=== PATIENT | female | born 1965 | race Caucasian/White ===

== ENCOUNTER → 2022-08-16 | Outpatient (CLI) | payer OTHER, SELFPAY ==
[2022-08-16 12:45] LABS: Absolute Lymphocyte Count 1.35 X10^3/uL (0.83-4.51); Absolute Neutrophil Count 2.8 X10^3/uL (2.0-7.7); Basophil# 0.03 X10^3/uL; Basophil% 0.6 % (0-1); Eosinophil# 0.19 X10^3/uL; Eosinophils% 3.9 % (0-5); Hematocrit 45.2 % (37-47); Hemoglobin 14.8 g/dL (12.0-15.0); Lymphocyte # 1.35 X10^3/ul (0.83-4.51); Lymphocyte % 27.8 % (19-41); Mean Corp Hgb Conc 32.7 g/dL (32-36); Mean Corpuscular Hgb 31.8 pg (27.0-32.0); Monocyte# 0.48 X10^3/uL; Monocyte% 9.9 % (0-10); NRBC Flagged by Analyzer 0 % (0-5); Neutrophil % 57.6 % (47-70); Platelet Count 283 K/mm3 (150-450); RBC Distribution Width CV 13.2 % (11.6-14.6); RBC Distribution Width SD 47.4 fl (35.1-43.9); Red Blood Count 4.66 M/mm3 (4.2-5.4); White Blood Count 4.9 K/mm3 (4.4-11.0)
[2022-08-16 13:08] LABS: Hemoglobin A1c 4.9 % (3.8-5.6)
[2022-08-16 13:17] LABS: ALB/GLOB Ratio 1.1 RATIO (0.9-2.4); AST(SGOT) 21 U/L (15-37); Alanine Aminotransfer ALT/SGPT 30 U/L (13-56); Albumin, Serum 3.9 g/dL (3.2-5.0); Alkaline Phosphatase 108 U/L (45-117); Anion Gap 3 (5-15); BUN 15 mg/dL (7-18); BUN/Creat Ratio 18.1 RATIO (10-20); Calcium,Total 9.4 mg/dL (8.5-10.1); Chloride 107 mmol/L (98-107); Cholesterol 251 mg/dL (200); Creatinine, Serum 0.83 mg/dL (0.55-1.02); EST Glomerular Filtration Rate 75 mL/min (>60); Est Glom Filt Rate - Afr Amer 91 mL/min (>60); Globulin 3.4 g/dL (2.2-4.2); Glucose 95 mg/dL (74-106); High Density Lipoprotein 94 mg/dL; Potassium 4.5 mmol/L (3.5-5.1); Protein, Total 7.3 g/dL (6.4-8.2); Sodium Level 138 mmol/L (136-145); Thyroid Stim Hormone (TSH) 1.49 uIU/mL (0.358-3.74); Triglycerides 82 mg/dL; Very Low Density Lipoprotein 16 mg/dL (5-40)
== END | disposition home or self-care (01) ==
PROVIDERS: PCP Family Medicine; Visit Provider Family Medicine
DX: Z13.0 Encounter for screening for diseases of the blood and blood-forming organs and certain disorders involving the immune mechanism (principal); Z13.228 Encounter for screening for other metabolic disorders; Z13.220 Encounter for screening for lipoid disorders; Z13.1 Encounter for screening for diabetes mellitus
CPT/HCPCS: 36415; 80053; 80061; 83036; 84443; 85025

== ENCOUNTER → 2022-10-26 | Outpatient (CLI) | payer OTHER, SELFPAY ==
--- NOTE | 2022-10-26 13:07 | BI_ITS ---
MAMMOGRAPHY - BILATERAL SCREENING REASON FOR EXAM: Female, 57 years old. Routine annual screening examination. PERTINENT HISTORY: Non-contributory. TECHNIQUE: Digital bilateral breast darius (3D mammographic acquisition) in the CC and MLO projections. 2-D mediolateral oblique (MLO) and craniocaudad (CC) views of both breasts were obtained. CAD: Full Field Digital Mammography with Computer Added Detection was performed. COMPARISON: Comparison is made with prior abdomen examination February 22, 2021. FINDINGS: Breast Composition: The breasts are heterogeneously dense, which may obscure small masses. There are no dominant masses or suspicious calcifications. Stable asymmetry of breast tissue with more breast tissue seen in the upper lateral aspect of the right breast. No other significant abnormalities are identified. There has been no significant change since the prior study. BI/SCRN MAMM (CAD)W/DARIUS BILAT IMPRESSION: Stable bilateral screening mammogram. Yearly follow-up mammogram recommended. (A) ASSESSMENT CATEGORY: BIRADS Category 2: Benign. A letter regarding these results will be sent to the patient by the facility within 30 days. Approximately 10% of breast cancers are not detected by mammography. A normal mammogram should not delay biopsy of a clinically suspicious abnormality. [id number] Electronically Signed: Adi Johns MD at 14:16 EDT ,
== END | disposition home or self-care (01) ==
LOC: OPBI 13:07
PROVIDERS: PCP Family Medicine; Visit Provider Family Medicine
DX: Z12.31 Encounter for screening mammogram for malignant neoplasm of breast (principal)
CPT/HCPCS: 77063; 77067

== ENCOUNTER 2022-12-29 08:48 | Day surgery (SDC) | payer OTHER, SELFPAY ==
[2022-12-29] VITALS (7 sets, daily range): BP systolic 85–124; BP diastolic 40–89; PULSE 52–64; RESP 16; TEMP 36.2–36.3; O2SAT 100; BMI 29.9
[2022-12-29] MEDS: Lactated Ringers 1,000 ML 15 ML IV (09:36)
--- NOTE | 2022-12-29 10:00 | COLBX_PTH ---
PATIENT: CATALINA CHAN LOC: EN U#:[id number] AGE/SX: 57/F ROOM: RE12/29/[address]: Dr. Cheko Kirby DO : 1965 BED: DIS: 12/29/2022 SPEC #: [id number] RECD: 12/29/22 11:47 STATUS: ASH RESpring #: [id number] KWAKU: 12/29/22 10:[address]: Cheko Kirby DEPT: SURGICAL PATHOLOGY RECD BY: Neelima Perry ENTERED: 12/29/22 13:14 SP TYPE: COLON BX OTHR DR: Adri Ambrocio DO Tissues: COLON BIOPSY Procedures: Surgery Specimen Level IV HEADER OPERATION: Colonoscopy - open access (MAC) PRE-OP DIAGNOSIS: Screening TISSUE SUBMITTED: Splenic flexure polyp MICROSCOPIC DIAGNOSIS Colonic polyp at hepatic flexure, biopsy: Tubular adenoma. AM:fabiola 12/30/2022 MICROSCOPIC DESCRIPTION Slides are reviewed. GROSS DESCRIPTION Received in fixative is one container labeled with the patient's name and designated splenic flexure polyp. The specimen consists of two irregular fragments of light tomlin soft tissue that in aggregate measure 0.6 x 0.3 x 0.1 cm. The specimen is totally submitted in one cassette. / SJ:rg 12/29/2022 TC:5 CPT: 00731
--- NOTE | 2022-12-29 10:13 | PCM.HP.STD ---
[facility] - General General Date of Admission: 12/29/22 Date of Service: 12/29/22 Chief Complaint: Screening colonoscopy HPI Narrative CATALINA CHAN, is a 57 F who presents today for a screening colonoscopy. She had a colonoscopy approximately 5 years ago. It was uneventful. She had some small adenomatous polyps that were removed during that colonoscopy. She does not have any problems with bleeding. She has no chest pain or short of breath. She has no nausea, vomiting or diarrhea. Overall she is in fairly good health. She does not take any medicines on a daily basis. [facility] Medical History (Updated 12/27/22 @ 09:33 by Lore Roca) Achilles tendinitis Alcohol use Arthritis Hx of colonic polyp Hx of vaginal after Non-smoker Post-menopausal Wears glasses Home Medications multivitamin 1 tab PO DAILY 11/03/22 [History Last Taken 12/26/22] cholecalciferol (vitamin D3) 25 mcg (1,000 unit) capsule (Vitamin D3) 25 mcg PO DAILY 12/27/22 [History Last Taken Unknown] Allergy/AdvReac Type Severity Reaction Status Date / Time No Known Allergies Allergy Verified 12/27/22 09:27 Surgical History (Updated 12/27/22 @ 09:33 by Lore Roca) Hx of section Hx of colonoscopy Social History (Updated 11/03/22 @ 11:25 by Angie Olvera) Smoking Status: Never smoker ROS Review of Systems ROS Unobtainable: other Constitutional Constitutional: Denies fatigue, fever(s), poor appetite, weight gain or weight loss ENT HEENT: Denies mouth lesions Cardiovascular Cardiovascular: Denies abdominal bloating, abdominal edema or abdominal pain Respiratory/Chest Respiratory/Chest: Denies change in mental status, change in phlegm color, chest congestion or chest tightness Gastrointestinal Gastrointestinal: Denies belching, bloating, change in bowel habits, change in stool character, chewing difficulty, coffee ground emesis, constipation, cramping, diarrhea, dyspepsia, dysphagia, early satiety, excessive flatus, fecal incontinence, heartburn, hematemesis, hematochezia, hemorrhoids, loose stools, melena, nausea, odynophagia, rectal bleeding, tenesmus, vomiting or weight changes Genitourinary Genitourinary: Denies abdominal discomfort, burning urination or itching Musculoskeletal Musculoskeletal: Reports as per HPI; Denies muscle weakness or myalgias Integumentary Integumentary: Denies jaundice Neurologic Neurologic: Denies lack of coordination or weakness Psychiatric Psychiatric: Denies confusion, depression, memory loss, mood swings, paranoia or suicidal ideation Endocrine Endocrinology: Denies systems reviewed and no addt'l complaints, except as documented Hematologic/Lymphatic Hematologic/Lymphatic: Denies anemia, easy bleeding, easy bruising or lymphadenopathy Allergic/Immunologic Allergic/Immunologic: Denies systems reviewed and no addt'l complaints, except as documented Vital Signs Vital Signs Vital Signs: 12/29/22 09:32 12/29/22 09:32 Temperature 97.4 F L Temperature Source Temporal Pulse Rate 59 L Respiratory Rate 16 Respiratory Pattern Normal Blood Pressure 124/89 H Blood Pressure Mean 100 Blood Pressure Position Sitting Blood Pressure Location Right Arm Pulse Ox 100 Oxygen Delivery Method Room Air Weight Weight: 196 lb 13.965 oz Body Mass Index (BMI) 29.9 Physical Exam Const alert, oriented x3, no apparent distress, healthy appearing and well nourished General Appearance: cooperative, comfortable, well kempt and well developed Orientation / Consciousness: awake and oriented to person HEENT Head and Scalp: normocephalic and atraumatic Face and Sinus: normal facial exam Mouth: oral and palatal mucosa normal Eyes General Eye: normal appearance of both eyes Neck full ROM Lymph Lymphatic: no lymphadenopathy noted Chest inspection of chest normal Resp normal respiratory effort and no use of accessory muscles Cardio regular rate and regular rhythm GI normal to inspection, nondistended, normoactive bowel sounds, soft to palpation, non-tender, non-distended and no masses Auscultation: normoactive bowel sounds Palpation: soft Percussion: normal to percussion Rectal Exam: visual inspection normal and normal sphincter tone no CVA tenderness Back/Spine no CVA tenderness and normal ROM Extremity normal to inspection Peripheral Pulses: Yes pulses 2+ throughout Skin no rashes or lesions noted General Skin Exam: no breakdown, elasticity normal and turgor normal Neuro oriented x3 Motor Exam: strength 5/5 throughout Psych mental status grossly normal Appearance: grossly normal Attitude: calm Activity / Motor Behavior: appropriate eye contact Speech: normal speech Thought Process: normal thought process Thought Content: normal thought content Attention / Concentration: attention grossly intact Memory / Cognition: memory grossly intact Insight: insight good Judgement: judgement good Assessment & Plan Assessment/Plan (1) Encounter for screening for malignant neoplasm of colon: PLAN: She was explained alternatives, risk, the including not withstanding bleeding, infection, sepsis, perforation, need for emergent surgery and . She will have an ASA of 2.
--- NOTE | 2022-12-29 10:56 | OP.COLON_ITS ---
Patient Name: Gerri Georges Procedure Date: 12/29/2022 10:17 AM Date of : 1965 Age: 57 Procedure: Colonoscopy Indications: Screening for colorectal malignant neoplasm Providers: Cheko Kirby DO Referring MD: Adri Ambrocio Do Medicines: Monitored Anesthesia Care Patient Profile: This is a 57 year old female. Refer to note in patient chart for documentation of history and physical. Last Colonoscopy: 5 years ago. Complications: No immediate complications. Procedure: Pre-Anesthesia Assessment: - Prior to the procedure, a History and Physical was performed, and patient medications and allergies were reviewed. The risks and benefits of the procedure and the sedation options and risks were discussed with the patient. All questions were answered and informed consent was obtained. Patient identification and proposed procedure were verified by the physician in the pre-procedure area. Mental Status Examination: alert and oriented. Airway Examination: normal oropharyngeal airway and neck mobility. Prophylactic Antibiotics: The patient does not require prophylactic antibiotics. Prior Anticoagulants: The patient has taken no anticoagulant or antiplatelet agents. ASA Grade Assessment: II - A patient with mild systemic disease. After reviewing the risks and benefits, the patient was deemed in satisfactory condition to undergo the procedure. The anesthesia plan was to use monitored anesthesia care (MAC). Immediately prior to administration of medications, the patient was re-assessed for adequacy to receive sedatives. The heart rate, respiratory rate, oxygen saturations, blood pressure, adequacy of pulmonary ventilation, and response to care were monitored throughout the procedure. The physical status of the patient was re-assessed after the procedure. After I obtained informed consent, the scope was passed under direct vision. Throughout the procedure, the patient's blood pressure, pulse, and oxygen saturations were monitored continuously. The Colonoscope was introduced through the anus and advanced to the cecum, identified by appendiceal orifice and ileocecal valve. The colonoscopy was performed without difficulty. The patient tolerated the procedure well. The quality of the bowel preparation was adequate. The ileocecal valve, appendiceal orifice, and rectum were photographed. Scope In: 10:30:02 AM Scope Withdrawal Time 0 hours 9 minutes 36 seconds Scope Out: 10:43:58 AM Total Procedure Duration Time 0 hours 13 minutes 56 seconds Findings: The perianal and digital rectal examinations were normal. A few small-mouthed diverticula were found in the recto-sigmoid colon and sigmoid colon. A 10 mm polyp was found in the splenic flexure. The polyp was sessile. The polyp was removed with a cold snare. Resection and retrieval were complete. Verification of patient identification for the specimen was done. Estimated blood loss was minimal. The exam was otherwise without abnormality on direct and retroflexion views. Impression: - Diverticulosis in the recto-sigmoid colon and in the sigmoid colon. - One 10 mm polyp at the splenic flexure, removed with a cold snare. Resected and retrieved. - The examination was otherwise normal on direct and retroflexion views. Recommendation: - Discharge patient to home. - Resume previous diet. - Continue present medications. - Await pathology results. - Repeat colonoscopy in 5 years for surveillance. Procedure Code(s): --- Professional --- 18592, Colonoscopy, flexible; with removal of tumor(s), polyp(s), or other lesion(s) by snare technique CPT copyright 2021 [employer]. All rights reserved. The codes documented in this report are preliminary and upon jack tamp operator review may be revised to meet current compliance requirements. Cheko Kirby DO 12/29/2022 10:56:12 AM This report has been signed electronically. Number of Addenda: 0 Note Initiated On: 12/29/2022 10:17 AM
--- NOTE | 2022-12-29 10:56 | OP.CCLET_ITS ---
12/29/2022 Adri Ambrocio Do Re : Colonoscopy procedure for Gerri Georges Dear Lolly This procedure was performed on November. My impressions and recommendations are as follows: Impressions : - Diverticulosis in the recto-sigmoid colon and in the sigmoid colon. - One 10 mm polyp at the splenic flexure, removed with a cold snare. Resected and retrieved. - The examination was otherwise normal on direct and retroflexion views. Recommendations : - Discharge patient to home. - Resume previous diet. - Continue present medications. - Await pathology results. - Repeat colonoscopy in 5 years for surveillance. My findings are described in the full procedure note, which is enclosed. If I can be of further assistance, please feel free to contact me at . Sincerely, Cheko Kirby, 12/29/2022 10:56:12 AM This report has been signed electronically.
== END 2022-12-29 11:31 | disposition home or self-care (01) ==
LOC: EN 08:49 → AC 08:50
PROVIDERS: PCP Family Medicine; Referring Provider Family Medicine; Visit Provider Internal Medicine Gastroenterology
PROC: 0DJD8ZZ Inspection of Lower Intestinal Tract, Via Natural or Artificial Opening Endoscopic (ICD-10-PCS; CPT 45378; principal; 2022-12-29 09:55)
DX: Z12.11 Encounter for screening for malignant neoplasm of colon (principal); D12.3 Benign neoplasm of transverse colon; K57.30 Diverticulosis of large intestine without perforation or abscess without bleeding; Z86.010 Personal history of colon polyps
CPT/HCPCS: 45385; 88305; J7120; J2405

== ENCOUNTER → 2024-03-19 | Outpatient (CLI) | payer OTHER, SELFPAY ==
[2024-03-19 18:07] LABS: ALB/GLOB Ratio 1.1 RATIO (0.9-2.4); AST(SGOT) 20 U/L (15-37); Alanine Aminotransfer ALT/SGPT 25 U/L (13-56); Albumin, Serum 4.1 g/dL (3.2-5.0); Alkaline Phosphatase 120 U/L (45-117); Anion Gap 6 (5-15); BUN 17 mg/dL (7-18); Calcium,Total 10.1 mg/dL (8.5-10.1); Chloride 105 mmol/L (98-107); Cholesterol 249 mg/dL (200); EST Glomerular Filtration Rate 68 mL/min (>60); Est Glom Filt Rate - Afr Amer 83 mL/min (>60); Globulin 3.6 g/dL (2.2-4.2); Glucose 96 mg/dL (74-106); High Density Lipoprotein 107 mg/dL; Potassium 4.2 mmol/L (3.5-5.1); Protein, Total 7.7 g/dL (6.4-8.2); Sodium Level 136 mmol/L (136-145); Triglycerides 81 mg/dL; Very Low Density Lipoprotein 16 mg/dL (5-40)
== END | disposition home or self-care (01) ==
PROVIDERS: PCP Family Medicine; Visit Provider Family Medicine
DX: E78.2 Mixed hyperlipidemia (principal); E55.9 Vitamin D deficiency, unspecified
CPT/HCPCS: 36415; 80053; 80061; 82306

== ENCOUNTER 2025-01-09 16:17 | Emergency (ER) | payer OTHER, SELFPAY ==
[2025-01-09 16:19] VITALS: BP 141/75; PULSE 68; RESP 16; TEMP 36.6; O2SAT 100; BMI 31.1
--- NOTE | 2025-01-09 16:37 | EX.ED.GENINJ ---
HPI History of Present Illness Chief Complaint: Bite Detail of Chief Complaint: Bite volar surface right arm, awoke with bat in bedroom Informant: patient Onset/Context/Timing Onset: Weeks (01/01/2025) Mechanism/Context: Puncture Wound (2 puncture wounds mid right forearm volar surface) Location of pain/injuries: Right forearm Location: Forearm both looser Current Severity: Evidence of bite rizwana with no obvious cellulitis or abscess Maximum Severity: Not applicable Worsened by: Nothing Relieved by: Nothing Associated Symptoms Associated Symptoms: Negative for Parasthesias, Weakness, Loss of function, Inability to ambulate, Loss of consciousness or Amnesia Narrative Narrative: Patient is a healthy 59-year-old vitamins who presents because she has a bite to the volar surface of her right forearm. This occurred a week ago. She awoke that morning with a bat in her room. Daughter who is a bat in is concerned this represents a bat bite. Regardless she needs to be vaccinated since she awoke with a bat in her bedroom. She has no fever, chills night sweats. She denies paresthesia, anesthesia or motor weakness. She has no symptoms. Prior similar symptoms: No Recent Illness/Hospitalization: No PFSH PFS Medical History Wears glasses Post-menopausal Alcohol use Arthritis Non-smoker Achilles tendinitis Hx of vaginal after Hx of colonic polyp Home Medications ?Medication ?Instructions ?Recorded ?Last Taken ?Type multivitamin 1 tab PO DAILY 11/03/22 12/26/22 History cholecalciferol (vitamin D3) 25 25 mcg PO DAILY 12/27/22 Unknown History mcg (1,000 unit) capsule (Vitamin D3) Allergy/AdvReac Type Severity Reaction Status Date / Time No Known Allergies Allergy Verified 01/09/25 16:19 Surgical History Hx of section Hx of colonoscopy Social History Smoking Status: Never smoker ROS ROS ED Constitutional Constitutional ED: Denies chills, fever(s), subjective or sweats Eyes Eyes: Denies change in vision Gastrointestinal Gastrointestinal: Denies nausea or vomiting Neurologic Neurologic: Denies paresthesias or weakness EXAM Physical Exam Const Vital Signs: 01/09/25 16:19 Temperature 97.8 F Temperature Source Temporal Pulse Rate 68 Respiratory Rate 16 Blood Pressure 141/75 H Blood Pressure Mean 97 Pulse Ox 100 Oxygen Delivery Method Room Air Positive well nourished and well developed General Appearance ED: well developed and NAD HEENT atraumatic Eyes PERRL Cardio regular rhythm and S1 normal heart sound Extremity full ROM; Negative for normal to inspection Extremity Narrative: Axillary, median, radial and ulnar function intact. Sensation is normal. Patient has 2 puncture wounds volar surface of right forearm. Concerned this may represent a bat bite. Will order rabies immunoglobulin and vaccine. Also will send patient home with order for outpatient vaccination complete series. Neuro oriented x3 and CN's II-XII intact bilaterally Sensorium / Orientation: alert Psych mental status grossly normal and thought process normal Skin No no wounds MDM MDM MDM Narrative Medical decision making narrative: Since patient has puncture wound daughter who is a inspector and mender is concerned this puncture was consistent with bat bite and the fact that she awoke with a bat in her bedroom will vaccinate for rabies. No testing is indicated. Discharge Plan Triage Chief Complaint: Bite ED Provider: Toribio Huntley Dx/Rx/DC Orders Clinical Impression: Bat bite wound, Elevated blood-pressure reading without diagnosis of hypertension Instructions: ED Animal Bite (General), ED Hypertension, To Be Confirmed Prescriptions: No Action multivitamin Tablet 1 tab PO DAILY cholecalciferol (vitamin D3) [Vitamin D3] 25 mcg (1,000 unit) capsule 25 mcg PO DAILY Primary Care Provider: Isaac Pgua Referrals: Isaac Puga MD [Primary Care Provider] - 1-2 Weeks Print Language: Mosotho Disposition Disposition: Home, Self Care
[2025-01-09] MEDS: Rabies Immune Globulin/PF 300 UNIT/ML, 1 ML VIAL 360 UNIT IM (17:20)
[2025-01-09] MEDS: Rabies Immune Globulin/PF 300 UNIT/ML, 5 ML VIAL 1500 UNIT IM (17:20)
[2025-01-09 17:47] VITALS: BP 145/72; PULSE 54; RESP 18; TEMP 36.8; O2SAT 100
== END 2025-01-09 17:48 | disposition home or self-care (01) ==
LOC: ED 16:51
PROVIDERS: Emergency Provider Emergency Medicine; PCP Family Medicine; Visit Provider Emergency Medicine
DX: S50.871A Other superficial bite of right forearm, initial encounter (principal); W55.81XA Bitten by other mammals, initial encounter; R03.0 Elevated blood-pressure reading, without diagnosis of hypertension; Z20.3 Contact with and (suspected) exposure to rabies
CPT/HCPCS: 90675; 96372; 99282; 90375

== ENCOUNTER 2025-01-12 17:19 | Outpatient (CLI) | payer OTHER, SELFPAY ==
[2025-01-12 17:20] VITALS: BP 127/77; PULSE 69; RESP 18; TEMP 36.7; O2SAT 99; BMI 31.6
--- OUTSIDE RECORDS SUMMARY | 2025-01-12 17:37 | XMS RPT_ITS | CCD ---
Author Organization [facility] Care Team Providers Care Director Surface Transportation Name Role Phone MABLEANJELICA SUGAR SOLEDAD Referring Unavailable Janneth Dale MD Primary Care Provider [phone] DO Adri Ambrocio Primary Care Provider [phone] Angie Olvera Attending Provider Unavailable DO Adri Ambrocio Referring Provider Friend, Dr. Still Attending Provider Friend, Dr. Still Other Provider [phone] Janneth Dale MD Primary Care Provider Dr. Soledad Nuñez MD Primary Care Provider Dr. Toribio Huntley MD Emergency Provider [phone] SOLEDAD NUÑEZ Referring Unavailable SOLEDAD NUÑEZ Consulting Unavailable DESTINY PORTER DO Attending Unavailable DESTINY PORTER DO Primary Care Unavailable DESTINY PORTER DO Admitting Unavailable PROVIDER, UNKNOWN Consulting Unavailable Soledad Nuñez Attending Unavailable Soledad Nuñez Primary Care Unavailable Toribio Huntley Attending Unavailable Soledad Nuñez Primary Care Unavailable Medications Current Medications Medication Drug Class(es) Dates Sig (Normalized) Sig (Original) cholecalciferol 0.025 mg oral capsule (5 sources) Vitamin D Start: 12-27-2022 take 1 capsule by mouth once daily Cholecalciferol (Vitamin D3) (Vitamin D3) 25 mcg (1,000 unit) capsule Active 25 ug PO DAILY December 27, 2022 12:00am Start: 05-07-2020 take 1 capsule by [facility] every week cholecalciferol, Vitamin D3, (VITAMIN D3) 1,250 mcg (50,000 unit) cap capsule Indications: Vitamin D deficiency Take 1 capsule by mouth one time a week. 12 capsule 05/07/2020 Active Comment on above: Take 1 capsule by mo uth one time a week. Multivitamin preparation (1 source) Start: 3 take 1 tablet by mouth once daily Multivitamin Active 1 TABLET PO DAILY November 03, 2022 12:00am MULTIVITAMIN TAB (3 sources) Start: 8 MULTIVITAMIN TAB Take one(1) tablet daily. 0 08/03/2007 Active Comment on above: Take one(1) tablet d aily. Multivitamin tablet (1 source) Start: 3 Multivitamin tablet Active 1 {tbl} PO DAILY November 03, 2022 12:00am [place]-3 Fatty Acids-Vitamin E (FISH OIL) 1,000 mg ORAL Cap (3 sources) Start: 1 take 1 capsule by mouth twice daily [place]-3 Fatty Acids-Vitamin E (FISH OIL) 1,000 mg ORAL Cap Take 1 capsule by mouth twice daily. 10/20/2010 Active Start: 10-20-2010 take 1 capsule by mo uth twice daily [place]-3 Fatty Acids-Vitamin E (FISH OIL) 1,000 mg ORAL Cap Take 1 capsule by mouth twice daily. 0 10/20/2010 Active Comment on above: Take 1 capsule by mo uth twice daily. Problems Active Problems Problem Classification Problem Date Documented Date Episodic/Chronic Disorders of lipid metabolism (4 sources) Mixed hyperlipidemia; Translations: [Mixed hyperlipidemia] Onset: 01-25-2019 01-25-2019 Chronic E Codes: Natural/environment (1 source) Mammal bite wound; Translations: [Bitten by other mammals, initial encounter] 01-09-2025 Episodic Joint disorders and dislocations; trauma-related (3 sources) Patellofemoral stress syndrome; Translations: [Patellofemoral disorders, unspecified knee] Onset: 01-11-2012 01-25-2019 Chronic Other circulatory disease (1 source) Elevated blood-pressure reading without diagnosis of hypertension; Translations: [Elevated blood-pressure reading, without diagnosis of hypertension] 01-09-2025 Episodic Other screening for suspected conditions (not mental disorders or infectious disease) (7 sources) Encounter for other screening for malignant neoplasm of breast; Translations: [Patient encounter status] Onset: 06-29-2018 Episodic Other upper respiratory disease (3 sources) Allergic rhinitis due to pollen; Translations: [Allergic rhinitis due to pollen] 03-01-2021 Chronic Varicose veins of lower extremity (3 sources) Venous varices; Translations: [Varicose veins of other sites] 01-25-2019 Episodic Past or Other Problems Problem Classification Problem Date Documented Date Episodic/Chronic Blindness and vision defects (12 sources) Myopia; Translations: [Myopia, unspecified eye] Onset: 08-13-2014 08-13-2014 Episodic Menstrual disorders (1 source) Intermenstrual bleeding - irregular; Translations: [Excessive and frequent menstruation with irregular cycle] Resolved: 01-25-2019 01-25-2019 Chronic Results Test Name Value Interpretation Reference Range Facility ED MED ADMINISTRATION DETAIL on 01-09-2025 ED MED ADMINISTRATION DETAIL [facility] - GERRI GEORGES : 1965, , Medication Administration Record [address] [address] [id number] 01/09/2025 Patient: GERRI GEORGES Sex: Female : 1965 Age: 59y MEASUREMENTS: Wt: 83.9 kg, Ht/Gerber: 68.0 in, BMI: 28.13 ALLERGIES: No known drug allergies Medication Ordered Medication Administration Date/Time Amoxicillin-Clav 15:38 01/09 Amoxicillin-Clav (Augmentin) PO 875 mg-125 mg Tab Given (Augmentin) PO 875 1 tab given. Allergies verified and confirmed 5 rights. Information 15:38 01/09/2025 mg-125 mg Tab 1 reviewed with patient including reason for taking this medication, Tamai Benítez R.N. tab (NOW x1) signs of allergic reaction and precautions. Verbalizes Scanned understanding. - 15:38 Tamia Benítez R.N. Tdap IM 15:35 01/09 Tdap IM DIPTH/TETANUS/PERT > 7yr and older Refused DIPTH/TETANUS/P refused. Refused by patient because of Patient is up-to-date - 15:35 01/09/2025 ERT > 7yr and older 15:46 Ishmael Curry R.N. 0.5 mL (NOW x1) Tdap IM 15:49 01/09 Tdap IM DIPTH/TETANUS/PERT > 7yr and older Refused DIPTH/TETANUS/P refused. Refused by patient because of up to date on tetnus, 15:49 01/09/2025 ERT > 7yr and older recieved one year ago - 15:49 David Lopez D.O. David Lopez D.O. 0.5 mL (NOW x1) 1 of 1 Normal [facility] ED NURSES CLINICAL NOTEon ED NURSES CLINICAL NOTE Nurse Narrative - GERRI GEORGES, : 1965, , Nurse Clinical Narrative [address] [address] [id number] 01/09/2025 14:31:00 Patient: GERRI GEORGES Sex: Female : 1965 Age: 59y Disposition: Discharge to [facility]/Invalid Disposition Decision Time: 15:26 01/09/2025 Departure Time: 15:41 01/09/2025 TRIAGE Arrived by private vehicle. Historian: (patient). Accompanied by family. Patient has a primary care physician. Primary physician (tor). Triage time: 14:34 01/09/2025. Acuity: LEVEL 4. Chief Complaint: BAT BITE. Location of injuries: right forearm. ( pt was in bed about a week ago and had a bat in her bedroom. pt noticed an odd bite rizwana on her right forearm soon after that. pt is concerned from rabies). SEPSIS SCREEN: NEGATIVE. SIRS criteria negative. No possible sources of infection. -- 14:39 01/09/25 EDT Bj Medina R.N. 14:37 01/09/25. BP: 151/71 MAP: 98. HR: 66. RR: 18. O2 saturation: 99% Temperature: 97.9 F. Pain level now 0/10. -- 14:39 01/09/25 EDT Bj Medina R.N. Measurements: 14:39 01/09/25 Wt: 83.9 kg, Ht/Gerber: 68.0 in, BMI: 28.13 -- 14:39 01/09/25 EDT Bj Medina R.N. Medications: Vitamin D3 Complete 18 mg iron-800 mcg-150 mg tablet -- 14:37 01/09/25 EDT Bj Medina R.N. 1 of 3 Nurse Jesus - GERRI GEORGES, : 1965, , Allergies: no known drug allergies -- 14:37 01/09/25 EDT Bj Medina R.N. Problems: no known problem -- 14:37 01/09/25 EDT Bj Medina R.N. Surgeries: -- 14:37 01/09/25 EDT Bj Medina R.N. Lasik -- 14:37 01/09/25 EDT Bj Medina R.N. History 14:34 01/09/25. SOCIAL HX: Never smoker. Occasional alcohol use. No drug use. The patient has not traveled outside the [place] Infectious disease exposure: No infectious disease exposure. ABUSE ASSESSMENT: Abuse denied. SELF HARM ASSESSMENT: Self harm assessment was performed. The patient answered no to the question(s) Do you have thoughts of harming or killing yourself? and Do you have a plan for harming or killing yourself?. FALL RISK ASSESSMENT: Fall risk assessment completed. No risk factors identified. -- 14:39 01/09/25 EDT Bj Medina R.N. Interventions 14:01/09/25. Advanced care plan discussed with patient. Patient does not have advanced directive. -- 14:39 01/09/25 EDT Bj Medina R.N. PHYSICAL ASSESSMENT 15:00 01/09/25. GENERAL / NEURO / PSYCH: Alert. Oriented X 4. Appears in no acute distress. RESPIRATORY: Respirations not labored. Breath sounds within normal limits. 2 of 3 Nurse Narrative - GERRI GEORGES, : 1965, , CVS: Normal heart rate and rhythm. EXTREMITIES: Right forearm: single puncture wound. -- 15:44 01/09/25 EDT Tamia Benítez R.N. NURSING PROGRESS NOTES 15:11 01/09/25. ED physician at the patient's bedside. -- 15:11 01/09/25 EDT Tamia Benítez R.N. 15:35 01/09/25. Tdap IM DIPTH/TETANUS/PERT > 7yr and older: Medication Refused. Refused by patient because of Patient is up-to-date -- 15:46 01/09/25 EDT Tamia Benítez R.N. 15:38 01/09/25. Amoxicillin-Clav (Augmentin) PO 875 mg-125 mg Tab 1 tab given. Allergies verified and confirmed 5 rights. Information reviewed with patient including reason for taking this medication, signs of allergic reaction and precautions. Verbalizes understanding. -- 15:38 01/09/25 EDT Tamia Benítez R.N. 15:49 01/09/25. Tdap IM DIPTH/TETANUS/PERT > 7yr and older: Medication Refused. Refused by patient because of up to date on tetnus, recieved one year ago -- 15:49 01/09/25 EDT David Lopez D.O. DISPOSITION / DISCHARGE 15:33 01/09/25. BP: 141/74 MAP: 96. HR: 66. Regular and normal rate. RR: 15. O2 saturation: 96% on room air. Temperature: Deferred . Pain level now 0/10. -- 15:49 01/09/25 EDT Tamia Benítez R.N. Departure time: 15:41 01/09/2025. Condition at departure: stable. No learning barriers present. Discharge instructions provided and reviewed with the patient. Reviewed medication(s) side effects, precautions, dosing and course information. Prescription(s) sent electronically to pharmacy. Reviewed referrals (Patient is to go to [place] [facility] for rabies vaccination). Patient verbalized understanding. Written instructions provided in Maori. The patient was discharged home and accompanied by spouse. The patient left ambulatory and via private vehicle. Spouse driving. -- 15:50 01/09/25 EDT Tamia Benítez R.N. (Electronically signed by Tamia Benítez R.N. 01/09/25 15:53:05 EDT) Generated by [facility] 3 of 3 [facility] ED ORDER SHEET (CPOE ONLY)on 01-09-2025 ED ORDER SHEET (CPOE ONLY) Order Sheet - GERRI GEORGES, : 1965, , Order Sheet [address] [address] [id number] 01/09/2025 Patient: GERRI GEORGES Sex: Female : 1965 Age: 59y MEASUREMENTS: Wt: 83.9 kg, Ht/Gerber: 68.0 in, BMI: 28.13 ALLERGIES: No known drug allergies MEDICATION/IV/DRIP/F LUID ORDERS Order Description Priority Entered Acknowledged Completed Amoxicillin-Clav (Augmentin) 15:22 01/09/2025 15:34 15:38 PO 875 mg-125 mg Tab1 tab David Lopez D.O. 01/09/2025 01/09/2025 (NOW x1) Tamia Curry, R.N. R.N. Tdap IM DIPTH/TETANUS/PERT 15:22 01/09/2025 15:34 15:46 > 7yr and older0.5 mL (NOW x1) David Lopez D.O. 01/09/2025 01/09/2025 Tamia Curry, R.N. R.N. LAB ORDERS Order Description Priority Entered Acknowledged Collected Completed DIAGNOSTIC STUDY ORDERS Order Description Priority Entered Acknowledged Completed STAFF ORDERS Order Description Priority Entered Acknowledged Collected Completed 1 of 2 Order Sheet - GERRI GEORGES, : 1965, , [Electronically signed by David Lopez D.O. (01/09/2025 19:33 EDT)] 2 of 2 Normal [facility] ED PHYSICIAN CLINICAL REPORT on 01-09-2025 ED PHYSICIAN CLINICAL REPORT Narrative - GERRI GEORGES, : 1965, , Physician Clinical Narrative [address] [address] [id number] 01/09/2025 14:31:00 Patient: GERRI GEORGES Sex: Female : 1965 Age: 59y Disposition: Discharge to Duplicate/Invalid Disposition Decision Time: 15:26 01/09/2025 Departure Time: 15:41 01/09/2025 Measurements Wt: 83.9 kg, Ht/Gerber: 68.0 in, BMI: 28.13 Initial Vital Sign Measured Time BP MAP HR RR O2Sat ETCO2 Temp Pain GCS RTS 14:37 01/09/2025 151/71 98 66 18 99% 97.9 F 0 Time Seen: 14:56 01/09/2025. Arrived- By private vehicle. Historian- patient. Independent historian- family. HISTORY OF PRESENT ILLNESS Chief Complaint: BAT BITE. Location of injuries- right forearm. The animal was not captured. The patient has had itching. REVIEW OF SYSTEMS CONSTITUTIONAL: No fever. GI: No nausea, abdominal pain or vomiting. CVS: No chest pain. RESPIRATORY: No difficulty breathing. NEUROLOGICAL: No numbness, headache or weakness. MUSCULOSKELETAL: The patient has had swelling. PAST HISTORY 1 of 4 Narrative - GERRI GEORGES, : 1965, , See nurses notes. no known problem Surgeries: Lasik Medications: Vitamin D3 Complete 18 mg iron-800 mcg-150 mg tablet Allergies: no known drug allergies SOCIAL HISTORY Never smoker. No alcohol use or drug use. ADDITIONAL NOTES The nursing notes have been reviewed. PHYSICAL EXAM Appearance: Alert. Oriented X3. No acute distress. Head: Head normal on inspection. Eyes: Eyes normal inspection. ENT: Nose normal on inspection. Mouth normal on inspection. Neck: Normal inspection. Neck non-tender. Painless ROM. CVS: Heart sounds normal. Pulses normal. Respiratory: Chest normal on inspection. Breath sounds normal. Chest nontender. Abdomen: Normal inspection. Soft and nontender. Bowel sounds normal. Back: ROM normal. Skin: (small bite wound noted to volar aspect right forearm. Looks like 2 puncture wounds side by side. Mildly red. No lymphangitic streaking.). Extremities: Right forearm: mild erythema and swelling and multiple puncture wounds with controlled bleeding located in the mid volar aspect of forearm. No tenderness, laceration, abrasion, ecchymosis or foreign body. No deformity. No avulsion. Neuro: Oriented X 3. No motor deficit. No sensory deficit. 2 of 4 Narrative - GERRI GEORGES, : 1965, , PROGRESS AND PROCEDURES MEDICAL DECISION MAKING: Antibiotics were given. (Tdap 0.5 cc IM). (59 year old white female states that she noted a bat flying around in her bedroom last week on monday eveing / Monday am. About the same time noted a bite wound to volar aspect right forearm but doesn't know if the bat bit her. Sister is a vetrinarian and was concerned about rabies and told patient to come to ER for rabies vaccination. On exam I do note two small puncture wounds side by side to volar mid forearm with a small amount of surrounding redness. Not warm or tender to touch. No lymphangitic streaking. We do not carry the rabies vaccine here. [place] [facility] does carry it and so does the [facility] department. But not the [facility] department. I advised patient to go to [place] ER. But they can try following with the health deparment in [place] today if they wish but I told her we need to get the vaccine series started TODAY. So wherever place can get things going today. I told her I felt the ER in [place] is a better choice because they are open 21/11. Patient up to date on her tetnus. Got one one year ago, so I canceled my tetnus shot order.). Disposition: Condition: good. Disposition Decision Time: 15:26 01/09/2025. Patient discharged to Duplicate/Invalid. Discharged in good condition. Discharge decision based on the following: patient's condition is stable; patient is ambulatory; patient's pain is controlled; patient's exam is stable; stable condition on multiple repeat evaluations; social support is adequate; transportation is available; follow-up is available; clinical impression is consistent with outpatient treatment. Go directly to [facility] ER now to get the rabies vaccine. CLINICAL IMPRESSION Multiple superficial bat bites to the right forearm. DISCHARGE INSTRUCTIONS (Go directly to [facility] for the rabies series of shots now. We don't have the rabies vaccine here. [facility] in [place], [place] also has the rabies vaccine and they are open till 4:30 pm but the ER in [place] might be more reliable palce to go. Take medication as prescribed.). Warnings: GENERAL WARNINGS: Return or contact your physician immediately if your condition worsens or changes unexpectedly, if not improvin (more content not included)... Normal [facility] ED [facility] 1965, , [id number] [place] [address] [id number] 01/09/2025 Patient: GERRI GEORGES Sex: Female : 1965 Age: 59y Item Professional Category Description Facility Code Code Quantity Fee Total Nurse/E/M EMERGENCY 086279 1 $0.00 $0.00 DEPARTMENT VISIT MODERATE SEVERITY (54185) Grand Total $0.00 Providers David Lopez D.O. Chief Complaint BAT BITE. Principal Diagnosis Multiple superficial bat bites to the right forearm. ICD-10 Codes 1 of 2 GERRI Lu, : 1965, , S50.871A: Other superficial bite of right forearm, initial encounter 2 of 2 Normal [facility] ED VISIT SUMMARYon ED VISIT SUMMARY Visit Overview - GERRI GEORGES, : 1965, , Visit [id number] [place] [address] [id number] 01/09/2025 Patient: GERRI GEORGES Sex: Female : 1965 Age: 59y 01/09/2025 07:33 PM EDT ED Arrival:14:31 01/09/2025 EDT Status: Recent Travel:no Language:eng Adv Directive:No Isolation Status: Ethnicity:N Fall Risk:no risk Infectious Disease Exposure:no Measurements:5'8 / 172.7 Self-Harm Status:no risk Sepsis Screen:negative cm 185.0 lb / 83.9 kg Chief Complaint:BAT, (pt was in bed about a week ago and had a bat in her bedroom. pt noticed an odd bite rizwana on her right forearm soon after that. pt is concerned from rabies), and (schinner) ALLERGIES No Known Drug Allergies HOME MEDICATIONS Vitamin D3 Complete 18 mg iron-800 mcg-150 mg tablet 1 of 3 Visit David - GERRI GEORGES, : 1965, , PAST MEDICAL HISTORY / PROBLEMS None See nurses notes PAST SURGICAL HISTORY Lasik SOCIAL HISTORY Smoking status: No Alcohol use: Yes Drug use: No ED COURSE MEDICATIONS GIVEN IN EMERGENCY DEPARTMENT 15:38 01/09/25 Amoxicillin-Clav (Augmentin) PO 875 mg-125 mg Tab 1 tab IV SITE INFORMATION INTAKE OUTPUT REASSESMENT (most recent) 15:00 01/09/25. GENERAL / NEURO / PSYCH: Alert. Oriented X 4. Appears in no acute distress. RESPIRATORY: Respirations not labored. Breath sounds within normal limits. CVS: Normal heart rate and rhythm. EXTREMITIES: Right forearm: single puncture wound. VITAL SIGNS First Vitals Last Vitals Temp 14:37 01/09/25 97.9 F Temp 15:33 01/09/25 BP 14:37 01/09/25 151/71 BP 15:33 01/09/25 141/74 HR 14:37 01/09/25 66 HR 15:33 01/09/25 66 RR 14:37 01/09/25 18 RR 15:33 01/09/25 15 O2 Sat 14:37 01/09/25 99% O2 Sat 15:33 01/09/25 96% RA 2 of 3 Visit GERRI Perez, : 1965, , First Vitals Last Vitals Pain 14:37 01/09/25 0 Pain 15:33 01/09/25 0 ETCO2 14:37 01/09/25 ETCO2 15:33 01/09/25 GCS 14:37 01/09/25 GCS 15:33 01/09/25 RTS 14:37 01/09/25 RTS 15:33 01/09/25 PROCEDURES NURSING INTERVENTIONS LABS / STUDIES CLINICAL IMPRESSION MULTIPLE SUPERFICIAL BAT BITES TO THE RIGHT FOREARM 3 of 3 Normal [facility] ED VITALS FLOW SHEETon 01-09 ED VITALS FLOW SHEET Vitals - GERRI GEORGES, : 1965, , Vital Sign Flow Sheet [address] [address] [id number] 01/09/2025 Patient: GERRI GEORGES Sex: Female : 1965 Age: 59y Measurements Wt: 83.9 kg, Ht/Gerber: 68.0 in, BMI: 28.13 Measured Time BP MAP HR RR O2Sat ETCO2 Temp Pain GCS RTS 15:33 01/09/2025 141/74 96 66 15 96% RA 0 14:37 01/09/2025 151/71 98 66 18 99% 97.9 F 0 1 of 1 Normal [facility] Emergency Department Summary on 01-09-2025 Emergency Department Summary [facility] Medical Records Department [address] [place] [address] Emergency Department Summary 01/09/25 MR#: [id number] Acct: [id number] Name: GERRI GEORGES Rep #: [id number] : 1965 59 From: Toribio Huntley MD PCP: Dr. Soledad Nuñez MD Status:PRE ER Location: ED HPI History of Present Illness Chief Complaint: Bite Detail of Chief Complaint: Bite volar surface right arm, awoke with bat in bedroom Informant: patient Onset/Context/Timing Onset: Weeks (01/01/2025) Mechanism/Context: Puncture Wound (2 puncture wounds mid right forearm volar surface) Location of pain/injuries: Right forearm Location: Forearm both looser Current Severity: Evidence of bite rizwana with no obvious cellulitis or abscess Maximum Severity: Not applicable Worsened by: Nothing Relieved by: Nothing Associated Symptoms Associated Symptoms: Negative for Parasthesias, Weakness, Loss of function, Inability to ambulate, Loss of consciousness or Amnesia Narrative Narrative: Patient is a healthy 59-year-old vitamins who presents because she has a bite to the volar surface of her right forearm. This occurred a week ago. She awoke that morning with a bat in her room. Daughter who is a bat in is concerned this represents a bat bite. Regardless she needs to be vaccinated since she awoke with a bat in her bedroom. She has no fever, chills night sweats. She denies paresthesia, anesthesia or motor weakness. She has no symptoms. Prior similar symptoms: No Recent Illness/Hospitalizat ion: No PFSH PFSH Medical History Wears glasses Post-menopausal Alcohol use Arthritis Non-smoker Achilles tendinitis Hx of vaginal after Hx of colonic polyp Home Medications ???Medication ???Instructions ???Recorded ???Last Taken ???Type multivitamin 1 tab PO DAILY 11/03/22 12/26/22 H istory cholecalciferol (vitamin D3) 25 25 mcg PO DAILY 12/27/22 Unknown H istory mcg (1,000 unit) capsule (Vitamin D3) Allergy/AdvReac Type Severity Reaction Status Date / Time No Known Allergies Allergy Verified 01/09/25 16:19 Surgical History Hx of section Hx of colonoscopy Social History Smoking Status: Never smoker ROS ROS ED Constitutional Constitutional ED: Denies chills, fever(s), subjective or sweats Eyes Eyes: Denies change in vision Gastrointestinal Gastrointestinal: Denies nausea or vomiting Neurologic Neurologic: Denies paresthesias or weakness EXAM Physical Exam Const Vital Signs: 01/09/25 16:19 Temperature 97.8 F Temperature Source Temporal Pulse Rate 68 Respiratory Rate 16 Blood Pressure 141/75 H Blood Pressure Mean 97 Pulse Ox 100 Oxygen Delivery Method Room Air Positive well nourished and well developed General Appearance ED: well developed and NAD HEENT atraumatic Eyes PERRL Cardio regular rhythm and S1 normal heart sound Extremity full ROM; Negative for normal to inspection Extremity Narrative: Axillary, median, radial and ulnar function intact. Sensation is normal. Patient has 2 puncture wounds volar surface of right forearm. Concerned this may represent a bat bite. Will order rabies immunoglobulin and vaccine. Also will send patient home with order for outpatient vaccination complete series. Neuro oriented x3 and CN's II-XII intact bilaterally Sensorium / Orientation: alert Psych mental status grossly normal and thought process normal Skin No no wounds MDM MDM MDM Narrative Medical decision making narrative: Since patient has puncture wound daughter who is a right of way maintenance supervisor is concerned this puncture was consistent with bat bite and the fact that she awoke with a bat in her bedroom will vaccinate for rabies. No testing is indicated. Discharge Plan Triage Chief Complaint: Bite ED Provider: Toribio Huntley Dx/Rx/DC Orders Clinical Impression: Bat bite wound, Elevated blood-pressure reading without diagnosis of hypertension Instructions: ED Animal Bite (General), ED Hypertension, To Be Confirmed Prescriptions: No Action multivitamin Tablet 1 tab PO DAILY cholecalciferol (vitamin D3) [Vitamin D3] 25 mcg (1,000 unit) capsule 25 mcg PO DAILY Primary Care Provider: Soledad Nuñez Referrals: Soledad Nuñez MD [Primary Care Provider] - 1-2 Weeks Print Language: Maori Disposition Disposition: Home, Self Care What to do if you have Problems For any increased pain, shortness of breath, bleeding, nausea or vomiting, chest pain, or any unexpected problems, contact your Primary Care Provider. Call [facility] ([phone]) or report to the closest Emergency Room. Ca (more content not included)... Normal [facility] Comprehensive Metabolic Prof alvaro 03-19-2024 Albumin [Mass/Vol] 4.1 g/dL Normal 3.2-5.0 [facility] Comment on above: Order Comment: Order Date: 03/19/24 Order Info: [id number] - CMP Order Info: [id number] - LIPID Performed By: #### L 506.1000, L500.4100, L500.4050 #### [facility] [address] Kit [place], [address] Albumin/Globulin [Mass ratio] 1.1 {ratio} Normal 0.9-2.4 [facility] Comment on above: Order Comment: Order Date: 03/19/24 Order Info: [id number] - CMP Order Info: [id number] - LIPID Performed By: #### L 506.1000, L500.4100, L500.4050 #### [facility] [address] [place], [address] ALK P 120 U/L High 45-117 [facility] Comment on above: Order Comment: Order Date: 03/19/24 Order Info: [id number]- - CMP Order Info: [id number] - LIPID Performed By: #### L 506.1000, L500.4100, L500.4050 #### [facility] [address] [place], [address] ALT [Catalytic activity/Vol] 25 U/L Normal 13-56 [facility] Comment on above: Order Comment: Order Date: 03/19/24 Order Info: [id number]- - CMP Order Info: [id number] - LIPID Performed By: #### L 506.1000, L500.4100, L500.4050 #### [facility] [address] [place], [address] AST [Catalytic activity/Vol] 20 U/L Normal 15-37 [facility] Comment on above: Order Comment: Order Date: 03/19/24 Order Info: [id number]- - CMP Order Info: [id number] - LIPID Performed By: #### L 506.1000, L500.4100, L500.4050 #### [facility] [address] [place], [address] Bilirubin [Mass/Vol] 0.60 mg/dL Normal 0.20-1.00 [facility] Comment on above: Order Comment: Order Date: 03/19/24 Order Info: [id number] - CMP Order Info: [id number] - LIPID Result Comment: For patients on eltrombopag therapy, use of [employer] TBIL is not recommended. Performed By: #### L 506.1000, L500.4100, L500.4050 #### [facility] [address] [place], [address] BUN/CRE 19.0 RATIO Normal 10-20 [facility] Comment on above: Order Comment: Order Date: 03/19/24 Order Info: 07-1 - CMP Order Info: [id number] - LIPID Performed By: #### L 506.1000, L500.4100, L500.4050 #### [facility] [address] [place], [address] CA,Total 10.1 mg/dL Normal 8.5-10.1 [facility] Comment on above: Order Comment: Order Date: 03/19/24 Order Info: [id number]- - CMP Order Info: [id number] - LIPID Performed By: #### L 506.1000, L500.4100, L500.4050 #### [facility] [address] [place], [address] Chloride [Moles/Vol] 105 mmol/L Normal 98-107 [facility] Comment on above: Order Comment: Order Date: 03/19/24 Order Info: [id number] - CMP Order Info: [id number] - LIPID Performed By: #### L 506.1000, L500.4100, L500.4050 #### [facility] [address] [place], [address] CO2 [Moles/Vol] 26.0 mmol/L Normal 21.0-32.0 [facility] Comment on above: Order Comment: Order Date: 03/19/24 Order Info: [id number] - CMP Order Info: [id number] - LIPID Performed By: #### L 506.1000, L500.4100, L500.4050 #### [facility] [address] [place], [address] Creatinine [Mass/Vol] 0.90 mg/dL Normal 0.55-1.02 [facility] Comment on above: Order Comment: Order Date: 03/19/24 Order Info: [id number] - CMP Order Info: [id number] - LIPID Result Comment: The validity of the calculated GFR GFRAA in patients over 70 years has not been determined. Clinical correlation is essential. Performed By: #### L 506.1000, L500.4100, L500.4050 #### [facility] [address] [place], [address] EST GFR - AA 83 mL/min Normal >60 [facility] Comment on above: Order Comment: Order Date: 03/19/24 Order Info: [id number] - CMP Order Info: [id number] - LIPID Result Comment: Afri can [place] GFR Calc Performed By: #### L 506.1000, L500.4100, L500.4050 #### [facility] [address] [place], [address] GAP 6 Normal 5-15 [facility] Comment on above: Order Comment: Order Date: 03/19/24 Order Info: [id number] - CMP Order Info: [id number] - LIPID Performed By: #### L 506.1000, L500.4100, L500.4050 #### [facility] [address] [place], [address] GFR/1.73 sq M.predicted among non-blacks MDRD (S/P/Bld) [Vol rate/Area] 68 mL/min/{1.73_m2} Normal >60 [facility] Comment on above: Order Comment: Order Date: 03/19/24 Order Info: [id number] - CMP Order Info: [id number] - LIPID Result Comment: Non- GFR Calc Performed By: #### L 506.1000, L500.4100, L500.4050 #### [facility] [address] [place], [address] Globulin (S) [Mass/Vol] 3.6 g/dL Normal 2.2-4.2 [facility] Comment on above: Order Comment: Order Date: 03/19/24 Order Info: [id number] - CMP Order Info: [id number] - LIPID Performed By: #### L 506.1000, L500.4100, L500.4050 #### [facility] [address] [place], [address] Glucose [Mass/Vol] 96 mg/dL Normal 74-106 [facility] Comment on above: Order Comment: Order Date: 03/19/24 Order Info: [id number] - CMP Order Info: [id number] - LIPID Performed By: #### L 506.1000, L500.4100, L500.4050 #### [facility] [address] [place], [address] Potassium [Moles/Vol] 4.2 mmol/L Normal 3.5-5.1 [facility] Comment on above: Order Comment: Order Date: 03/19/24 Order Info: 07- - CMP Order Info: [id number] - LIPID Performed By: #### L 506.1000, L500.4100, L500.4050 #### [facility] [address] [place], [address] Sodium [Moles/Vol] 136 mmol/L Normal 136-145 [facility] Comment on above: Order Comment: Order Date: 03/19/24 Order Info: [id number]- - CMP Order Info: [id number] - LIPID Performed By: #### L 506.1000, L500.4100, L500.4050 #### [facility] [address] [place], [address] T PROT 7.7 g/dL Normal 6.4-8.2 [facility] Comment on above: Order Comment: Order Date: 03/19/24 Order Info: [id number] - CMP Order Info: [id number] - LIPID Performed By: #### L 506.1000, L500.4100, L500.4050 #### [facility] [address] [place], [address] Urea nitrogen [Mass/Vol] 17 mg/dL Normal 7-18 [facility] Comment on above: Order Comment: Order Date: 03/19/24 Order Info: [id number] - CMP Order Info: [id number] - LIPID Performed By: #### L 506.1000, L500.4100, L500.4050 #### [facility] [address] [place], [address] Lipid Profileon 03-19-2024 Cholesterol [Mass/Vol] 249 mg/dL High [address] [facility] Comment on above: Order Comment: Order Date: 03/19/24 Order Info: [id number] - CMP Order Info: [id number] - LIPID Result Comment: <200 mg/dL Desirable 200-240 mg/dL Borderline >240 mg/dL High Risk Performed By: #### L 506.1000, L500.4100, L500.4050 #### [facility] [address] [place], [address] Cholesterol in HDL [Mass/Vol] 107 mg/dL Normal [facility] Comment on above: Order Comment: Order Date: 03/19/24 Order Info: [id number] - CMP Order Info: [id number] - LIPID Result Comment: The drugs N-Acetylcysteine and Metamizole may falsely depress this assay. Reference Range HDL <40 mg/dL Low HDL Cholesterol HDL >or= 60 mg/dL High HDL Cholesterol Performed By: #### L 506.1000, L500.4100, L500.4050 #### [facility] [address] [place], [address] Cholesterol in LDL [Mass/Vol] 126 mg/dL Normal 0-130 [facility] Comment on above: Order Comment: Order Date: 03/19/24 Order Info: [id number] - CMP Order Info: [id number] - LIPID Performed By: #### L 506.1000, L500.4100, L500.4050 #### [facility] [address] [place], [place], [address] Cholesterol in VLDL [Mass/Vol] 16 mg/dL Normal 5-40 [facility] Comment on above: Order Comment: Order Date: 03/19/24 Order Info: [id number] - CMP Order Info: [id number] - LIPID Performed By: #### L 506.1000, L500.4100, L500.4050 #### [facility] [address] [place], [address] Triglyceride [Mass/Vol] 81 mg/dL Normal [facility] Comment on above: Order Comment: Order Date: 03/19/24 Order Info: [id number] - CMP Order Info: [id number] - LIPID Result Comment: The drugs N-Acetylcysteine and Metamizole may falsely depress this assay. Serum Triglycerides Reference Interval Normal <150 mg/dL Borderline high 150 - 199 mg/dL High 200 - 499 mg/dL Very High > or = 500 mg/dL Performed By: #### L 506.1000, L500.4100, L500.4050 #### [facility] [address] [place], [place], [address] Vitamin D,25 Hydroxyon 03-19 Vitamin D 25-OH 34.0 ng/mL Normal [facility] Comment on above: Order Comment: Order Date: 03/19/24 Order Info: [id number] - [id number] Result Comment: Mary min D 25(OH) Status Range Deficiency <20 ng/mL (50nmol/L) Insufficiency 20 - 30 ng/mL (50 - 75 nmol/L) Sufficiency 30 - 100 ng/mL (75 - 250 nmol/L) Toxicity >100 ng/mL (>250 nmol/L) Performed By: #### L 506.1000, L500.4100, L500.4050 #### [facility] [address] [place], [place], [address] Absolute lymphocyte countOrd ered By: Adri Ambrocio on 08-16-2022 Lymphocytes Auto (Unsp spec) [#/Vol] 1.35 10*3/uL 0.83-4.51 [facility] Basophil percentageOrdered B y: Adri Ambrocio on 08-16-2022 Basophils/100 WBC (Bld) 0.6 % 0-1 [facility] Bilirubin [Mass/Vol] 0.50 mg/dL 0.20-1.00 [facility] Comment on above: For patients on eltr ombopag therapy, use of [employer] TBIL is not recommended. Chloride [Moles/Vol] 107 mmol/L 98-107 [facility] Cholesterol [Mass/Vol] 251 mg/dL <[address] [facility] Comment on above: <200 mg/dL Desirable 200-240 mg/dL Borderline >240 mg/dL High Risk Eosinophils/100 WBC (Bld) 3.9 % 0-5 [facility] Glucose [Mass/Vol] 95 mg/dL 74-106 [facility] Neutrophils (Bld) [#/Vol] 2.8 10*3/uL 2.0-7.7 [facility] Neutrophils/100 WBC (Bld) 57.6 % 47-70 [facility] Potassium [Moles/Vol] 4.5 mmol/L 3.5-5.1 [facility] Protein [Mass/Vol] 7.3 g/dL 6.4-8.2 [facility] Sodium [Moles/Vol] 138 mmol/L 136-145 [facility] Triglyceride [Mass/Vol] 82 mg/dL <199 [facility] Comment on above: The drugs N-Acetylcy steine and Metamizole may falsely depress this assay.Serum Triglycerides Reference Interval Normal <150 mg/dL Borderline high 150 - 199 mg/dL High 200 - 499 mg/dL Very High > or = 500 mg/dL WBC (Bld) [#/Vol] 4.9 10*3/uL 4.4-11.0 [facility] Blood erythrocytes count (nu mber/volume)Ordered By: Adri Ambrocio on 08-16-2022 RBC (Bld) [#/Vol] 4.66 10*6/uL 4.2-5.4 [facility] Blood hemoglobin measurement (mass/volume)Ordered By: Adri Ambrocio on 08-16-2022 Hemoglobin (Bld) [Mass/Vol] 14.8 g/dL 12.0-15.0 [facility] Blood lymphocytes/100 leukoc ytesOrdered By: Adri Ambrocio on 08-16-2022 Lymphocytes/100 WBC (Bld) 27.8 % 19-41 [facility] Blood monocytes/100 leukocyt esOrdered By: Adri Ambrocio on 08-16-2022 Monocytes/100 WBC (Bld) 9.9 % 0-10 [facility] Blood platelet mean volumeOr dered By: Adri Ambrocio on 08-16-2022 Platelet mean volume (Bld) [Entitic vol] 10.0 fL 6.2-12.0 [facility] Determination of erythrocyte mean corpuscular volume (MCV)Ordered By: Adri Ambrocio on 08-16-2022 MCV (RBC) [Entitic vol] 97.0 fL 81-99 [facility] Hematocrit Auto (Bld) [Volum e fraction]Ordered By: Adri Ambrocio on 08-16-2022 Hematocrit (Bld) [Volume fraction] 45.2 % 37-47 [facility] - Chemistry and C hemistry - challengeOrdered By: Adri Ambrocio on 08-16-2022 ALP [Catalytic activity/Vol] 108 U/L 45-117 [facility] ALT [Catalytic activity/Vol] 30 U/L 13-56 [facility] CO2 [Moles/Vol] 28.0 mmol/L 21.0-32.0 [facility] Globulin (S) [Mass/Vol] 3.4 g/dL 2.2-4.2 [facility] Urea nitrogen/Creatinine [Mass ratio] 18.1 mg/mg 10-20 [facility] - Hematology and Cell countsOrdered By: Adri Ambrocio on 08-16-2022 Erythrocyte distribution width (RBC) [Entitic vol] 47.4 fL 35.1-43.9 [facility] Erythrocyte distribution width (RBC) [Ratio] 13.2 % 11.6-14.6 [facility] Immature granulocytes/100 WBC (Bld) 0.200 % 0.0-0.9 [facility] Comment on above: IG% - Immature Granu locytes (promyelocytes, myelocytes and metamyelocytes) > 1% indicates that a LEFT SHIFT is Present. MCH (RBC) [Entitic mass] 31.8 pg 27.0-32.0 [facility] Nucleated RBC/100 WBC (Bld) [Ratio] 0 % 0-5 [facility] MCHC Auto (RBC) [Mass/Vol]Or dered By: Adri Ambrocio on 08-16-2022 MCHC (RBC) [Mass/Vol] 32.7 g/dL 32-36 [facility] No Panel InformationOrdered By: Adri Ambrocio on 08-16-2022 Estimated GFR (MDRD) Amer 91 mL/min >60 [facility] Comment on above: GFR Calc Estimated GFR (MDRD) Non-Af Amer 75 mL/min >60 [facility] Comment on above: Non- GFR Calc Thyroid Stimulating Hormone (TSH) 1.49 uIU/mL 0.358-3.74 [facility] Platelets bldOrdered By: Christian Ambrocio on 08-16-2022 Platelets (Bld) [#/Vol] 283 10*3/uL 150-450 [facility] Serum or plasma albumin maria antonia urement (mass/volume)Ordered By: Adri Ambrocio on 08-16-2022 Albumin [Mass/Vol] 3.9 g/dL 3.2-5.0 [facility] Serum or plasma albumin/glob ulin mass ratioOrdered By: Adri Ambrocio on 08-16-2022 Albumin/Globulin [Mass ratio] 1.1 {ratio} 0.9-2.4 [facility] Serum or plasma calcium maria antonia urement (mass/volume)Ordered By: Adri Ambrocio on 08-16-2022 Calcium [Mass/Vol] 9.4 mg/dL 8.5-10.1 [facility] Serum or plasma cholesterol in HDL measurement (mass/volume)Ordered By: Adri Ambrocio on 08-16-2022 Cholesterol in HDL [Mass/Vol] 94 mg/dL >40 [facility] Comment on above: The drugs N-Acetylcy steine and Metamizole may falsely depress this assay. Reference Range HDL <40 mg/dL Low HDL Cholesterol HDL >or= 60 mg/dL High HDL Cholesterol Serum or plasma cholesterol in VLDL measurement (mass/volume)Ordered By: Adri Ambrocio on 08-16-2022 Cholesterol in VLDL [Mass/Vol] 16 mg/dL 5-40 [facility] Serum or plasma creatinine m easurement (mass/volume)Ordered By: Adri Ambrocio on 08-16-2022 Creatinine [Mass/Vol] 0.83 mg/dL 0.55-1.02 [facility] Comment on above: The validity of the calculated GFR & GFRAA in patients over 70 years has not been determined. Clinical correlation is essential. Serum or plasma low density lipoprotein (LDL) cholesterol measurement (mass/volume)Ordered By: Adri Ambrocio on 08-16-2022 Cholesterol in LDL [Mass/Vol] 141 mg/dL 0-130 [facility] Serum or plasma urea nitroge n measurement (mass/volume)Ordered By: Adri Ambrocio on 08-16-2022 Urea nitrogen [Mass/Vol] 15 mg/dL 7-18 [facility] Thin prep Papanicolaou smear with manual screeningOrdered By: Adri Ambrocio on 08-16-2022 Thin prep Papanicolaou smear with manual screening 21 U/L 15-37 [facility] Thin prep Papanicolaou smear with manual screening 3 5-15 [facility] Whole blood hemoglobin A1c/t otal hemoglobin ratio (mass fraction)Ordered By: Adri Ambrocio on 08-16-2022 HbA1c (Bld) [Mass fraction] 4.9 % 3.8-5.6 [facility] Comment on above: Normal < 5.7 % Predi abetic 5.7 - 6.4 % Diabetic >or= 6.5 % Please note range changes. Vikram 06-29-2018 [facility] HNO ID: [id number] Author: Mammography Coordinator Service: ? Author Type: Physician Type: Letter Filed: 07/02/2018 11:32 PM Note Text: [facility] [address] [id number] June 29, 2018 PID: [id number] Gerri Georges [address] [place] [address] Dear Ms. Georges, We are pleased to inform you that the results of your recent breast imaging exam on 06/29/2018 are normal. Your mammogram demonstrates that you have dense breast tissue, which could hide abnormalities. Dense breast tissue, in and of itself, is a relatively common condition. Therefore, this information is not provided to cause undue concern; rather, it is to raise your awareness and promote discussion with your health care provider regarding the presence of dense breast tissue in addition to other risk factors. Early detection of cancer is very important. We also understand recommendations regarding breast cancer screening are controversial. Please discuss with your primary care provider which strategy is best for you and whether a mammogram is right for you. Your imaging studies and report will be kept on file at [facility] as part of your permanent medical record and are available for your continuing care. Thank you for allowing us to help in meeting your health care needs. Sincerely, Dr. Moran Interpreting Radiologist [facility] (Normal over 40) Normal [facility] SCREENINGon 06-29-2018 [facility] SCREENING * * *Final Report* * * DATE OF EXAM: Jun 29 2018 1:04PM [id number] - [facility] SCREENING / PROCEDURE REASON: multiple diagnoses * * * * Physician Interpretation * * * * RESULT: #[id number] - [facility] SCREENING BILATERAL DIGITAL SCREENING MAMMOGRAM WITH CAD: 06/29/2018 HISTORY: Multiple Diagnoses /Screening Mammogram - patient reports no symptoms. RESULT: TECHNIQUE: The study was acquired using full field digital technology and interpreted from soft copy. Current study was also evaluated with a Computer Aided Detection (CAD). Comparison is made to exam dated: 05/16/2017 mammogram - [facility]. The tissue of both breasts is heterogeneously dense. This may lower the sensitivity of mammography. No significant masses, calcifications, or other findings are seen in either breast. There has been no significant interval change. IMPRESSION: NEGATIVE There is no mammographic evidence of malignancy. A 1 year screening mammogram is recommended. Sachi Moran M.D., mc/karyn:06/29/2018 13:20:05 Spooler Operator(s): RT Maddy(Robert)(M), [facility] letter sent: Normal over 40 Mammogram BI-RADS: 1 Negative Multiple national specialty organizations have released breast cancer screening guidelines for women at average risk for developing breast cancer - guidelines that are based on both evidence and opinion, yet differ on when to start and how often to screen for breast cancer. With representation from Breast Imaging, Internal Medicine, Women's Health, Family Medicine, and Medical/Surgical Oncology, the [facility] has carefully reviewed the data and reached the following consensus: 1) All women should engage in shared decision-making with their providers to decide when to start and how often to screen; 2) All women should have the opportunity to start screening mammography at age 40; 3) For women ages 45-55, we recommend annual screening mammograms; 4) For women ages 55 and over, we support both the transition from an annual to a biennial interval if this aligns more with patient's values and preferences, or continuation with annual screening; 5) All women should discuss with their providers when to stop screening mammograms. Secondary School Teacher: Karyn Transcribe Date/Time: Jun 29 2018 1:04P Dictated by: SACHI HART MD This examination was interpreted and the report reviewed and electronically signed by: SACHI AHRT MD on Jun 29 2018 1:20PM EST [id number] CN Normal [facility] Vital Signs Date Time Vital Sign Value Performing Clinician Faci lity 01-09-2025 17:47-0400 Body temperature 98.2 [degF] Dr. Soledad Nuñez MD Work Phone: [facility] 01-09-2025 17:47-0400 Diastolic blood pressure 72 mm[Hg] Dr. Soledad Nuñez MD Work Phone: [facility] 01-09-2025 17:47-0400 Heart rate 54 /min Dr. Soledad Nuñez MD Work Phone: [facility] 01-09-2025 17:47-0400 Respiratory rate 18 /min Dr. Soledad Nuñez MD Work Phone: [facility] 01-09-2025 17:47-0400 SaO2% (BldA) [Mass fraction] 100 % Dr. Soledad Nuñez MD Work Phone: [facility] 01-09-2025 17:47-0400 Systolic blood pressure 145 mm[Hg] Dr. Soledad Nuñez MD Work Phone: [facility] 01-09-2025 16:19-0400 Body height 172.[address] Soledad Nuñez MD Work Phone: [facility] 01-09-2025 16:19-0400 Body mass index (BMI) [Ratio] 31.1 kg/m2 Dr. Soledad Nuñez MD Work Phone: [facility] 01-09-2025 16:19-0400 Body weight 93.[address] Soledad Nuñez MD Work Phone: [facility] 12-29-2022 11:02-0400 Body temperature 97.1 [degF] DO Adri Lolly Work Phone: [facility] 12-29-2022 11:02-0400 Diastolic blood pressure 68 mm[Hg] DO Adri Lolly Work Phone: [facility] 12-29-2022 11:02-0400 Heart rate 52 /min DO Adri Lolly Work Phone: [facility] 12-29-2022 11:02-0400 Respiratory rate 16 /min DO Adri Lolly Work Phone: [facility] 12-29-2022 11:02-0400 SaO2% (BldA) [Mass fraction] 100 % DO Adri Lolly Work Phone: [facility] 12-29-2022 11:02-0400 Systolic blood pressure 115 mm[Hg] DO Adri Lolly Work Phone: [facility] 12-29-2022 09:32-0400 Body height 172.72 cm DO Adri Lolly Work Phone: [facility] 12-29-2022 09:32-0400 Body mass index (BMI) [Ratio] 29.9 kg/m2 DO Adri Lolly Work Phone: [facility] 12-29-2022 09:32-0400 Body weight 89.3 kg DO Adri Lolly Work Phone: [facility] 11-03-2022 11:29-0400 Body mass index (BMI) [Ratio] 28.1 kg/m2 DO Adri Vaughner Work Phone: [facility] 11-03-2022 11:29-0400 Body weight 83.91 kg DO Adri Almeidanger Work Phone: [facility] Encounters Encounter Date Encounter Type Care Provider Facility Start: 01-09-2025 End: 01-09-2025 Emergency department patient visit Dr. Soledad Nuñez MD Work Phone: -Emergency Department Work Phone: Start: 01-09-2025 End: 01-09-2025 Emergency department patient visit SOLEDAD NUÑEZ [facility] Start: 03-19-2024 End: 03-19-2024 ambulatory Soledad Nuñez Facility:[facility] Start: 02-28-2024 End: 03-04-2024 ambulatory Janneth Dale MD Work Phone: [facility] Start: 03-22-2023 ambulatory Janneth Mann Work Phone: Internal Medicine Main [place] Start: 12-29-2022 Non-patient / Non-visit DO Gurwinderdallas harshad Ambrocio Work Phone: [facility] Start: 12-29-2022 End: 12-29-2022 Admission to same day surgery center DO Adriok Almeidanger Work Phone: [facility] Work Phone: Start: 12-29-2022 End: 12-29-2022 ambulatory DO Adri Azael Lolly Work Phone: [facility] Work Phone: Start: 11-03-2022 Non-patient / Non-visit DO Gurwinderdallas harshad Vaughner Work Phone: [facility] Work Phone: Start: 10-26-2022 End: 06-28-2023 ambulatory [facility] Work Phone: Start: 10-26-2022 End: 10-26-2022 Patient encounter procedure [facility] Work Phone: Start: 08-16-2022 End: 08-16-2022 ambulatory [facility] Work Phone: Start: 08-16-2022 End: 08-16-2022 Patient encounter procedure [facility] Start: 04-07-2022 ambulatory Janneth Mann Work Phone: Internal Medicine Main [place] Start: 06-29-2018 Encounter for genera l adult medical examination without abnormal findings [employer] Start: 06-29-2018 End: 06-29-2018 Patient encounter procedure [facility] Procedures Date Procedure Procedure Detail Performing Clinician Start: 12-29-2022 Colonoscopy DO Adri Ambrocio Work Phone: Start: 10-26-2022 Screening mammography Start: 03-09-2021 Lipid 1996 panel - S donald or Plasma Janneth Dale MD Work Phone: Start: 02-22-2021 Mammography Janneth kaur MD Work Phone: Start: 01-29-2019 History of laser ass isted in situ keratomileusis Hx of LASIK Janneth Dale MD Work Phone: Start: 07-04-2017 Colonoscopy Janneth kaur MD Work Phone: Plan of Treatment Date Care Activity Detail Author Start: 12-20-[address] [facility] Start: 03-09-2026 Lipid 1996 panel - S donald or Plasma Lipid Screening [facility] Start: 03-09-2026 Lipid panel Lipid Screening [facility] Start: 03-09-2026 [address] S[address]EN LIPID SCREEN [facility] Start: 04-30-2025 HPV TESTING HPV TESTING [facility] Start: 04-30-2025 PAP TESTING PAP TESTING [facility] Start: 04-30-2025 Screening for malign ant neoplasm of cervix Cervical Cancer Screening [facility] Start: 01-09-2025 [facility] Start: 03-09-2024 DIABETES SCREEN DIABETES SCREEN [facility] Start: 03-09-2024 Diabetes Screening Diabetes Screenin g [facility] Start: 12-31-2023 Covid-19 Vaccine ( season) Covid-19 Vaccine () [facility] Start: 12-31-2023 Influenza vaccination Influenza Vacc ine (#1) [facility] Start: 12-30-2022 Covid-19 Vaccine () Covid-19 Vaccine () [facility] Start: 12-30-2022 Influenza vaccination Influenza Vacc ine (#1) [facility] Start: 12-29-2022 [place] [facility] Start: 07-04-[address] [facility] Start: 07-04-2022 COLORECTAL CANCER SCREENING COLORECTAL CANCER SCREENING [facility] Start: 07-04-2022 Screening for malign ant neoplasm of colon [facility] Start: 05-01-2022 Depression Assessment Depression Ass essment [facility] Start: 02-22-[address] [facility] Start: 02-22-2022 Screening for malign ant neoplasm of breast Mammogram Screening [facility] Start: 12-30-2021 Influenza vaccination INFLUENZA (#1) [facility] Start: 05-04-2021 COVID-19 VACCINE (4 - Booster for Pfizer series) COVID-19 VACCINE (4 - Booster for Pfizer series) [facility] Start: 05-01-2021 DEPRESSION ASSESSMENT DEPRESSION ASS ESSMENT [facility] Start: 2009 COLOGUARD (FIT-DNA) COLOGUARD (FIT-D NA) [facility] Start: [address] COLONOGRAPHY [facility] Start: 2009 FECAL OCCULT BLOOD FECAL OCCULT BLOO D [facility] Start: 2009 Screening for malign ant neoplasm of colon [facility] Start: 2009 SIGMOIDOSCOPY SIGMOIDOSCOPY [facility] Start: 1982 Anxiety Screening Anxiety Screening [facility] Start: 1982 Depression Screening Depression Scre ening [facility] Start: 1964 HEPATITIS B (1 of 3 - 3-dose series) HEPATITIS B (1 of 3 - 3-dose series) [facility] Start: 1965 Hepatitis B Vaccine (1 of 3 - 3-dose series) Hepatitis B Vaccine (1 of 3 - 3-dose series) [facility] Colonoscopy [facility] End: 03-29-2025 DBT Breast - bilateral screening DORIAN SCREENING W DARIUS Radiology Routine Encounter for screening mammogram for breast cancer 1 Occurrences starting 02/28/2024 until 03/29/2025 [facility] Work Phone: Comment on above: 1 Occurrences starti ng 02/28/2024 until 03/29/2025 End: 05-07-2023 DORIAN SCREENING W DARIUS DORIAN SCREENING W DARIUS Radiology Routine Encounter for screening mammogram for breast cancer 1 Occurrences starting 04/07/2022 until 05/07/2023 [facility] Work Phone: Comment on above: 1 Occurrences starti ng 04/07/2022 until 05/07/2023 End: 04-20-2024 DORIAN SCREENING W DARIUS DORIAN SCREENING W DARIUS Radiology Routine Encounter for screening mammogram for breast cancer 1 Occurrences starting 03/22/2023 until 04/20/2024 [facility] Work Phone: Comment on above: 1 Occurrences starti ng 03/22/2023 until 04/20/2024 Patient Education ED Animal Bite (General) ED Hypertension, To Be Confirmed [facility] Work Phone: Patient referral [facility] Work Phone: Immunizations Immunization Date Immunization Notes Care Provider [facility] 01-09-[address] Lizette Nuñez MD Work Phone: [facility] 01-09-2025 rabies vaccine, for intramuscular injection Dr. Soledad Nuñez MD Work Phone: [facility] 02-12-2022 influenza virus vacc ine, unspecified formulation Janneth Dale MD Work Phone: [facility] 03-01-2021 influenza, injectabl e, quadrivalent, contains preservative Janneth Dale MD Work Phone: [facility] 06-23-2020 zoster vaccine recombinant Janneth Dale MD Work Phone: [facility] Work Phone: 04-06-2020 zoster vaccine recombinant Janneth Dale MD Work Phone: [facility] Work Phone: 12-20-2016 tetanus toxoid, redu joycelyn diphtheria toxoid, and acellular pertussis vaccine, adsorbed Janneth Dale MD Work Phone: [facility] 05-21-2012 influenza virus vacc ine, unspecified formulation Janneth Dale MD Work Phone: [facility] Payers Date Payer Category Payer Unknown [id number] 2024 Self-pay 2024 Unknown [id number] 2014 Unknown [id number] 1964 Unknown [id number] Unknown [id number] Unknown [id number] Social History Date Type Detail Facility Start: 02-11-2013 End: 01-09-2025 Tobacco smoking status MOIS Never smoked tobacco [facility] Start: 02-11-2013 Tobacco use and exposure Smokeless tobacco non-user [facility] Start: 03-09-2021 Alcohol intake Current drinker of alcohol (finding) [facility] Start: 04-04-2020 End: 03-09-[address] [facility] Start: 02-24-2020 History SDOH Alcohol Frequency 4 [facility] Start: 02-24-2020 End: 02-22-2021 History SDOH Alcohol Std Drinks 1 [facility] Start: 02-24-2020 End: 02-22-2021 History SDOH Social Connections Get Together 2 [facility] Start: 02-24-2020 History SDOH Social Connections Living 3 [facility] Start: 02-24-2020 History SDOH Financial 5 [facility] Start: 02-24-[address] [facility] Start: 1965 Sex Assigned At Not on file [facility] Start: 1965 Sex Assigned At Female [facility] Start: 12-27-2022 Tobacco smoking status NHIS Unknown if ever smoked [facility] Start: 02-24-2020 End: 04-04-2020 Social connection and isolation panel [facility] Do you belong to any clubs or organizations such as roman catholic groups, unions, fraternal or athletic groups, or school groups? No [facility] Are you now , , , , never or living with a partner? [facility] How often to you hav e a drink containing alcohol? 2-[address] [facility] How many standard dr inks containing alcohol do you have on a typical day? [address] [facility] How often do you hav e 6 or more drinks on 1 occasion? Never [facility] How hard is it for y ou to pay for the very basics like food, housing, medical care, and heating Not hard at all [facility] Do you feel stress - tense, restless, nervous, or anxious, or unable to sleep at night because your mind is troubled all the time - these days [OSQ] To some extent [facility] (I/We) worried christine er (my/our) food would run out before (I/we) got money to buy more. Never true [facility] Start: 02-24-2020 Gender identity Identifies as female gender (finding) [facility] Start: 02-24-2020 Sexual orientation Heterosexual (finding) [facility] Goals Date Patient Goal Desired Activity /State Mental Status Date Assessment Result Facility 12-29-2022 Cognitive function Level Of Cons ciousness Follows Commands;Drowsy [facility] Work Phone: 12-29-2022 Cognitive function Voice/Name [facility] Work Phone: Clinical Notes 01-25-2019 to 01-09-2025 Note Date & Type Note Facility 01-09-2025 Discharge summary [facility] 01-09-2025 Discharge summary Note Date/Time January 09, 2025 4:42pm [facility] Medical Records Department [address] [place] [address] Emergency Department Summary 01/09/25 MR#: [id number] Acct: [id number] Name: GERRI GEORGES Rep #:[id number] : 1965 59 From: Toribio Huntley MD PCP: Dr. Soledad Nuñez MD Status:GA E ER Location: ED HPI History of Present Illness Chief Complaint: Bite Detail of Chief Complaint: Bite volar surface right arm, awoke with bat in bedroom Informant: patient Onset/Context/Timing Onset: Weeks (01/01/2025) Mechanism/Context: Puncture Wound (2 puncture wounds mid right forearm volar surface) Location of pain/injuries: Right forearm Location: Forearm both looser Current Severity: Evidence of bite rizwana with no obvious cellulitis or abscess Maximum Severity: Not applicable Worsened by: Nothing Relieved by: Nothing Associated Symptoms Associated Symptoms: Negative for Parasthesias, Weakness, Loss of function, Inability to ambulate, Loss of consciousness or Amnesia Narrative Narrative: Patient is a healthy 59-year-old vitamins who presents because she has a bite tothe volar surface of her right forearm. This occurred a week ago. She awoke that morning with a bat in her room. Daughter who is a bat in is concerned thisrepresents a bat bite. Regardless she needs to be vaccinated since she awoke with a bat in her bedroom. She has no fever, chills night sweats. She denies paresthesia, anesthesia or motor weakness. She has no symptoms. Prior similar symptoms: No Recent Illness/Hospitalization: No PFSH PFSH Medical History Wears glasses Post-menopausal Alcohol use Arthritis Non-smoker Achilles tendinitis Hx of vaginal after Hx of colonic polyp Home Medications ?Medication ?Instructions ?Recorded ?Last Taken ?Type multivitamin 1 tab PO DAILY 11/03/2211/30 History cholecalciferol (vitamin D3) 25 25 mcg PO DAILY Unknown History mcg (1,000 unit) capsule (Vitamin D3) Allergy/AdvReac Type Severity Reaction Status Date / Time No Known Allergies Allergy Verified 01/09/25 16:19 Surgical History Hx of section Hx of colonoscopy Social History Smoking Status: Never smoker ROS ROS ED Constitutional Constitutional ED: Denies chills, fever(s), subjective or sweats Eyes Eyes: Denies change in vision Gastrointestinal Gastrointestinal: Denies nausea or vomiting Neurologic Neurologic: Denies paresthesias or weakness EXAM Physical Exam Const Vital Signs: 01/09/25 16:19 Temperature 97.8 F Temperature Source Temporal Pulse Rate 68 Respiratory Rate 16 Blood Pressure 141/75 H Blood Pressure Mean 97 Pulse Ox 100 Oxygen Delivery Method Room Air Positive well nourished and well developed General Appearance ED: well developed and NAD HEENT atraumatic Eyes PERRL Cardio regular rhythm and S1 normal heart sound Extremity full ROM; Negative for normal to inspection Extremity Narrative: Axillary, median, radial and ulnar function intact. Sensation is normal. Patient has 2 puncture wounds volar surface of right forearm. Concerned this may represent a bat bite. Will order rabies immunoglobulin and vaccine. Also will send patient home with order for outpatient vaccination complete series. Neuro oriented x3 and CN's II-XII intact bilaterally Sensorium / Orientation: alert Psych mental status grossly normal and thought process normal Skin No no wounds MDM MDM MDM Narrative Medical decision making narrative: Since patient has puncture wound daughter who is a right of way maintenance supervisor is concerned this puncture was consistent with bat bite and the fact that she awoke with a bat in her bedroom will vaccinate for rabies. No testing is indicated. Discharge Plan Triage Chief Complaint: Bite ED Provider: Toribio Huntley Dx/Rx/DC Orders Clinical Impression: Bat bite wound, Elevated blood-pressure reading without diagnosis of hypertension Instructions: ED Animal Bite (General), ED Hypertension, To Be Confirmed Prescriptions: No Action multivitamin Tablet 1 tab PO DAILY cholecalciferol (vitamin D3) [Vitamin D3] 25 mcg (1,000 unit) capsule 25 mcg PO DAILY Primary Care Provider: Soledad Nuñez Referrals: Soledad Nuñez MD [Primary Care Provider] - 1-2 Weeks Print Language: Maori Disposition Disposition: Home, Self Care What to do if you have Problems For any increased pain, shortness of breath, bleeding, nausea or vomiting, chestpain, or any unexpected problems, contact your Primary Care Provider. Call [facility] ([phone]) or report to the closest Emergency Room. Call 911 if necessary. 01/09/25 1642 <Electronically signed by Toribio Huntley MD> Cosigner Signature (if applicable): CC: Dr. Soledad Nuñez MD ~ Signed [facility] Work Phone: [phone]) 802-296310-30-2024 NotePatient Outreach (INTMMN) GERRI GEORGES ([id number]) 1965 F Date Time Provider Department 02/28/24 JANNETH DALE INTTAMIKAN During your visit today, we recorded the following information about you: Allergies As of Date: 02/28/2024 (No Known Allergies) Date Reviewed: 03/09/2021 Reviewed by: Marisela Hernandez OD - Fully Assessed Visit Diagnosis:Encounter for screening mammogram for breast cancer [Z12.31] Order(s):DORIAN LEAVITT W DARIUS [[id number]] Order #: [id number] FUTURE Prescriptions as of 03/04/2024 - cholecalciferol, Vitamin D3, (VITAMIN D3) 1,250 mcg (50,000 unit) cap capsule Take 1 capsule by mouth one time a week. - [place]-3 Fatty Acids-Vitamin E (FISH OIL) 1,000 mg ORAL Cap Take 1 capsule by mouth twice daily. - MULTIVITAMIN TAB Take one(1) tablet daily. 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] 01/29/2019 Hx of LASIK [Z98.890] 01/29/2019 Encounter Status:Closed by RUTH VARNERUSER on 03/04/24[facility] 03-22-2023 NotePatient Outreach (INTMMN) GERRI GEORGES ([id number]) 1965 F Date Time Provider Department 03/22/23 JANNETH DALE During your visit today, we recorded the following information about you: Allergies As of Date: 03/22/2023 (No Known Allergies) Date Reviewed: 03/09/2021 Reviewed by: Marisela Hernandez OD - Fully Assessed Visit Diagnosis:Encounter for screening mammogram for breast cancer [Z12.31] Order(s):DORIAN SCREENING W DARIUS [[id number]] Order #: [id number] FUTURE Prescriptions as of 03/27/2023 - cholecalciferol, Vitamin D3, (VITAMIN D3) 1,250 mcg (50,000 unit) cap capsule Take 1 capsule by mouth one time a week. - [place]-3 Fatty Acids-Vitamin E (FISH OIL) 1,000 mg ORAL Cap Take 1 capsule by mouth twice daily. - MULTIVITAMIN TAB Take one(1) tablet daily. 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 History of Past illness Narrative* Problem Noted Date Diagnosed Date Resolved Date Metrorrhagia 01/25/2019 documented as of this encounter (statuses as of 03/27/2023) [facility] Diagnosis Encounter for screening mammogram for breast cancer [facility] assessment information [facility] Work Phone: Evaluation note* Diagnosis Onset Date Resolution Status Encounter for screening for malignant neoplasm of colo n acute [facility] Work Phone: evaluation note* Diagnosis Encounter for screening mammogram for breast cancer [facility] Author Cheko Friend [facility] December 29, 2022 10:15am Note Date/Time December 29, 2022 10 :15am [facility] Medical Records Department [address] [place] [id number] History & Physical Exam 12/29/22 1013 MR#: [id number] Acct: [id number] Name: GERRI GEORGES Rep #:[id number] : 1965 57 From: Cheko Kirby DO PCP: Adri Ambrocio DO Status:REG S DC Location: [place] [id number] HPI - General General Date of Admission: 12/29/22 Date of Service: 12/29/22 Chief Complaint: Screening colonoscopy HPI Narrative GERRI GEORGES, is a 57 F who presents today for a screening colonoscopy. She had a colonoscopy approximately 5 years ago. It was uneventful. She had some small adenomatous polyps that were removed during that colonoscopy. She does not have any problems with bleeding. She has no chest pain or short of breath. She has no nausea, vomiting or diarrhea. Overall she is in fairly good health. She does not take any medicines on a daily basis. [facility] Medical History (Updated 12/27/22 @ 09:33 by Lore Roca) Achilles tendinitis Alcohol use Arthritis Hx of colonic polyp Hx of vaginal after Non-smoker Post-menopausal Wears glasses Home Medications multivitamin 1 tab PO DAILY 11/03/22 [History Last Taken 12/26/22] cholecalciferol (vitamin D3) 25 mcg (1,000 unit) capsule (Vitamin D3) 25 mcg PO DAILY 12/27/22 [History Last Taken Unknown] Allergy/AdvReac Type Severity Reaction Status Date / Time No Known Allergies Allergy Verified 12/27/22 09:27 Surgical History (Updated 12/27/22 @ 09:33 by Lore Roca) Hx of section Hx of colonoscopy Social History (Updated 11/03/22 @ 11:25 by Angie Olvera) Smoking Status: Never smoker ROS Review of Systems ROS Unobtainable: other Constitutional Constitutional: Denies fatigue, fever(s), poor appetite, weight gain or weight loss ENT HEENT: Denies mouth lesions Cardiovascular Cardiovascular: Denies abdominal bloating, abdominal edema or abdominal pain Respiratory/Chest Respiratory/Chest: Denies change in mental status, change in phlegm color, chestcongestion or chest tightness Gastrointestinal Gastrointestinal: Denies belching, bloating, change in bowel habits, change in stool character, chewing difficulty, coffee ground emesis, constipation, cramping, diarrhea, dyspepsia, dysphagia, early satiety, excessive flatus, fecalincontinence, heartburn, hematemesis, hematochezia, hemorrhoids, loose stools, melena, nausea, odynophagia, rectal bleeding, tenesmus, vomiting or weight changes Genitourinary Genitourinary: Denies abdominal discomfort, burning urination or itching Musculoskeletal Musculoskeletal: Reports as per HPI; Denies muscle weakness or myalgias Integumentary Integumentary: Denies jaundice Neurologic Neurologic: Denies lack of coordination or weakness Psychiatric Psychiatric: Denies confusion, depression, memory loss, mood swings, paranoia orsuicidal ideation Endocrine Endocrinology: Denies systems reviewed and no addt'l complaints, except as documented Hematologic/Lymphatic Hematologic/Lymphatic: Denies anemia, easy bleeding, easy bruising or lymphadenopathy Allergic/Immunologic Allergic/Immunologic: Denies systems reviewed and no addt'l complaints, except as documented Vital Signs Vital Signs Vital Signs: 12/29/22 09:32 12/29/22 09:32 Temperature 97.4 F L Temperature Source Temporal Pulse Rate 59 L Respiratory Rate 16 Respiratory Pattern Normal Blood Pressure 124/89 H Blood Pressure Mean 100 Blood Pressure Position Sitting Blood Pressure Location Right Arm Pulse Ox 100 Oxygen Delivery Method Room Air Weight Weight: 196 lb 13.965 oz Body Mass Index (BMI) 29.9 Physical Exam Const alert, oriented x3, no apparent distress, healthy appearing and well nourished General Appearance: cooperative, comfortable, well kempt and well developed Orientation / Consciousness: awake and oriented to person HEENT Head and Scalp: normocephalic and atraumatic Face and Sinus: normal facial exam Mouth: oral and palatal mucosa normal Eyes General Eye: normal appearance of both eyes Neck full ROM Lymph Lymphatic: no lymphadenopathy noted Chest inspection of chest normal Resp normal respiratory effort and no use of accessory muscles Cardio regular rate and regular rhythm GI normal to inspection, nondistended, normoactive bowel sounds, soft to palpation,non-tender, non-distended and no masses Auscultation: normoactive bowel sounds Palpation: soft Percussion: normal to percussion Rectal Exam: visual inspection normal and normal sphincter tone no CVA tenderness Back/Spine no CVA tenderness and normal ROM Extremity normal to inspection Peripheral Pulses: Yes pulses 2+ throughout Skin no rashes or lesions noted General Skin Exam: no breakdown, elasticity normal and turgor normal Neuro oriented x3 Motor Exam: strength 5/5 throughout Psych mental status grossly normal Appearance: grossly normal Attitude: calm Activity / Motor Behavior: appropriate eye contact Speech: normal speech Thought Process: normal thought process Thought Content: normal thought content Attention / Concentration: attention grossly intact Memory / Cognition: memory grossly intact Insight: insight good Judgement: judgement good Assessment & Plan Assessment/Plan (1) Encounter for screening for malignant neoplasm of colon: PLAN: She was explained alternatives, risk, the including not withstanding bleeding, infection, sepsis, perforation, need for emergent surgery and . She will have an ASA of 2. 12/29/22 1015 <Electronically signed by Cheko Kirby DO> Cosigner Signature (if applicable): CC: Adri Ambrocio DO; Cheko Kirby DO~ Signed [facility] Work Phone: Reason for referral (narrative)* Diagnostic Procedure Only (Routine) - Pending Review Specialty Diagnoses / Procedures Referred By Kayce lara Referred To Contact [facility] Diagnoses Encounter for screening mammogram for breast cancer Procedures DORIAN SCREENING W DARIUS SCREENING DIGITAL BREAST TOMOSYNTHESIS BI SCREENING MAMMOGRAPHY BI 2-VIEW BREAST INC Janneth Flores MD [address] [place] [address] [facility] [address] [place] [address] Referral ID Status Reason Start Date Expiration Date Visits Requested Visits Authorized [id number] Pending Review Auto-Generat ed Referral 04/07/2022 05/07/2023 1 1 [facility] for referral (narrative)* Diagnostic Procedure Only (Routine) - Pending Review Specialty Diagnoses / Procedures Referred By Kayce lara Referred To Contact [facility] Diagnoses Encounter for screening mammogram for breast cancer Procedures DORIAN SCREENING W DARIUS SCREENING DIGITAL BREAST TOMOSYNTHESIS BI SCREENING MAMMOGRAPHY BI 2-VIEW BREAST INC Janneth Flores MD [address] [place] [address] [facility] [address] [place] [address] Referral ID Status Reason Start Date Expiration Date Visits Requested Visits Authorized [id number] Pending Review Auto-Generat ed Referral 3 04/20/2024 1 1 [facility] for referral (narrative)* Diagnostic Procedure Only (Routine) - New Request Specialty Diagnoses / Procedures Referred By Kayce lara Referred To Contact [facility] Diagnoses Encounter for screening mammogram for breast cancer Procedures DORIAN SCREENING W DARIUS SCREENING DIGITAL BREAST TOMOSYNTHESIS BI SCREENING MAMMOGRAPHY BI 2-VIEW BREAST INC Janneth Flores MD [address] [place] [address] [facility] [address] [place] [address] Referral ID Status Reason Start Date Expiration Date Visits Requested Visits Authorized [id number] New Request Auto-Generat ed Referral 4 03/29/2025 1 1 [facility] for referral (narrative)No reason for referral information availableWCincinnati [facility] Work Phone: Summary Purpose Family History No Family History Records FoundNo Family History Records FoundNo Family History Records FoundNo Family History Records Found Advance Directives No Advanced Directives Records Found Advance Directive Response Recorded Date/ Time Living Will No December 27 3 9:33am Power of Form Tamper No December 27 023 9:33am Advance Directive Response Recorded Date/ Time Do you have a Healthcare Power of Form Tamper? Yes January 09, 2025 4:30pm Chief Complaint and Reason for Visit Chief Complaint SCREENING Chief Complaint SCREENING Amb Documentation Reason for Visit Encounter for screen ing for malignant neoplasm of colon Chief Complaint Admit Date BITE January 09, 2025 4:17pm Additional Source Comments INFORMATION SOURCE (unrecogn ized section and content) DATE CREATED AUTHOR 07/04/2018 [facility] DATE CREATED AUTHOR AUTHOR'S ORGANIZ ATION 03/04/2024 [facility] DATE CREATED AUTHOR AUTHOR'S ORGANIZ ATION 01/12/2025 [facility] DATE CREATED AUTHOR AUTHOR'S ORGANIZ ATION 01/12/2025 [facility] Source Comments (unrecognize d section and content) In the event this informatio n is protected by the Federal Confidentiality of Alcohol and Drug Abuse Patient Records regulations: The Federal rules restrict any use of the information to criminally investigate or prosecute any alcohol or drug abuse patient.[facility] the event this information is protected by the Federal Confidentiality of Alcohol and Drug Abuse Patient Records regulations: The Federal rules restrict any use of the information to criminally investigate or prosecute any alcohol or drug abuse patient.[facility] Hospital[facility] the event this information is protected by the Federal Confidentiality of Alcohol and Drug Abuse Patient Records regulations: The Federal rules restrict any use of the information to criminally investigate or prosecute any alcohol or drug abuse patient.[facility] Care Teams (unrecognized sec tion and content) Team Status: Active Member Role Status Dates Adri Ambrocio , DO Primary Care Provider Active Team Status: Active Member Role Status Dates Ardi Ambrocio , DO Primary Care Provider Active [facility] Attending Provider Active Team Status: Active Member Role Status Dates Adri Ambrocio , DO Primary Care Provider, Referring Provider Active Dr. Cheko Kirby , DO Attending Provider, Other Prov ider Active Team Status: Inactive Member Role Status Dates Adri Ambrocio , DO Primary Care Provider, Attending Provider Active Team Status: Inactive Member Role Status Dates Adri Ambrocio , DO Primary Care Provider, Referring Provider Active Dr. Cheko Kirby , DO Attending Provider Active Director [employer] Relationship Specialty Start Date End Date Janneth Dale MD [address] [place] [address] PCP - General Internal Medicine 02/25/20 Director [employer] Relationship Specialty Start Date End Date Janneth Dale MD [address] [place] [address] PCP - General Internal Medicine 02/25/20 Team Status: Active Member Role/Relationship Status Dates Dr. Soledad Nuñez MD Primary Care Provider Active Team Status: Inactive Member Role/Relationship Status Dates Dr. Soledad Nuñez MD Primary Care Provider Active Start: January 09, 2025 End: January 09, 2025 Dr. Toribio Huntley MD Emergency Provider Active Sta rt: January 09, 2025 End: January 09, 2025 Goals (unrecognized section and content) Goals may be documented in a n alternate sectionGoals may be documented in an alternate sectionGoals may be documented in an alternate section FOR RECORDS PERTAINING TO PATIENTS WHO ARE OR HAVE BEEN ENROLLED IN A CHEMICAL DEPENDENCY/SUBSTANCEABUSE PROGRAM, SOME INFORMATION MAY BE OMITTED. This clinical summary was aggregated from multiple sources. Caution should be exercised in using it in the provision of clinical care. This summary normalizes information from multiple sources, and as a consequence, information in this document may materially change the coding, format and clinical context of patient data. In addition, data may be omitted in some cases. CLINICAL DECISIONS SHOULD BE BASED ON THE PRIMARY CLINICAL RECORDS. [employer] provides no warranty or guarantee of the accuracy or completeness of information in this document.
--- OUTSIDE RECORDS SUMMARY | 2025-01-12 18:38 | XMS RPT_ITS | CCD ---
Author Organization [facility] Care Team Providers Care Associate Director Finance Name Role Phone MABLEANJELICA SUGAR SOLEDAD Referring Unavailable Janneth Dale MD Primary Care Provider [phone] DO Adri Ambrocio Primary Care Provider [phone] Angie Olvera Attending Provider Unavailable DO Adri Ambrocio Referring Provider Friend, Dr. Still Attending Provider Friend, Dr. Still Other Provider [phone] Janneth Dale MD Primary Care Provider Dr. Soledad Nuñez MD Primary Care Provider Dr. Toribio Huntley MD Emergency Provider SOLEDAD NUÑEZ Referring Unavailable SOLEDAD NUÑEZ Consulting Unavailable DESTINY PORTER DO Attending Unavailable DESTINY PORTER DO Primary Care Unavailable DESTINY PORTER DO Admitting Unavailable PROVIDER, UNKNOWN Consulting Unavailable Soledad Nuñez Attending Unavailable Soledad Nuñez Primary Care Unavailable Toribio Huntley Attending Unavailable Soledad Nuñez Primary Care Unavailable Medications Current Medications Medication Drug Class(es) Dates Sig (Normalized) Sig (Original) cholecalciferol 0.025 mg oral capsule (6 sources) Vitamin D Start: 12-27-2022 take 1 capsule by mouth once daily Cholecalciferol (Vitamin D3) (Vitamin D3) 25 mcg (1,000 unit) capsule Active 25 ug PO DAILY December 27, 2022 12:00am Start: 05-07-2020 take 1 capsule by [facility] every week cholecalciferol, Vitamin D3, [...] Take one(1) tablet d aily. Multivitamin tablet (2 sources) Start: 3 Multivitamin tablet Active 1 {tbl} PO DAILY November 03, 2022 12:00am Revelo-3 Fatty Acids-Vitamin E (FISH OIL) 1,000 mg ORAL Cap (3 sources) Start: 1 take 1 capsule by mouth twice daily Revelo-3 Fatty Acids-Vitamin E (FISH OIL) 1,000 mg ORAL Cap Take 1 capsule by mouth twice daily. 10/20/2010 Active Start: 10-20-2010 take 1 capsule by mo uth twice daily Revelo-3 Fatty Acids-Vitamin E (FISH OIL) 1,000 mg ORAL Cap Take 1 capsule by mouth twice daily. 0 10/20/2010 Active Comment on above: Take 1 capsule by mo uth twice daily. Problems Active Problems Problem Classification Problem Date Documented Date Episodic/Chronic Disorders of lipid metabolism (4 sources) Mixed hyperlipidemia; Translations: [Mixed hyperlipidemia] Onset: 01-25-2019 01-25-2019 Chronic E Codes: Natural/environment (2 sources) Mammal bite wound; Translations: [Bitten by other mammals, initial encounter] 01-09-2025 Episodic Joint disorders and dislocations; trauma-related (3 sources) Patellofemoral stress syndrome; Translations: [Patellofemoral disorders, unspecified knee] Onset: 01-11-2012 01-25-2019 Chronic Other circulatory disease (2 sources) Elevated blood-pressure reading without diagnosis of hypertension; Translations: [Elevated blood-pressure reading, without diagnosis of hypertension] 01-09-2025 Episodic Other screening for suspected conditions (not mental disorders or infectious disease) (8 sources) Encounter for other screening for malignant [...] DETAIL on 01-09-2025 ED MED ADMINISTRATION DETAIL Pre Sales Architect - GERRI GEORGES : 1965, , Medication Administration Record [address] [address] [id number] 01/09/2025 Patient: GERRI GEORGES Sex: Female : [...] patient including reason for taking this medication, Tamia Benítez R.N. tab (NOW x1) signs of [...] mL (NOW x1) 1 of 1 Normal [facility] ED NURSES CLINICAL NOTEon ED NURSES CLINICAL NOTE Nurse Narrative - GERRI GEORGES, : 1965, , Nurse Clinical Narrative [address] [address] [id number] 01/09/2025 14:31:00 Patient: GERRI GEORGES Sex: Female : 1965 Age: 59y Disposition: Discharge to [facility]/Invalid Disposition Decision Time: 15:26 01/09/2025 Departure Time: [...] Reviewed referrals (Patient is to go to [place] ED for rabies vaccination). Patient verbalized understanding. Written instructions provided in Sao Tomean. The patient was discharged home and accompanied by spouse. The patient left ambulatory and via private vehicle. Spouse driving. -- 15:50 01/09/25 EDT Tamia Benítez R.N. (Electronically signed by Tamia Benítez R.N. 01/09/25 15:53:05 EDT) Generated by [facility] 3 of 3 [facility] ED ORDER SHEET (CPOE ONLY)on 01-09-2025 ED ORDER SHEET (CPOE ONLY) Order Sheet - GERRI GEORGES, : 1965, , Order Sheet [address] [address] [id number] 01/09/2025 Patient: GERRI GEORGES Sex: Female : [...] (01/09/2025 19:33 EDT)] 2 of 2 Normal [facility] ED PHYSICIAN CLINICAL REPORT on 01-09-2025 ED PHYSICIAN CLINICAL REPORT Narrative - GERRI GEORGES, : 1965, , Physician Clinical Narrative [address] [address] [id number] 01/09/2025 14:31:00 Patient: GERRI GEORGES Sex: Female [...] do not carry the rabies vaccine here. [place] [facility] does carry it and so does the [facility] department. But not the [facility] department. I advised patient to go to [place] [facility]. But they can try following with the health deparment in [place] today if they wish but I told her we need to get the vaccine series started TODAY. So wherever place can get things going today. I told her I felt the ER in [place] is a better choice because they are [...] consistent with outpatient treatment. Go directly to [facility] ER now to get the rabies vaccine. CLINICAL IMPRESSION Multiple superficial bat bites to the right forearm. DISCHARGE INSTRUCTIONS (Go directly to [facility] for the rabies series of shots now. We don't have the rabies vaccine here. [facility] in [place], [place] also has the rabies vaccine and they are open till 4:30 pm but the ER in [place] might be more reliable palce to go. Take medication as prescribed.). Warnings: GENERAL WARNINGS: Return or contact your physician immediately if your condition worsens or changes unexpectedly, if not improvin (more content not included)... Normal [facility] ED [facility] 1965, , [address] [place] [address] [id number] 01/09/2025 Patient: GERRI GEORGES Sex: Female : 1965 Age: 59y Item Professional Category Description Facility Code Code Quantity Fee Total Nurse/E/M EMERGENCY 112262 1 $0.00 $0.00 DEPARTMENT VISIT MODERATE SEVERITY (81304) Grand Total $0.00 Providers David Lopez D.O. Chief Complaint BAT BITE. Principal Diagnosis Multiple superficial bat bites to the right forearm. ICD-10 Codes 1 of 2 GERRI Lu, : 1965, , S50.871A: Other superficial bite of right forearm, initial encounter 2 of 2 Normal [facility] ED VISIT SUMMARYon ED VISIT SUMMARY Visit Overview - GERRI GEORGES, : 1965, , Visit [address] [place] [address] [id number] 01/09/2025 Patient: GERRI GEORGES Sex: Female : [...] tablet 1 of 3 Visit David - GRERI GEORGES, : 1965, , PAST MEDICAL HISTORY [...] THE RIGHT FOREARM 3 of 3 Normal [facility] ED VITALS FLOW SHEETon 01-09 ED VITALS FLOW SHEET Vitals - GERRI GEORGES, : 1965, , Vital Sign Flow Sheet [address] [address] [id number] 01/09/2025 Patient: GERRI GEORGES Sex: Female : 1965 Age: 59y Measurements Wt: 83.9 kg, Ht/Gerber: 68.0 in, BMI: 28.13 Measured Time BP MAP HR RR O2Sat ETCO2 Temp Pain GCS RTS 15:33 01/09/2025 141/74 96 66 15 96% RA 0 14:37 01/09/2025 151/71 98 66 18 99% 97.9 F 0 1 of 1 Normal [facility] Emergency Department Summary on 01-09-2025 Emergency Department Summary [facility] Medical Records Department [address] [place] [address] Emergency Department Summary 01/09/25 MR#: [id number] Acct: [id number] Name: GERRI GEORGES Rep #: [id number] : 1965 59 From: Toribio Huntley MD [...] has puncture wound daughter who is a cinema or theatre manager is concerned this puncture was consistent with [...] Care Provider] - 1-2 Weeks Print Language: S[place] T[place]an Disposition Disposition: Home, Self Care What to do if you have Problems For any increased pain, shortness of breath, bleeding, nausea or vomiting, chest pain, or any unexpected problems, contact your Primary Care Provider. Call [facility] ([phone]) or report to the closest Emergency Room. Ca (more content not included)... Normal [facility] Comprehensive Metabolic Prof alvaro 03-19-2024 Albumin [Mass/Vol] 4.1 g/dL Normal 3.2-5.0 [facility] Comment on above: Order Comment: Order Date: 03/19/24 Order Info: [id number] - CMP Order Info: [id number] - LIPID Performed By: #### L 506.1000, L500.4100, L500.4050 #### [facility] [address] [place], [address] Albumin/Globulin [Mass ratio] 1.1 {ratio} Normal 0.9-2.4 [facility] Comment on above: Order Comment: Order Date: 03/19/24 Order Info: 0786- - CMP Order Info: [id number] - LIPID Performed By: #### L 506.1000, L500.4100, L500.4050 #### [facility] [address] [place], [address] ALK P 120 U/L High 45-117 [facility] Comment on above: Order Comment: Order Date: 03/19/24 Order Info: 785- - CMP Order Info: [id number] - LIPID Performed By: #### L 506.1000, L500.4100, L500.4050 #### [facility] [address] [place], [address] ALT [Catalytic activity/Vol] 25 U/L Normal 13-56 [facility] Comment on above: Order Comment: Order Date: 03/19/24 Order Info: 0786- - CMP Order Info: [id number] - LIPID Performed By: #### L 506.1000, L500.4100, L500.4050 #### [facility] [address] [place], [address] AST [Catalytic activity/Vol] 20 U/L Normal 15-37 [facility] Comment on above: Order Comment: Order Date: 03/19/24 Order Info: 0786- - CMP Order Info: [id number] - LIPID Performed By: #### L 506.1000, L500.4100, L500.4050 #### [facility] [address] [place], [address] Bilirubin [Mass/Vol] 0.60 mg/dL Normal 0.20-1.00 [facility] Comment on above: Order Comment: Order Date: 03/19/24 Order Info: [id number] - CMP Order Info: [id number] - LIPID Result Comment: For patients on eltrombopag therapy, use of Dimension Fishtail TBIL is not recommended. Performed By: #### L 506.1000, L500.4100, L500.4050 #### [facility] [address] [place], [address] BUN/CRE 19.0 RATIO Normal 10-20 [facility] Comment on above: Order Comment: Order Date: 03/19/24 Order Info: 07-1 - CMP Order Info: [id number] - LIPID Performed By: #### L 506.1000, L500.4100, L500.4050 #### [facility] [address] [place], [address] CA,Total 10.1 mg/dL Normal 8.5-10.1 [facility] Comment on above: Order Comment: Order Date: 03/19/24 Order Info: 785- - CMP Order Info: [id number] - LIPID Performed By: #### L 506.1000, L500.4100, L500.4050 #### [facility] [address] [place], [address] Chloride [Moles/Vol] 105 mmol/L Normal 98-107 [facility] Comment on above: Order Comment: Order Date: 03/19/24 Order Info: [id number] - CMP Order Info: [id number] - LIPID Performed By: #### L 506.1000, L500.4100, L500.4050 #### [facility] [address] [place], [address] CO2 [Moles/Vol] 26.0 mmol/L Normal 21.0-32.0 [facility] Comment on above: Order Comment: Order Date: 03/19/24 Order Info: 0786 - CMP Order Info: [id number] - LIPID Performed By: #### L 506.1000, L500.4100, L500.4050 #### [facility] [address] [place], [address] Creatinine [Mass/Vol] 0.90 mg/dL Normal 0.55-1.02 [facility] Comment on above: Order Comment: Order Date: 03/19/24 Order Info: [id number] - CMP Order Info: [id number] - LIPID Result Comment: The validity of the calculated GFR GFRAA in patients over 70 years has not been determined. Clinical correlation is essential. Performed By: #### L 506.1000, L500.4100, L500.4050 #### [facility] [address] [place], [address] EST GFR - AA 83 mL/min Normal >60 [facility] Comment on above: Order Comment: Order Date: 03/19/24 Order Info: [id number] - CMP Order Info: [id number] - LIPID Result Comment: Afri can Ghanaian GFR Calc Performed By: #### L 506.1000, L500.4100, L500.4050 #### [facility] [address] [place], [address] GAP 6 Normal 5-15 [facility] Comment on above: Order Comment: Order Date: 03/19/24 Order Info: [id number] - CMP Order Info: [id number] - LIPID Performed By: #### L 506.1000, L500.4100, L500.4050 #### [facility] [address] [place], [address] GFR/1.73 sq M.predicted among non-blacks MDRD (S/P/Bld) [Vol rate/Area] 68 mL/min/{1.73_m2} Normal >60 [facility] Comment on above: Order Comment: Order Date: 03/19/24 Order Info: [id number] - CMP Order Info: [id number] - LIPID Result Comment: Non- GFR Calc Performed By: #### L 506.1000, L500.4100, L500.4050 #### [facility] [address] [place], [address] Globulin (S) [Mass/Vol] 3.6 g/dL Normal 2.2-4.2 [facility] Comment on above: Order Comment: Order Date: 03/19/24 Order Info: [id number] - CMP Order Info: [id number] - LIPID Performed By: #### L 506.1000, L500.4100, L500.4050 #### [facility] [address] [place], [address] Glucose [Mass/Vol] 96 mg/dL Normal 74-106 [facility] Comment on above: Order Comment: Order Date: 03/19/24 Order Info: [id number] - CMP Order Info: [id number] - LIPID Performed By: #### L 506.1000, L500.4100, L500.4050 #### [facility] [address] [place], [address] Potassium [Moles/Vol] 4.2 mmol/L Normal 3.5-5.1 [facility] Comment on above: Order Comment: Order Date: 03/19/24 Order Info: 07- - CMP Order Info: [id number] - LIPID Performed By: #### L 506.1000, L500.4100, L500.4050 #### [facility] [address] [place], [address] Sodium [Moles/Vol] 136 mmol/L Normal 136-145 [facility] Comment on above: Order Comment: Order Date: 03/19/24 Order Info: 0786- - CMP Order Info: [id number] - LIPID Performed By: #### L 506.1000, L500.4100, L500.4050 #### [facility] [address] [place], [address] T PROT 7.7 g/dL Normal 6.4-8.2 [facility] Comment on above: Order Comment: Order Date: 03/19/24 Order Info: [id number] - CMP Order Info: [id number] - LIPID Performed By: #### L 506.1000, L500.4100, L500.4050 #### [facility] [address] [place], [address] Urea nitrogen [Mass/Vol] 17 mg/dL Normal 7-18 [facility] Comment on above: Order Comment: Order Date: 03/19/24 Order Info: [id number] - CMP Order Info: [id number] - LIPID Performed By: #### L 506.1000, L500.4100, L500.4050 #### [facility] [address] [place], [address] Lipid Profileon 03-19-2024 Cholesterol [Mass/Vol] 249 mg/dL High 200 [facility] Comment on above: Order Comment: Order Date: 03/19/24 Order Info: 0786 - CMP Order Info: [id number] - LIPID Result Comment: <200 mg/dL Desirable 200-240 mg/dL Borderline >240 mg/dL High Risk Performed By: #### L 506.1000, L500.4100, L500.4050 #### [facility] [address] [place], [address] Cholesterol in HDL [Mass/Vol] 107 mg/dL Normal [facility] Comment on above: Order Comment: Order Date: 03/19/24 Order Info: [id number] - CMP Order Info: [id number] - LIPID Result Comment: The drugs N-Acetylcysteine and Metamizole may falsely depress this assay. Reference Range HDL <40 mg/dL Low HDL Cholesterol HDL >or= 60 mg/dL High HDL Cholesterol Performed By: #### L 506.1000, L500.4100, L500.4050 #### [facility] [address] [place], [address] Cholesterol in LDL [Mass/Vol] 126 mg/dL Normal 0-130 [facility] Comment on above: Order Comment: Order Date: 03/19/24 Order Info: [id number] - CMP Order Info: [id number] - LIPID Performed By: #### L 506.1000, L500.4100, L500.4050 #### [facility] [address] [place], [place], [address] Cholesterol in VLDL [Mass/Vol] 16 mg/dL Normal 5-40 [facility] Comment on above: Order Comment: Order Date: 03/19/24 Order Info: [id number] - CMP Order Info: [id number] - LIPID Performed By: #### L 506.1000, L500.4100, L500.4050 #### [facility] [address] [place], [address] Triglyceride [Mass/Vol] 81 mg/dL Normal [facility] Comment on above: Order Comment: Order Date: 03/19/24 Order Info: [id number] - CMP Order Info: [id number] - LIPID Result Comment: The drugs N-Acetylcysteine and Metamizole may falsely depress this assay. Serum Triglycerides Reference Interval Normal <150 mg/dL Borderline high 150 - 199 mg/dL High 200 - 499 mg/dL Very High > or = 500 mg/dL Performed By: #### L 506.1000, L500.4100, L500.4050 #### [facility] [address] [place], [place], [address] Vitamin D,25 Hydroxyon 03-19 Vitamin D 25-OH 34.0 ng/mL Normal [facility] Comment on above: Order Comment: Order Date: 03/19/24 Order Info: [id number] - VITD25 Result Comment: Mary min D 25(OH) Status Range Deficiency <20 ng/mL (50nmol/L) Insufficiency 20 - 30 ng/mL (50 - 75 nmol/L) Sufficiency 30 - 100 ng/mL (75 - 250 nmol/L) Toxicity >100 ng/mL (>250 nmol/L) Performed By: #### L 506.1000, L500.4100, L500.4050 #### [facility] [address] [place], [place], [address] Absolute lymphocyte countOrd ered By: Adri Ambrocio on 08-16-2022 Lymphocytes Auto (Unsp spec) [#/Vol] 1.35 10*3/uL 0.83-4.51 [facility] Basophil percentageOrdered B y: Adri Ambrocio on 08-16-2022 Basophils/100 WBC (Bld) 0.6 % 0-1 [facility] Bilirubin [Mass/Vol] 0.50 mg/dL 0.20-1.00 [facility] Comment on above: For patients on eltr ombopag therapy, use of Dimension Fishtail TBIL is not recommended. Chloride [Moles/Vol] 107 mmol/L 98-107 [facility] Cholesterol [Mass/Vol] 251 mg/dL <200 [facility] Comment on above: <200 mg/dL Desirable 200-240 mg/dL Borderline >240 mg/dL High Risk Eosinophils/100 WBC (Bld) 3.9 % 0-5 [facility] Glucose [Mass/Vol] 95 mg/dL 74-106 [facility] Neutrophils (Bld) [#/Vol] 2.8 10*3/uL 2.0-7.7 [facility] Neutrophils/100 WBC (Bld) 57.6 % 47-70 [facility] Potassium [Moles/Vol] 4.5 mmol/L 3.5-5.1 [facility] Protein [Mass/Vol] 7.3 g/dL 6.4-8.2 [facility] Sodium [Moles/Vol] 138 mmol/L 136-145 [facility] Triglyceride [Mass/Vol] 82 mg/dL <199 [facility] Comment on above: The drugs N-Acetylcy steine and Metamizole may falsely depress this assay.Serum Triglycerides Reference Interval Normal <150 mg/dL Borderline high 150 - 199 mg/dL High 200 - 499 mg/dL Very High > or = 500 mg/dL WBC (Bld) [#/Vol] 4.9 10*3/uL 4.4-11.0 [facility] Blood erythrocytes count (nu mber/volume)Ordered By: Adri Ambrocio on 08-16-2022 RBC (Bld) [#/Vol] 4.66 10*6/uL 4.2-5.4 [facility] Blood hemoglobin measurement (mass/volume)Ordered By: Adri Ambrocio on 08-16-2022 Hemoglobin (Bld) [Mass/Vol] 14.8 g/dL 12.0-15.0 [facility] Blood lymphocytes/100 leukoc ytesOrdered By: Adri Ambrocio on 08-16-2022 Lymphocytes/100 WBC (Bld) 27.8 % 19-41 [facility] Blood monocytes/100 leukocyt esOrdered By: Adri Ambrocio on 08-16-2022 Monocytes/100 WBC (Bld) 9.9 % 0-10 [facility] Blood platelet mean volumeOr dered By: Adri Ambrocio on 08-16-2022 Platelet mean volume (Bld) [Entitic vol] 10.0 fL 6.2-12.0 [facility] Determination of erythrocyte mean corpuscular volume (MCV)Ordered By: Adri Ambrocio on 08-16-2022 MCV (RBC) [Entitic vol] 97.0 fL 81-99 [facility] Hematocrit Auto (Bld) [Volum e fraction]Ordered By: Adri Ambrocio on 08-16-2022 Hematocrit (Bld) [Volume fraction] 45.2 % 37-47 [facility] - Chemistry and C hemistry - challengeOrdered By: Adri Ambrocio on 08-16-2022 ALP [Catalytic activity/Vol] 108 U/L 45-117 [facility] ALT [Catalytic activity/Vol] 30 U/L 13-56 [facility] CO2 [Moles/Vol] 28.0 mmol/L 21.0-32.0 [facility] Globulin (S) [Mass/Vol] 3.4 g/dL 2.2-4.2 [facility] Urea nitrogen/Creatinine [Mass ratio] 18.1 mg/mg 10-20 [facility] - Hematology and Cell countsOrdered By: Adri Ambrocio on 08-16-2022 Erythrocyte distribution width (RBC) [Entitic vol] 47.4 fL 35.1-43.9 [facility] Erythrocyte distribution width (RBC) [Ratio] 13.2 % 11.6-14.6 [facility] Immature granulocytes/100 WBC (Bld) 0.200 % 0.0-0.9 [facility] Comment on above: IG% - Immature Granu locytes (promyelocytes, myelocytes and metamyelocytes) > 1% indicates that a LEFT SHIFT is Present. MCH (RBC) [Entitic mass] 31.8 pg 27.0-32.0 [facility] Nucleated RBC/100 WBC (Bld) [Ratio] 0 % 0-5 [facility] MCHC Auto (RBC) [Mass/Vol]Or dered By: Adri Ambrocio on 08-16-2022 MCHC (RBC) [Mass/Vol] 32.7 g/dL 32-36 [facility] No Panel InformationOrdered By: Adri Ambrocio on 08-16-2022 Estimated GFR (MDRD) Amer 91 mL/min >60 [facility] Comment on above: GFR Calc Estimated GFR (MDRD) Non-Af Amer 75 mL/min >60 [facility] Comment on above: Non- GFR Calc Thyroid Stimulating Hormone (TSH) 1.49 uIU/mL 0.358-3.74 [facility] Platelets bldOrdered By: Christian Ambrocio on 08-16-2022 Platelets (Bld) [#/Vol] 283 10*3/uL 150-450 [facility] Serum or plasma albumin maria antonia urement (mass/volume)Ordered By: Adri Ambrocio on 08-16-2022 Albumin [Mass/Vol] 3.9 g/dL 3.2-5.0 [facility] Serum or plasma albumin/glob ulin mass ratioOrdered By: Adri Ambrocio on 08-16-2022 Albumin/Globulin [Mass ratio] 1.1 {ratio} 0.9-2.4 [facility] Serum or plasma calcium maria antonia urement (mass/volume)Ordered By: Adri Ambrocio on 08-16-2022 Calcium [Mass/Vol] 9.4 mg/dL 8.5-10.1 [facility] Serum or plasma cholesterol in HDL measurement (mass/volume)Ordered By: Adri Ambrocio on 08-16-2022 Cholesterol in HDL [Mass/Vol] 94 mg/dL >40 [facility] Comment on above: The drugs N-Acetylcy steine and Metamizole may falsely depress this assay. Reference Range HDL <40 mg/dL Low HDL Cholesterol HDL >or= 60 mg/dL High HDL Cholesterol Serum or plasma cholesterol in VLDL measurement (mass/volume)Ordered By: Adri Ambrocio on 08-16-2022 Cholesterol in VLDL [Mass/Vol] 16 mg/dL 5-40 [facility] Serum or plasma creatinine m easurement (mass/volume)Ordered By: Adri Ambrocio on 08-16-2022 Creatinine [Mass/Vol] 0.83 mg/dL 0.55-1.02 [facility] Comment on above: The validity of the calculated GFR & GFRAA in patients over 70 years has not been determined. Clinical correlation is essential. Serum or plasma low density lipoprotein (LDL) cholesterol measurement (mass/volume)Ordered By: Adri Ambrocio on 08-16-2022 Cholesterol in LDL [Mass/Vol] 141 mg/dL 0-130 [facility] Serum or plasma urea nitroge n measurement (mass/volume)Ordered By: Adri Ambrocio on 08-16-2022 Urea nitrogen [Mass/Vol] 15 mg/dL 7-18 [facility] Thin prep Papanicolaou smear with manual screeningOrdered By: Adri Ambrocio on 08-16-2022 Thin prep Papanicolaou smear with manual screening 21 U/L 15-37 [facility] Thin prep Papanicolaou smear with manual screening 3 5-15 [facility] Whole blood hemoglobin A1c/t otal hemoglobin ratio (mass fraction)Ordered By: Adri Ambrocio on 08-16-2022 HbA1c (Bld) [Mass fraction] 4.9 % 3.8-5.6 [facility] Comment on above: Normal < 5.7 % Predi abetic 5.7 - 6.4 % Diabetic >or= 6.5 % Please note range changes. Vikram 06-29-2018 [facility] HNO ID: [id number] Author: Mammography Coordinator Service: ? Author Type: Physician Type: Letter Filed: 07/02/2018 11:32 PM Note Text: [facility] [address] [id number] June 29, 2018 PID: [id number] Gerri Georges [address] [place] [address] Dear Ms. Georges, We are pleased to [...] report will be kept on file at [facility] as part of your permanent medical record and are available for your continuing care. Thank you for allowing us to help in meeting your health care needs. Sincerely, Dr. Moran Interpreting Radiologist [facility] (Normal over 40) Normal [facility] SCREENINGon 06-29-2018 [facility] SCREENING * * *Final Report* * * DATE OF EXAM: Jun 29 2018 1:04PM [id number] - [facility] SCREENING / PROCEDURE REASON: multiple diagnoses * * * * Physician Interpretation * * * * RESULT: #[id number] - [facility] SCREENING BILATERAL DIGITAL SCREENING MAMMOGRAM WITH CAD: 06/29/2018 HISTORY: Multiple Diagnoses /Screening Mammogram - patient reports no symptoms. RESULT: TECHNIQUE: The study was acquired using full field digital technology and interpreted from soft copy. Current study was also evaluated with a Computer Aided Detection (CAD). Comparison is made to exam dated: 05/16/2017 mammogram - [facility]. The tissue of both breasts is heterogeneously dense. This may lower the sensitivity of mammography. No significant masses, calcifications, or other findings are seen in either breast. There has been no significant interval change. IMPRESSION: NEGATIVE There is no mammographic evidence of malignancy. A 1 year screening mammogram is recommended. Sachi Moran M.D., mc/karyn:06/29/2018 13:20:05 Technical Consultant(s): RT Maddy(Robert)(M), [facility] letter sent: Normal over 40 Mammogram BI-RADS: [...] Health, Family Medicine, and Medical/Surgical Oncology, the [facility] has carefully reviewed the data and [...] their providers when to stop screening mammograms. Gmat Tutor: Karyn Transcribe Date/Time: Jun 29 2018 1:04P Dictated by: SACHI HART MD This examination was interpreted and the report reviewed and electronically signed by: SACHI HART MD on Jun 29 2018 1:20PM EST [id number] CN Normal [facility] Vital Signs Date Time Vital Sign Value Performing Clinician Faci lity 01-12-2025 17:56-0400 Body weight 94.[address] Soledad Nuñez MD Work Phone: [facility] 01-12-2025 17:20-0400 Body height 172.[address] Soledad Nuñez MD Work Phone: [facility] 01-12-2025 17:20-0400 Body mass index (BMI) [Ratio] 31.6 kg/m2 Dr. Soledad Nuñez MD Work Phone: [facility] 01-12-2025 17:20-0400 Body temperature 98.1 [degF] Dr. Soledad Nuñez MD Work Phone: [facility] 01-12-2025 17:20-0400 Diastolic blood pressure 77 mm[Hg] Dr. Soledad Nuñez MD Work Phone: [facility] 01-12-2025 17:20-0400 Heart rate 69 /min Dr. Soledad Nuñez MD Work Phone: [facility] 01-12-2025 17:20-0400 Respiratory rate 18 /min Dr. Soledad Nuñez MD Work Phone: [facility] 01-12-2025 17:20-0400 SaO2% (BldA) [Mass fraction] 99 % Dr. Soledad Nuñez MD Work Phone: [facility] 01-12-2025 17:20-0400 Systolic blood pressure 127 mm[Hg] Dr. Soledad Nuñez MD Work Phone: 3(202)[phone] [place] [address] 01-09-2025 17:47-0400 Body temperature 98.2 [degF] Dr. Soledad Nuñez MD Work Phone: 8(200)052-036902 [place] [address] 01-09-2025 17:47-0400 Diastolic blood pressure 72 mm[Hg] Dr. Soledad Nuñez MD Work Phone: 5(942)468-517302 [place] [address] 01-09-2025 17:47-0400 Heart rate 54 /min Dr. Soledad Nuñez MD Work Phone: 4(320)477-720902 [place] [address] 01-09-2025 17:47-0400 Respiratory rate 18 /min Dr. Soledad Nuñez MD Work Phone: [facility] 01-09-2025 17:47-0400 SaO2% (BldA) [Mass fraction] 100 % Dr. Soledad Nuñez MD Work Phone: [facility] 01-09-2025 17:47-0400 Systolic blood pressure 145 mm[Hg] Dr. Soledad Nuñez MD Work Phone: [facility] 01-09-2025 16:19-0400 Body height 172.[address] Soledad Nuñez MD Work Phone: [facility] 01-09-2025 16:19-0400 Body mass index (BMI) [Ratio] 31.1 kg/m2 Dr. Soledad Nuñez MD Work Phone: [facility] 01-09-2025 16:19-0400 Body weight 93.[address] Soledad Nuñez MD Work Phone: [facility] 12-29-2022 11:02-0400 Body temperature 97.1 [degF] DO Adriok Almeidanger Work Phone: [facility] 12-29-2022 11:02-0400 Diastolic blood pressure 68 mm[Hg] DO Adri Lolly Work Phone: [facility] 12-29-2022 11:02-0400 Heart rate 52 /min DO Adri Lolly Work Phone: [facility] 12-29-2022 11:02-0400 Respiratory rate 16 /min DO Adriok Almeidanger Work Phone: [facility] 12-29-2022 11:02-0400 SaO2% (BldA) [Mass fraction] 100 % DO Adriok Almeidanger Work Phone: [facility] 12-29-2022 11:02-0400 Systolic blood pressure 115 mm[Hg] DO Adriok Almeidanger Work Phone: [facility] 12-29-2022 09:32-0400 Body height 172.72 cm DO Adriok Almeidanger Work Phone: [facility] 12-29-2022 09:32-0400 Body mass index (BMI) [Ratio] 29.9 kg/m2 DO Adriok Almeidanger Work Phone: [facility] 12-29-2022 09:32-0400 Body weight 89.3 kg DO Adriok Almeidanger Work Phone: [facility] 11-03-2022 11:29-0400 Body mass index (BMI) [Ratio] 28.1 kg/m2 DO Adriok Almeidanger Work Phone: [facility] 11-03-2022 11:29-0400 Body weight 83.91 kg DO Adriok Almeidanger Work Phone: [facility] Encounters Encounter Date Encounter Type Care Provider Facility Start: 01-12-2025 End: 01-12-2025 Emergency department patient visit Dr. Soledad Nuñez MD Work Phone: -Emergency Department Work Phone: Start: 01-09-2025 End: 01-09-2025 Emergency department patient visit Dr. Soledad Nuñez MD Work Phone: -Emergency Department Work Phone: Start: 01-09-2025 End: 01-09-2025 Emergency department patient visit SOLEDAD NUÑEZ [facility] Start: 03-19-2024 End: 03-19-2024 ambulatory Soledad Nuñez Facility:[facility] Start: 02-28-2024 End: 03-04-2024 ambulatory Janneth Dale MD Work Phone: [facility] [place] Start: 03-22-2023 ambulatory Janneth Mann Work Phone: [facility] [place] Start: 12-29-2022 Non-patient / Non-visit DO Christian Ambrocio Work Phone: [facility] Start: 12-29-2022 End: 12-29-2022 Admission to same day surgery center DO Adri Ambrocio Work Phone: [facility] Work Phone: Start: 12-29-2022 End: 12-29-2022 ambulatory DO Adri Ambrocio Work Phone: [facility] Work Phone: Start: 11-03-2022 Non-patient / Non-visit DO Christian Ambrocio Work Phone: [facility] Work Phone: Start: 10-26-2022 End: 10-26-[address] [facility] Work Phone: Start: 10-26-2022 End: 10-26-[address] [facility] Work Phone: Start: 08-16-2022 End: 08-16-[address] [facility] Work Phone: Start: 08-16-2022 End: 08-16-[address] [facility] Start: 04-07-2022 ambulatory Janneth Mann Work Phone: [facility] [place] Start: 06-29-2018 Encounter for genera l adult medical examination without abnormal findings [facility] Start: 06-29-2018 End: 06-29-2018 Patient encounter procedure [facility] Procedures Date Procedure Procedure Detail Performing Clinician Start: 12-29-2022 Colonoscopy DO Adri Almeidanger Work Phone: Start: 10-26-2022 Screening mammography Start: [...] Detail Author Start: 12-20-2026 Urine microalbumin profile [facility] Start: 03-09-2026 Lipid 1996 panel - S donald or Plasma Lipid Screening [facility] Start: 03-09-2026 Lipid panel Lipid Screening [facility] Start: 03-09-2026 LIPID SCREEN LIPID SCREEN [facility] Start: 04-30-2025 HPV TESTING HPV TESTING [facility] Start: 04-30-2025 PAP TESTING PAP TESTING [facility] Start: 04-30-2025 Screening for malign ant neoplasm of cervix Cervical Cancer Screening [facility] Start: 01-09-2025 [facility] Start: 03-09-2024 DIABETES SCREEN DIABETES SCREEN [facility] Start: 03-09-2024 Diabetes Screening Diabetes Screenin g [facility] Start: 12-31-2023 Covid-19 Vaccine () Covid-19 Vaccine () [facility] Start: 12-31-2023 Influenza vaccination Influenza Vacc ine (#1) [facility] Start: 12-30-2022 Covid-19 Vaccine ( season) Covid-19 Vaccine ( season) [facility] Start: 12-30-2022 Influenza vaccination Influenza Vacc ine (#1) [facility] Start: 12-29-2022 Patient discharge [facility] Start: 07-04-2022 Colonoscopy COLONOSCOPY [facility] Start: 07-04-2022 COLORECTAL CANCER SCREENING COLORECTAL CANCER SCREENING [facility] Start: 07-04-2022 Screening for malign ant neoplasm of colon [facility] Start: 05-01-2022 Depression Assessment Depression Ass essment [facility] Start: 02-22-2022 Mammography [facility] Start: 02-22-2022 Screening for malign ant neoplasm of breast Mammogram Screening [facility] Start: 12-30-2021 Influenza vaccination INFLUENZA (#1) [facility] Start: 05-04-2021 COVID-19 VACCINE (4 - Booster for Pfizer series) COVID-19 VACCINE (4 - Booster for Pfizer series) [facility] Start: 05-01-2021 DEPRESSION ASSESSMENT DEPRESSION ASS ESSMENT [facility] Start: 2009 COLOGUARD (FIT-DNA) COLOGUARD (FIT-D NA) [facility] Start: [address] COLONOGRAPHY [facility] Start: 2009 FECAL OCCULT BLOOD FECAL OCCULT BLOO D [facility] Start: 2009 Screening for malign ant neoplasm of colon [facility] Start: 2009 [facility] Start: 1982 Anxiety Screening Anxiety Screening [facility] Start: 1982 Depression Screening Depression Scre ening [facility] Start: 1965 HEPATITIS B (1 of 3 - 3-dose series) HEPATITIS B (1 of 3 - 3-dose series) [facility] Start: 1965 Hepatitis B Vaccine (1 of 3 - 3-dose series) Hepatitis B Vaccine (1 of 3 - 3-dose series) [facility] Colonoscopy [facility] End: 03-29-2025 DBT Breast - bilateral screening DORIAN SCREENING W [facility] Radiology Routine Encounter for screening mammogram for breast cancer 1 Occurrences starting 02/28/2024 until 03/29/2025 [facility] Work Phone: Comment on above: 1 Occurrences starti ng 02/28/2024 until 03/29/2025 End: 05-07-2023 DORIAN SCREENING W DARIUS DORIAN SCREENING W [facility] Radiology Routine Encounter for screening mammogram for breast cancer 1 Occurrences starting 04/07/2022 until 05/07/2023 [facility] Work Phone: Comment on above: 1 Occurrences starti ng 04/07/2022 until 05/07/2023 End: 04-20-2024 DORIAN SCREENING W DARIUS DORIAN SCREENING W [facility] Radiology Routine Encounter for screening mammogram for breast cancer 1 Occurrences starting 03/22/2023 until 04/20/2024 [facility] Work Phone: Comment on above: 1 Occurrences starti ng 03/22/2023 until 04/20/2024 Patient Education ED Animal Bite (General) ED Hypertension, To Be Confirmed [facility] Work Phone: Patient referral [facility] Work Phone: Immunizations Immunization Date Immunization Notes Care Provider [facility] 01-12-2025 rabies vaccine, for intramuscular injection Dr. Soledad Nuñez MD Work Phone: [facility] 01-09-[address] Lizette Nuñez MD Work Phone: [facility] 01-09-2025 rabies vaccine, for intramuscular injection Dr. Soledad Nuñez MD Work Phone: [facility] 02-12-2022 influenza virus vacc ine, unspecified formulation Janneth Dale MD Work Phone: [facility] 03-01-2021 influenza, injectabl e, quadrivalent, contains preservative Janneth Dale MD Work Phone: [facility] 06-23-2020 zoster vaccine recombinant Janneth Dale MD Work Phone: [facility] Work Phone: 04-06-2020 zoster vaccine recombinant Janneth Dale MD Work Phone: [facility] Work Phone: 12-20-2016 tetanus toxoid, redu joycelyn diphtheria toxoid, and acellular pertussis vaccine, adsorbed Janneth Dale MD Work Phone: [facility] 05-21-2012 influenza virus vacc ine, unspecified formulation Janneth Dale MD Work Phone: [facility] Payers Date Payer Category Payer Unknown [id number] 2024 Self-pay 2024 Unknown [id number] 2014 Unknown [id number] 1965 Unknown [id number] Unknown [id number] Unknown [id number] Social History Date Type Detail Facility Start: 02-11-2013 End: 01-09-2025 Tobacco smoking status MSIS Never smoked tobacco [facility] Start: 02-11-2013 Tobacco use and exposure Smokeless tobacco non-user [facility] Start: 03-09-2021 Alcohol intake Current drinker of alcohol (finding) [facility] Start: 04-04-2020 End: 03-09-2021 Alcohol intake [facility] Start: 02-24-2020 History SDOH Alcohol Frequency 4 [facility] Start: 02-24-2020 End: 02-22-2021 History SDOH Alcohol Std Drinks 1 [facility] Start: 02-24-2020 End: 02-22-2021 History SDOH Social Connections Get Together 2 [facility] Start: 02-24-2020 History SDOH Social Connections Living 3 [facility] Start: 02-24-2020 History SDOH Financial 5 [facility] Start: 02-24-2020 Education 17 [facility] Start: 1965 Sex Assigned At Not on file [facility] Start: 1965 Sex Assigned At Female [facility] Start: 12-27-2022 Tobacco smoking status NHIS Unknown if ever smoked [facility] Start: 02-24-2020 End: 04-04-2020 Social connection and isolation panel [facility] Do you belong to any clubs or organizations such as jehovah's witness groups, unions, fraternal or athletic groups, or school groups? No [facility] Are you now , , , , never or living with a partner? [facility] How often to you hav e a drink containing alcohol? 2-3 time sa week [facility] How many standard dr inks containing alcohol do you have on a typical day? 1 or 2 [facility] How often do you hav e 6 or more drinks on 1 occasion? Never [facility] How hard is it for y ou to pay for the very basics like food, housing, medical care, and heating Not hard at all [facility] Do you feel stress - tense, restless, nervous, or anxious, or unable to sleep at night because your mind is troubled all the time - these days [OSQ] To some extent [facility] (I/We) worried wheth er (my/our) food would run out before (I/we) got money to buy more. Never true [facility] Start: 02-24-2020 Gender identity Identifies as female gender (finding) [facility] Start: 02-24-2020 Sexual orientation Heterosexual (finding) [facility] Goals Date Patient Goal Desired Activity /State Mental Status Date Assessment Result Facility 12-29-2022 Cognitive function Level Of Cons ciousness Follows Commands;Drowsy [facility] Work Phone: 12-29-2022 Cognitive function Voice/Name [facility] Work Phone: Clinical Notes 01-25-2019 to 01-09-2025 Note Date & Type Note Facility 01-09-[address] [facility] 01-09-2025 Discharge summary Note Date/Time January 09, 2025 4:42pm [facility] Medical Records Department [address] [place] [address] Emergency Department Summary 01/09/25 MR#: [id number] Acct: [id number] Name: GERRI GEORGES Rep #:[id number] : 1965 59 From: Toribio Huntley MD PCP: Dr. Soledad Nuñez MD Status:NH E ER Location: ED HPI History of [...] Taken ?Type multivitamin 1 tab PO DAILY 11/03/22 08/12/21 History cholecalciferol (vitamin D3) 25 25 mcg [...] has puncture wound daughter who is a cinema or theatre manager is concerned this puncture was consistent with [...] Care Provider] - 1-2 Weeks Print Language: [place] Disposition Disposition: Home, Self Care What to do if you have Problems For any increased pain, shortness of breath, bleeding, nausea or vomiting, chestpain, or any unexpected problems, contact your Primary Care Provider. Call [facility] ([phone]) or report to the closest Emergency Room. Call 911 if necessary. 01/09/25 1642 <Electronically signed by Toribio Huntley MD> Cosigner Signature (if applicable): CC: Dr. Soledad Nuñez MD ~ Signed [facility] Work Phone: 1(922) 782-135810-30-2024 NotePatient Outreach (INTMMN) GERRI GEORGES ([id number]) 1965 F Date Time Provider Department 02/28/24 JANNETH DALE INTHEMANT During your visit today, we recorded the following information about you: Allergies As of Date: 02/28/2024 (No Known Allergies) Date Reviewed: 03/09/2021 Reviewed by: Marisela Hernandez OD - Fully Assessed Visit Diagnosis:Encounter for screening mammogram for breast cancer [Z12.31] Order(s):[facility] SCREENING W DARIUS [[id number]] Order #: [id number] FUTURE Prescriptions as of 03/04/2024 - cholecalciferol, Vitamin D3, (VITAMIN D3) 1,250 mcg (50,000 unit) cap capsule Take 1 capsule by mouth one time a week. - Revelo-3 Fatty Acids-Vitamin E (FISH OIL) 1,000 mg [...] of LASIK [Z98.890] 01/29/2019 Encounter Status:Closed by JULIET VARNER on 03/04/24[facility] 03-22-2023 NotePatient Outreach (INTMMN) GERRI GEORGES ([id number]) 1965 F Date Time Provider Department 03/22/23 JANNETH DALE During your visit today, we recorded the following information about you: Allergies As of Date: 03/22/2023 (No Known Allergies) Date Reviewed: 03/09/2021 Reviewed by: Marisela Hernandez OD - Fully Assessed Visit Diagnosis:Encounter for screening mammogram for breast cancer [Z12.31] Order(s):[facility] SCREENING W DARIUS [[id number]] Order #: [id number] FUTURE Prescriptions as of 03/27/2023 - cholecalciferol, Vitamin D3, (VITAMIN D3) 1,250 mcg (50,000 unit) cap capsule Take 1 capsule by mouth one time a week. - Revelo-3 Fatty Acids-Vitamin E (FISH OIL) 1,000 mg [...] astigmatism of both eyes [H52.223] 01/29/2019 Hx tyesha VALENTIN [Z98.890] 01/29/2019 Encounter Status:Closed by RUTH VARNERUSER on 03/27/23[facility] 12-29-2022 Procedure [facility]08-31-[address] [facility]09-27-2019 History of Past illness Narrative* Problem Noted Date Resolved Date Metrorrhagia 01/25/2019 documented as of this encounter (statuses as of 04/11/2022) [facility]-27[facility]2019 History of Past illness Narrative* Problem Noted Date Diagnosed Date Resolved Date Metrorrhagia 01/25/2019 documented as of this encounter (statuses as of 03/27/2023) [facility] Encounter for screening mammogram for breast cancer documented in this encounter [facility] noteNo assessment information available[facility] Work Phone: Evaluation note* Diagnosis Onset Date Resolution Status Encounter for screening for malignant neoplasm of colo n acute [facility] Work Phone: evaluation note* Diagnosis Encounter for screening mammogram for breast cancer documented [facility] this encounter [facility] Author Cheko Friend [facility] December 29, 2022 10:15am Note Date/Time December 29, 2022 10 :15am [facility] Medical Records Department [address] [place] [address] History & Physical Exam 12/29/22 1013 MR#: [id number] Acct: [id number] Name: GERRI GEORGES Rep #:[id number] : 1965 57 From: Cheko Kirby DO PCP: Adri Ambrocio DO Status:REG S DC Location: [place] [address] HPI - General General Date of Admission: [...] take any medicines on a daily basis. [facility] Medical History (Updated 12/27/22 [...] 2. 12/29/22 1015 <Electronically signed by Cheko Friend DO> Cosigner Signature (if applicable): CC: Adri Ambrocio, DO; Cheko Kirby, DO~ Signed [facility] Work Phone: Reqtxr for referral (narrative)* Diagnostic Procedure Only (Routine) - Pending Review Specialty Diagnoses / Procedures Referred By Kayce lara Referred To Contact [facility] Diagnoses Encounter for screening mammogram for breast cancer Procedures DORIAN SCREENING W DARIUS SCREENING DIGITAL BREAST TOMOSYNTHESIS BI SCREENING MAMMOGRAPHY BI 2-VIEW BREAST INC Janneth Flores MD [address] [place] [address] [facility] [address] [place] [address] Referral ID Status Reason Start Date Expiration Date Visits Requested Visits Authorized [id number] Pending Review Auto-Generat ed Referral 04/07/2022 05/07/2023 1 1 [facility] for referral (narrative)* Diagnostic Procedure Only (Routine) - Pending Review Specialty Diagnoses / Procedures Referred By Kayce lara Referred To Contact [facility] Diagnoses Encounter for screening mammogram for breast cancer Procedures DORIAN SCREENING W DARIUS SCREENING DIGITAL BREAST TOMOSYNTHESIS BI SCREENING MAMMOGRAPHY BI 2-VIEW BREAST INC Janneth Flores MD [address] [place] [address] [facility] [address] [place] [address] Referral ID Status Reason Start Date Expiration Date Visits Requested Visits Authorized [id number] Pending Review Auto-Generat ed Referral 3 04/20/2024 1 1 [facility] for referral (narrative)* Diagnostic Procedure Only (Routine) - New Request Specialty Diagnoses / Procedures Referred By Kayce lara Referred To Contact [facility] Diagnoses Encounter for screening mammogram for breast cancer Procedures DORIAN SCREENING W DARIUS SCREENING DIGITAL BREAST TOMOSYNTHESIS BI SCREENING MAMMOGRAPHY BI 2-VIEW BREAST INC Janneth Flores MD [address] [place] [address] [facility] [address] [place] [address] Referral ID Status Reason Start Date Expiration Date Visits Requested Visits Authorized [id number] New Request Auto-Generat ed Referral 4 03/29/2025 1 1 [facility]ative[facility]No reason for referral information [facility] Work Phone: Summary Purpose Family History No Family History Records FoundNo Family History Records FoundNo Family History Records FoundNo Family History Records Found Advance Directives Advance Directive Response Recorded Date/ Time Living Will No December 27 3 9:33am Power of Still Operator No December 27 023 9:33am Advance Directive Response Recorded Date/ Time Do you have a Healthcare Power of Still Operator? Yes January 09, 2025 4:30pm Chief Complaint and Reason for Visit Chief Complaint SCREENING Chief Complaint SCREENING Amb Documentation Reason for Visit Encounter for screen ing for malignant neoplasm of colon Chief Complaint Admit Date BITE January 09, 2025 4:17pm Chief Complaint Admit Date BITE January 09, 2025 4:17pm Rabies Vaccine January 12, 2025 5:19pm Additional Source Comments INFORMATION SOURCE (unrecogn ized section and content) DATE CREATED AUTHOR 07/04/2018 [facility] DATE CREATED AUTHOR AUTHOR'S ORGANIZ ATION 03/04/2024 [facility] DATE CREATED AUTHOR AUTHOR'S ORGANIZ ATION 01/12/2025 [facility] DATE CREATED AUTHOR AUTHOR'S ORGANIZ ATION 01/12/2025 [facility] Source Comments (unrecognize d section and content) In the event this informatio n is protected by the Federal Confidentiality of Alcohol and Drug Abuse Patient Records regulations: The Federal rules restrict any use of the information to criminally investigate or prosecute any alcohol or drug abuse patient.[facility] the event this information is protected by the Federal Confidentiality of Alcohol and Drug Abuse Patient Records regulations: The Federal rules restrict any use of the information to criminally investigate or prosecute any alcohol or drug abuse patient.[facility] HospitalIn the event this information is protected by the Federal Confidentiality of Alcohol and Drug Abuse Patient Records regulations: The Federal rules restrict any use of the information to criminally investigate or prosecute any alcohol or drug abuse patient.[facility] Care Teams (unrecognized sec tion and content) Team Status: Active Member Role Status Dates Adri Ambrocio DO Primary Care Provider Active Team Status: Active Member Role Status Dates Adri Ambrocio DO Primary Care Provider Active Angie Olvera Attending Provider Active Team Status: Active Member Role Status Dates Adri Ambrocio DO Primary Care Provider, Referring Provider Active Dr. Cheko Kirby , DO Attending Provider, Other Prov ider Active Team Status: Inactive Member Role Status Dates Adri Ambrocio , Primary Care Provider, Attending Provider Active Team Status: Inactive Member Role Status Dates Adri Ambrocio , Primary Care Provider, Referring Provider Active Dr. Cheko Kirby , DO Attending Provider Active Associate Director Finance Relationship Specialty Start Date End Date Janneth Dale MD [address] [place] [address] PCP - General Internal Medicine 02/25/20 Associate Director Finance Relationship Specialty Start Date End Date Janneth Dale MD [address] [place] [address] PCP - General Internal Medicine 02/25/20 Team Status: Active Member Role/Relationship Status Dates Dr. Soledad Nuñez MD Primary Care Provider Active Team Status: Inactive Member Role/Relationship Status Dates Dr. Soledad Nuñez MD Primary Care Provider Active Start: January 09, 2025 End: January 09, 2025 Dr. Toribio Huntley MD Emergency Provider Active Sta rt: January 09, 2025 End: January 09, 2025 Team Status: Inactive Member Role/Relationship Status Dates Dr. Soledad Nuñez MD Primary Care Provider Active Start: January 12, 2025 End: January 12, 2025 Dr. Toribio Huntley MD Emergency Provider Active Sta rt: January 12, 2025 End: January 12, 2025 Goals (unrecognized section and content) Goals [...] BE BASED ON THE PRIMARY CLINICAL RECORDS. [employer] [facility]. provides no warranty or guarantee of the accuracy or completeness of information in this document.
== END 2025-01-12 18:02 | disposition home or self-care (01) ==
PROVIDERS: PCP Family Medicine; Visit Provider Emergency Medicine
DX: Z20.3 Contact with and (suspected) exposure to rabies (principal); Z23 Encounter for immunization
CPT/HCPCS: 90675; 96372

== ENCOUNTER → 2025-01-16 | Outpatient (CLI) | payer OTHER, SELFPAY ==
[2025-01-16 14:37] VITALS: BP 114/76; PULSE 68; RESP 16; TEMP 36.6; O2SAT 100; BMI 31.4
[2025-01-16 15:39] VITALS: BP 114/76; PULSE 68; RESP 16; TEMP 36.6; O2SAT 100
--- OUTSIDE RECORDS SUMMARY | 2025-01-16 18:48 | XMS RPT_ITS | CCD ---
Author Organization [facility] Care Team Providers Care Wet Process Head Miller Name Role Phone ADY SUGAR SOLEDAD Referring Unavailable Janneth Dale MD Primary Care Provider DO Adri Ambrocio Primary Care Provider [phone] Angie Olvera Attending Provider Unavailable DO Adri Ambrocio Referring Provider Friend, Dr. Still Attending Provider Friend, Dr. Still Other Provider [phone] Janneth Dale MD Primary Care Provider [phone] Tor GILMAN, Dr. Soledad Montiel Primary Care Provider Dr. Toribio Huntley MD Emergency Provider [phone] SOLEDAD NUÑEZ Referring Unavailable SOLEDAD NUÑEZ Consulting Unavailable DESTINY PORTER DO Attending Unavailable DESTINY PORTER DO Primary Care Unavailable DESTINY PORTER DO Admitting Unavailable PROVIDER, UNKNOWN Consulting Unavailable Soledad Nuñez Attending Unavailable Soledad Nuñez Primary Care Unavailable Toribio Huntley Attending Unavailable Soledad Nuñez Primary Care Unavailable Soledad Nuñez Primary Care Unavailable Toribio Huntley Attending Unavailable Medications Current Medications Medication Drug Class(es) Dates Sig (Normalized) Sig (Original) cholecalciferol 0.025 mg oral capsule (6 sources) Vitamin D Start: 12-27-2022 take 1 capsule by mouth once daily Cholecalciferol (Vitamin D3) (Vitamin D3) 25 mcg (1,000 unit) capsule Active 25 ug PO DAILY December 27, 2022 12:00am Start: 05-07-2020 take 1 capsule by [facility] every week cholecalciferol, Vitamin D3, (VITAMIN D3) [...] {tbl} PO DAILY November 03, 2022 12:00am [place]-3 Fatty Acids-Vitamin E (FISH OIL) 1,000 mg ORAL Cap (3 sources) Start: 1 take 1 capsule by mouth twice daily [place]-3 Fatty Acids-Vitamin E (FISH OIL) 1,000 mg ORAL Cap Take 1 capsule by mouth twice daily. 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 0.5 mL (NOW x1) 1 of 1 Normal [facility] ED NURSES CLINICAL NOTEon ED NURSES CLINICAL NOTE Nurse Narrative - GERRI GEORGES, : 1965, , Nurse Clinical Narrative [address] [address] [id number] 01/09/2025 14:31:00 Patient: GERRI GEORGES Sex: Female [...] Bj Medina R.N. 1 of 3 Nurse Narrative - GERRI GEORGES, : 1965, , Allergies: no known drug allergies -- 14:37 01/09/25 DANIELT Bj Medina R.N. Problems: no known problem -- 14:01/09/25 DANIELT Bj Medina R.N. Surgeries: -- 14:01/09/25 DANIELT Bj Medina R.N. Lasik -- 14:01/09/25 EDT Bj Medina R.N. History 14:01/09/25. SOCIAL HX: Never smoker. Occasional alcohol use. [...] No risk factors identified. -- 14:39 01/09/25 KAMERON Medina R.N. Interventions 14:01/09/25. Advanced care plan discussed with patient. Patient does not have advanced directive. -- 14:39 01/09/25 KAMERON Medina R.N. PHYSICAL ASSESSMENT 15:00 01/09/25. GENERAL / NEURO / PSYCH: Alert. Oriented X 4. Appears in no acute distress. RESPIRATORY: Respirations not labored. Breath sounds within normal limits. 2 of 3 Nurse Narrative - GERRI GEORGES, : 1965, , CVS: Normal heart rate and rhythm. EXTREMITIES: Right forearm: single puncture wound. -- 15:44 01/09/25 EDT Tamia Benítez R.N. NURSING PROGRESS NOTES 15:01/09/25. ED physician at the patient's bedside. -- [...] Reviewed referrals (Patient is to go to [place] ED for rabies vaccination). Patient verbalized understanding. Written instructions provided in Cymraes. The patient was discharged home and accompanied by spouse. The patient left ambulatory and via private vehicle. Spouse driving. -- 15:50 01/09/25 EDT Tamia Benítez R.N. (Electronically signed by Tamia Benítez R.N. 01/09/25 15:53:05 EDT) Generated by [facility] 3 of 3 Normal [facility] ED ORDER SHEET (CPOE ONLY)on 01-09-2025 ED ORDER SHEET (CPOE ONLY) Order Sheet - GERRI GEORGES, : 1965, , Order Sheet [address] [address] [id number] 01/09/2025 Patient: GERRI GEORGES Sex: Female : 1965 Age: 59y MEASUREMENTS: Wt: 83.9 kg, Ht/Gerber: 68.0 in, BMI: 28.13 ALLERGIES: No known drug allergies MEDICATION/IV/DRIP/F LUID ORDERS Order Description Priority Entered Acknowledged Completed Amoxicillin-Clav (Augmentin) 15:22 01/09/2025 15:34 15:38 PO 875 mg-125 mg Tab1 tab David Lopez D.O. 01/09/2025 01/09/2025 (NOW x1) Tamia Curry, Cecilia. R.N. Tdap IM DIPTH/TETANUS/PERT 15:22 01/09/2025 15:34 15:46 > 7yr and older0.5 mL (NOW x1) David Lopez D.O. 01/09/2025 01/09/2025 Tamia Curry R.N. R.N. LAB ORDERS Order Description Priority Entered Acknowledged Collected Completed DIAGNOSTIC STUDY ORDERS Order Description Priority Entered Acknowledged Completed STAFF ORDERS Order Description Priority Entered Acknowledged Collected Completed 1 of 2 Order Sheet - GERRI GEORGES, : 1965, , [Electronically signed by David Lopez D.O. (01/09/2025 19:33 EDT)] 2 of 2 Normal [facility] ED PHYSICIAN CLINICAL REPORT on 01-09-2025 ED PHYSICIAN CLINICAL REPORT Jesus - GERRI GEORGES, : 1965, , Physician Clinical Narrative [address] [place] [address] [id number] 01/09/2025 14:31:00 Patient: GERRI GEORGES Sex: Female [...] do not carry the rabies vaccine here. [place] [facility] does carry it and so does the [facility] department. But not the [facility]. I advised patient to go to [place]. But they can try following with the health deparment in [place] today if they wish but I told her we need to get the vaccine series started TODAY. So wherever place can get things going today. I told her I felt the ER in [place] is a better choice because they are [...] consistent with outpatient treatment. Go directly to [facility] ER now to get the rabies vaccine. CLINICAL IMPRESSION Multiple superficial bat bites to the right forearm. DISCHARGE INSTRUCTIONS (Go directly to [facility] for the rabies series of shots now. We don't have the rabies vaccine here. [facility] in [place], [place] also has the rabies vaccine and they are open till 4:30 pm but the ER in [place] might be more reliable palce to go. Take medication as prescribed.). Warnings: GENERAL WARNINGS: Return or contact your physician immediately if your condition worsens or changes unexpectedly, if not improvin (more content not included)... Normal [facility] ED SUPER BILL 01-09-2025 [facility] : 1965, , [address] [address] [id number] 01/09/2025 Patient: GERRI GEORGES Sex: Female : 1965 Age: 59y Item Professional Category Description Facility Code Code Quantity Fee Total Nurse/E/M EMERGENCY 696634 1 $0.00 $0.00 DEPARTMENT VISIT MODERATE SEVERITY (19608) Grand Total $0.00 Providers David Lopez D.O. Chief Complaint BAT BITE. Principal Diagnosis Multiple superficial bat bites to the right forearm. ICD-10 Codes 1 of 2 [place] - GERRI GEORGES, : 1965, , S50.871A: Other superficial bite of right forearm, initial encounter 2 of 2 Normal [facility] ED VISIT SUMMARYon ED VISIT SUMMARY Visit David - GERRI GEORGES, : 1965, , Visit [address] [address] [id number] 01/09/2025 Patient: GERRI GEORGES Sex: Female : [...] mcg-150 mg tablet 1 of 3 Visit Overview - GERRI GEORGES, : 1965, , PAST [...] 01/09/25 96% RA 2 of 3 Visit Overview - MARYCARMENIEGERRI TAN, : 1965, , First Vitals Last Vitals Pain 14:37 01/09/25 0 Pain 15:33 01/09/25 0 ETCO2 14:37 01/09/25 ETCO2 15:33 01/09/25 GCS 14:37 01/09/25 GCS 15:33 01/09/25 RTS 14:37 01/09/25 RTS 15:33 01/09/25 PROCEDURES NURSING INTERVENTIONS LABS / STUDIES CLINICAL IMPRESSION MULTIPLE SUPERFICIAL BAT BITES TO THE RIGHT FOREARM 3 of 3 Normal [facility] ED VITALS FLOW SHEETon 01-09 ED VITALS FLOW SHEET Vitals - GERRI GEORGES, : 1965, , Vital Sign Flow Sheet [address] [address] [id number] 01/09/2025 Patient: GERRI GEORGES Sex: Female : 1965 Age: 59y Measurements Wt: 83.9 kg, Ht/Gerber: 68.0 in, BMI: 28.13 Measured Time BP MAP HR RR O2Sat ETCO2 Temp Pain GCS RTS 15:33 01/09/2025 141/74 96 66 15 96% RA 0 14:37 01/09/2025 151/71 98 66 18 99% 97.9 F 0 1 of 1 Normal [facility] Emergency Department Summary on 01-09-2025 Emergency Department Summary [facility] Medical Records Department [address] [place] [id number] Emergency Department Summary 01/09/25 MR#: [id number] Acct: [id number] Name: GERRI GEORGES Rep #: [id number] : 1965 59 From: Toribio Huntley MD [...] has puncture wound daughter who is a manager student services is concerned this puncture was consistent with [...] Care Provider] - 1-2 Weeks Print Language: Cymraes Disposition Disposition: Home, Self Care What to do if you have Problems For any increased pain, shortness of breath, bleeding, nausea or vomiting, chest pain, or any unexpected problems, contact your Primary Care Provider. Call [facility] ([phone]) or report to the closest Emergency Room. Ca (more content not included)... Normal [facility] Comprehensive Metabolic Prof alvaro 03-19-2024 Albumin [Mass/Vol] 4.1 g/dL Normal 3.2-5.0 [facility] Comment on above: Order Comment: Order Date: 03/19/24 Order Info: [id number] - CMP Order Info: [id number] - LIPID Performed By: #### L 506.1000, L500.7310, L500.4050 #### [facility] [address], [address] Albumin/Globulin [Mass ratio] 1.1 {ratio} Normal 0.9-2.4 [facility] Comment on above: Order Comment: Order Date: 03/19/24 Order Info: [id number] - CMP Order Info: [id number] - LIPID Performed By: #### L 506.1000, L500.4100, L500.4050 #### [facility] [address] [place], [address] ALK P 120 U/L High 45-117 [facility] Comment on above: Order Comment: Order Date: 03/19/24 Order Info: [id number] - CMP Order Info: [id number] - LIPID Performed By: #### L 506.1000, L500.4100, L500.4050 #### [facility] [address] [place], [address] ALT [Catalytic activity/Vol] 25 U/L Normal 13-56 [facility] Comment on above: Order Comment: Order Date: 03/19/24 Order Info: [id number] - CMP Order Info: [id number] - LIPID Performed By: #### L 506.1000, L500.4100, L500.4050 #### [facility] [address] [place], [address] AST [Catalytic activity/Vol] 20 U/L Normal 15-37 [facility] Comment on above: Order Comment: Order Date: 03/19/24 Order Info: [id number] - CMP Order Info: [id number] - LIPID Performed By: #### L 506.1000, L500.4100, L500.4050 #### [facility] [address] [place], [address] Bilirubin [Mass/Vol] 0.60 mg/dL Normal 0.20-1.00 [facility] Comment on above: Order Comment: Order Date: 03/19/24 Order Info: [id number] - CMP Order Info: [id number] - LIPID Result Comment: For patients on eltrombopag therapy, use of Dimension [place] TBIL is not recommended. Performed By: #### L 506.1000, L500.4100, L500.4050 #### [facility] [address] [place], [address] BUN/CRE 19.0 RATIO Normal 10-20 [facility] Comment on above: Order Comment: Order Date: 03/19/24 Order Info: [id number] - CMP Order Info: [id number] - LIPID Performed By: #### L 506.1000, L500.4100, L500.4050 #### [facility] [address] [place], [address] CA,Total 10.1 mg/dL Normal 8.5-10.1 [facility] Comment on above: Order Comment: Order Date: 03/19/24 Order Info: [id number] - CMP Order Info: [id number] - LIPID Performed By: #### L 506.1000, L500.4100, L500.4050 #### [facility] [address] [place], [address] Chloride [Moles/Vol] 105 mmol/L Normal 98-107 [facility] Comment on above: Order Comment: Order Date: 03/19/24 Order Info: [id number] - CMP Order Info: [id number] - LIPID Performed By: #### L 506.1000, L500.4100, L500.4050 #### [facility] [address] [place], [address] CO2 [Moles/Vol] 26.0 mmol/L Normal 21.0-32.0 [facility] Comment on above: Order Comment: Order Date: 03/19/24 Order Info: [id number] - CMP Order Info: [id number] - LIPID Performed By: #### L 506.1000, L500.4100, L500.4050 #### [facility] [address] [place], [address] Creatinine [Mass/Vol] 0.90 mg/dL Normal 0.55-1.02 [facility] Comment on above: Order Comment: Order Date: 03/19/24 Order Info: 07 - CMP Order Info: [id number] - LIPID Result Comment: The validity of the calculated GFR GFRAA in patients over 70 years has not been determined. Clinical correlation is essential. Performed By: #### L 506.1000, L500.4100, L500.4050 #### [facility] [address] [place], [address] EST GFR - AA 83 mL/min Normal >60 [facility] Comment on above: Order Comment: Order Date: 03/19/24 Order Info: [id number] - CMP Order Info: [id number] - LIPID Result Comment: Afri can Indian GFR Calc Performed By: #### L 506.1000, L500.4100, L500.4050 #### [facility] [address] [place], [address] GAP 6 Normal 5-15 [facility] Comment on above: Order Comment: Order Date: 03/19/24 Order Info: 07 - CMP Order Info: [id number] - LIPID Performed By: #### L 506.1000, L500.4100, L500.4050 #### [facility] [address] [place], [address] GFR/1.73 sq M.predicted among non-blacks MDRD (S/P/Bld) [Vol rate/Area] 68 mL/min/{1.73_m2} Normal >60 [facility] Comment on above: Order Comment: Order Date: 03/19/24 Order Info: [id number] - CMP Order Info: [id number] - LIPID Result Comment: Non- GFR Calc Performed By: #### L 506.1000, L500.4100, L500.4050 #### [facility] [address] [place], [address] Globulin (S) [Mass/Vol] 3.6 g/dL Normal 2.2-4.2 [facility] Comment on above: Order Comment: Order Date: 03/19/24 Order Info: [id number] - CMP Order Info: [id number] - LIPID Performed By: #### L 506.1000, L500.4100, L500.4050 #### [facility] [address] [place], [address] Glucose [Mass/Vol] 96 mg/dL Normal 74-106 [facility] Comment on above: Order Comment: Order Date: 03/19/24 Order Info: [id number]- - CMP Order Info: [id number] - LIPID Performed By: #### L 506.1000, L500.4100, L500.4050 #### [facility] [address] [place], [address] Potassium [Moles/Vol] 4.2 mmol/L Normal 3.5-5.1 [facility] Comment on above: Order Comment: Order Date: 03/19/24 Order Info: 0786- - CMP Order Info: [id number] - LIPID Performed By: #### L 506.1000, L500.4100, L500.4050 #### [facility] [address] [place], [address] Sodium [Moles/Vol] 136 mmol/L Normal 136-145 [facility] Comment on above: Order Comment: Order Date: 03/19/24 Order Info: [id number] - CMP Order Info: [id number] - LIPID Performed By: #### L 506.1000, L500.4100, L500.4050 #### [facility] [address] [place], [address] T PROT 7.7 g/dL Normal 6.4-8.2 [facility] Comment on above: Order Comment: Order Date: 03/19/24 Order Info: 0786- - CMP Order Info: [id number] - LIPID Performed By: #### L 506.1000, L500.4100, L500.4050 #### [facility] [address] [place], [address] Urea nitrogen [Mass/Vol] 17 mg/dL Normal 7-18 [facility] Comment on above: Order Comment: Order Date: 03/19/24 Order Info: [id number]- - CMP Order Info: [id number] - LIPID Performed By: #### L 506.1000, L500.4100, L500.4050 #### [facility] [address] [place], [address] Lipid Profileon 03-19-2024 Cholesterol [Mass/Vol] 249 mg/dL High 200 [facility] Comment on above: Order Comment: Order Date: 03/19/24 Order Info: [id number]- - CMP Order Info: [id number] - LIPID Result Comment: <200 mg/dL Desirable 200-240 mg/dL Borderline >240 mg/dL High Risk Performed By: #### L 506.1000, L500.4100, L500.4050 #### [facility] [address] [place], [address] Cholesterol in HDL [Mass/Vol] 107 mg/dL Normal [facility] Comment on above: Order Comment: Order Date: 03/19/24 Order Info: [id number]- - CMP Order Info: [id number] - LIPID Result Comment: The drugs N-Acetylcysteine and Metamizole may falsely depress this assay. Reference Range HDL <40 mg/dL Low HDL Cholesterol HDL >or= 60 mg/dL High HDL Cholesterol Performed By: #### L 506.1000, L500.4100, L500.4050 #### [facility] [address] [place], [address] Cholesterol in LDL [Mass/Vol] 126 mg/dL Normal 0-130 [facility] Comment on above: Order Comment: Order Date: 03/19/24 Order Info: [id number] - CMP Order Info: [id number] - LIPID Performed By: #### L 506.1000, L500.4100, L500.4050 #### [facility] [address] [place], [address] Cholesterol in VLDL [Mass/Vol] 16 mg/dL Normal 5-40 [facility] Comment on above: Order Comment: Order Date: 03/19/24 Order Info: [id number] - CMP Order Info: [id number] - LIPID Performed By: #### L 506.1000, L500.4100, L500.4050 #### [facility] [address] [place], [address] Triglyceride [Mass/Vol] 81 mg/dL Normal [facility] Comment on above: Order Comment: Order Date: 03/19/24 Order Info: [id number] - [facility] Order Info: [id number] - LIPID Result Comment: The drugs N-Acetylcysteine and Metamizole may falsely depress this assay. Serum Triglycerides Reference Interval Normal <150 mg/dL Borderline high 150 - 199 mg/dL High 200 - 499 mg/dL Very High > or = 500 mg/dL Performed By: #### L 506.1000, L500.4100, L500.4050 #### [facility] [address] [place], [address] Vitamin D,25 Hydroxyon 03-19 Vitamin D 25-OH 34.0 ng/mL Normal [facility] Comment on above: Order Comment: Order Date: 03/19/24 Order Info: [id number] - VITD25 Result Comment: Mary min D 25(OH) Status Range Deficiency <20 ng/mL (50nmol/L) Insufficiency 20 - 30 ng/mL (50 - 75 nmol/L) Sufficiency 30 - 100 ng/mL (75 - 250 nmol/L) Toxicity >100 ng/mL (>250 nmol/L) Performed By: #### L 506.1000, L500.4100, L500.4050 #### [facility] [address] [place], [address] Absolute lymphocyte countOrd ered By: Adri Ambrocio on 08-16-2022 Lymphocytes Auto (Unsp spec) [#/Vol] 1.35 10*3/uL 0.83-4.51 [facility] Basophil percentageOrdered B y: Adri Ambrocio on 08-16-2022 Basophils/100 WBC (Bld) 0.6 % 0-1 [facility] Bilirubin [Mass/Vol] 0.50 mg/dL 0.20-1.00 [facility] Comment on above: For patients on eltr ombopag therapy, use of Dimension [place] TBIL is not recommended. Chloride [Moles/Vol] 107 mmol/L 98-107 [facility] Cholesterol [Mass/Vol] 251 mg/dL <200 [facility] Comment on above: <200 mg/dL Desirable 200-240 mg/dL Borderline >240 mg/dL High Risk Eosinophils/100 WBC (Bld) 3.9 % 0-5 [facility] Glucose [Mass/Vol] 95 mg/dL 74-106 [facility] Neutrophils (Bld) [#/Vol] 2.8 10*3/uL 2.0-7.7 [facility] Neutrophils/100 WBC (Bld) 57.6 % 47-70 [facility] Potassium [Moles/Vol] 4.5 mmol/L 3.5-5.1 [facility] Protein [Mass/Vol] 7.3 g/dL 6.4-8.2 [facility] Sodium [Moles/Vol] 138 mmol/L 136-145 [facility] Triglyceride [Mass/Vol] 82 mg/dL <199 [facility] Comment on above: The drugs N-Acetylcy steine and Metamizole may falsely depress this assay.Serum Triglycerides Reference Interval Normal <150 mg/dL Borderline high 150 - 199 mg/dL High 200 - 499 mg/dL Very High > or = 500 mg/dL WBC (Bld) [#/Vol] 4.9 10*3/uL 4.4-11.0 [facility] Blood erythrocytes count (nu mber/volume)Ordered By: Adri Ambrocio on 08-16-2022 RBC (Bld) [#/Vol] 4.66 10*6/uL 4.2-5.4 [facility] Blood hemoglobin measurement (mass/volume)Ordered By: Adri Ambrocio on 08-16-2022 Hemoglobin (Bld) [Mass/Vol] 14.8 g/dL 12.0-15.0 [facility] Blood lymphocytes/100 leukoc ytesOrdered By: Adri Ambrocio on 08-16-2022 Lymphocytes/100 WBC (Bld) 27.8 % 19-41 [facility] Blood monocytes/100 leukocyt esOrdered By: Adri Ambrocio on 08-16-2022 Monocytes/100 WBC (Bld) 9.9 % 0-10 [facility] Blood platelet mean volumeOr dered By: Adri Ambrocio on 08-16-2022 Platelet mean volume (Bld) [Entitic vol] 10.0 fL 6.2-12.0 [facility] Determination of erythrocyte mean corpuscular volume (MCV)Ordered By: Adri Ambrocio on 08-16-2022 MCV (RBC) [Entitic vol] 97.0 fL 81-99 [facility] Hematocrit Auto (Bld) [Volum e fraction]Ordered By: Adri Ambrocio on 08-16-2022 Hematocrit (Bld) [Volume fraction] 45.2 % 37-47 [facility] - Chemistry and C hemistry - challengeOrdered By: Adri Ambrocio on 08-16-2022 ALP [Catalytic activity/Vol] 108 U/L 45-117 [facility] ALT [Catalytic activity/Vol] 30 U/L 13-56 [facility] CO2 [Moles/Vol] 28.0 mmol/L 21.0-32.0 [facility] Globulin (S) [Mass/Vol] 3.4 g/dL 2.2-4.2 [facility] Urea nitrogen/Creatinine [Mass ratio] 18.1 mg/mg 10-20 [facility] - Hematology and Cell countsOrdered By: Adri Ambrocio on 08-16-2022 Erythrocyte distribution width (RBC) [Entitic vol] 47.4 fL 35.1-43.9 [facility] Erythrocyte distribution width (RBC) [Ratio] 13.2 % 11.6-14.6 [facility] Immature granulocytes/100 WBC (Bld) 0.200 % 0.0-0.9 [facility] Comment on above: IG% - Immature Granu locytes (promyelocytes, myelocytes and metamyelocytes) > 1% indicates that a LEFT SHIFT is Present. MCH (RBC) [Entitic mass] 31.8 pg 27.0-32.0 [facility] Nucleated RBC/100 WBC (Bld) [Ratio] 0 % 0-5 [facility] MCHC Auto (RBC) [Mass/Vol]Or dered By: Adri Ambrocio on 08-16-2022 MCHC (RBC) [Mass/Vol] 32.7 g/dL 32-36 [facility] No Panel InformationOrdered By: Adri Ambrocio on 08-16-2022 Estimated GFR (MDRD) Amer 91 mL/min >60 [facility] Comment on above: GFR Calc Estimated GFR (MDRD) Non-Af Amer 75 mL/min >60 [facility] Comment on above: Non- GFR Calc Thyroid Stimulating Hormone (TSH) 1.49 uIU/mL 0.358-3.74 [facility] Platelets bldOrdered By: Christian Ambrocio on 08-16-2022 Platelets (Bld) [#/Vol] 283 10*3/uL 150-450 [facility] Serum or plasma albumin maria antonia urement (mass/volume)Ordered By: Adri Ambrocio on 08-16-2022 Albumin [Mass/Vol] 3.9 g/dL 3.2-5.0 [facility] Serum or plasma albumin/glob ulin mass ratioOrdered By: Adri Ambrocio on 08-16-2022 Albumin/Globulin [Mass ratio] 1.1 {ratio} 0.9-2.4 [facility] Serum or plasma calcium maria antonia urement (mass/volume)Ordered By: Adri Ambrocio on 08-16-2022 Calcium [Mass/Vol] 9.4 mg/dL 8.5-10.1 [facility] Serum or plasma cholesterol in HDL measurement (mass/volume)Ordered By: Adri Ambrocio on 08-16-2022 Cholesterol in HDL [Mass/Vol] 94 mg/dL >40 [facility] Comment on above: The drugs N-Acetylcy steine and Metamizole may falsely depress this assay. Reference Range HDL <40 mg/dL Low HDL Cholesterol HDL >or= 60 mg/dL High HDL Cholesterol Serum or plasma cholesterol in VLDL measurement (mass/volume)Ordered By: Adri Ambrocio on 08-16-2022 Cholesterol in VLDL [Mass/Vol] 16 mg/dL 5-40 [facility] Serum or plasma creatinine m easurement (mass/volume)Ordered By: Adri Ambrocio on 08-16-2022 Creatinine [Mass/Vol] 0.83 mg/dL 0.55-1.02 [facility] Comment on above: The validity of the calculated GFR & GFRAA in patients over 70 years has not been determined. Clinical correlation is essential. Serum or plasma low density lipoprotein (LDL) cholesterol measurement (mass/volume)Ordered By: Adri Ambrocio on 08-16-2022 Cholesterol in LDL [Mass/Vol] 141 mg/dL 0-130 [facility] Serum or plasma urea nitroge n measurement (mass/volume)Ordered By: Adri Ambrocio on 08-16-2022 Urea nitrogen [Mass/Vol] 15 mg/dL 7-18 [facility] Thin prep Papanicolaou smear with manual screeningOrdered By: Adri Ambrocio on 08-16-2022 Thin prep Papanicolaou smear with manual screening 21 U/L 15-37 [facility] Thin prep Papanicolaou smear with manual screening 3 5-15 [facility] Whole blood hemoglobin A1c/t otal hemoglobin ratio (mass fraction)Ordered By: Adri Ambrocio on 08-16-2022 HbA1c (Bld) [Mass fraction] 4.9 % 3.8-5.6 [facility] Comment on above: Normal < 5.7 % Predi abetic 5.7 - 6.4 % Diabetic >or= 6.5 % Please note range changes. Vikram 06-29-2018 [facility] HNO ID: [id number] Author: Mammography Coordinator Service: ? Author Type: Physician Type: Letter Filed: 07/02/2018 11:32 PM Note Text: [facility] Robert. [address] [place] [address] June 29, 2018 PID: [id number] Gerri Georges [id number] [id number] Dear Ms. Georges, We are pleased to [...] report will be kept on file at [facility] as part of your permanent medical record and are available for your continuing care. Thank you for allowing us to help in meeting your health care needs. Sincerely, Dr. Moran Interpreting Radiologist [facility] (Normal over 40) Normal [facility] SCREENINGon 06-29-2018 [facility] SCREENING * * *Final Report* * * DATE OF EXAM: Jun 29 2018 1:04PM [facility] 0581 - [facility] SCREENING / PROCEDURE REASON: multiple diagnoses * * * * Physician Interpretation * * * * RESULT: #[id number] - [facility] SCREENING BILATERAL DIGITAL SCREENING MAMMOGRAM WITH CAD: 06/29/2018 HISTORY: Multiple Diagnoses /Screening Mammogram - patient reports no symptoms. RESULT: TECHNIQUE: The study was acquired using full field digital technology and interpreted from soft copy. Current study was also evaluated with a Computer Aided Detection (CAD). Comparison is made to exam dated: 05/16/2017 mammogram - [facility]. The tissue of both breasts is heterogeneously dense. This may lower the sensitivity of mammography. No significant masses, calcifications, or other findings are seen in either breast. There has been no significant interval change. IMPRESSION: NEGATIVE There is no mammographic evidence of malignancy. A 1 year screening mammogram is recommended. Sachi Moran M.D., mc/karyn:06/29/2018 13:20:05 Receivable Manager(s): RT Maddy(R)(M), [facility] letter sent: Normal over 40 Mammogram [...] Health, Family Medicine, and Medical/Surgical Oncology, the [facility] has carefully reviewed the data and [...] their providers when to stop screening mammograms. Cardiology Teacher: Karyn Transcribe Date/Time: Jun 29 2018 1:04P Dictated by: SACHI HART MD This examination was interpreted and the report reviewed and electronically signed by: SACHI HART MD on Jun 29 2018 1:20PM EST [id number] CN Normal [facility] Vital Signs Date Time Vital Sign Value Performing Clinician Armen kelly 01-12-2025 17:56-0400 Body weight 94.[address] Soledad Nuñez MD Work Phone: [facility] 01-12-2025 17:20-0400 Body height 172.[address] Soledad Nuñez MD Work Phone: [facility] 01-12-2025 17:20-0400 Body mass index (BMI) [Ratio] 31.6 kg/m2 Dr. Soledad Nuñez MD Work Phone: [facility] 01-12-2025 17:20-0400 Body temperature 98.1 [degF] Dr. Soledad Nuñez MD Work Phone: [facility] 01-12-2025 17:20-0400 Diastolic blood pressure 77 mm[Hg] Dr. Soledad Nuñez MD Work Phone: [facility] 01-12-2025 17:20-0400 Heart rate 69 /min Dr. Soledad Nuñez MD Work Phone: [facility] 01-12-2025 17:20-0400 Respiratory rate 18 /min Dr. Soledad Nuñez MD Work Phone: 3(931)659-961153 [place] [address] 01-12-2025 17:20-0400 SaO2% (BldA) [Mass fraction] 99 % Dr. Soledad Nuñez MD Work Phone: 0(945)693-360553 [place] [address] 01-12-2025 17:20-0400 Systolic blood pressure 127 mm[Hg] Dr. Soledad Nuñez MD Work Phone: 1(045)484-044753 [place] [address] 01-09-2025 17:47-0400 Body temperature 98.2 [degF] Dr. Soledad Nuñez MD Work Phone: 1(560)314-384853 [place] [address] 01-09-2025 17:47-0400 Diastolic blood pressure 72 mm[Hg] Dr. Soledad Nuñez MD Work Phone: 7(984)957-528153 [place] [address] 01-09-2025 17:47-0400 Heart rate 54 /min Dr. Soledad Nuñez MD Work Phone: 8(732)007-752853 [place] [address] 01-09-2025 17:47-0400 Respiratory rate 18 /min Dr. Soledad Nuñez MD Work Phone: 6(696)271-909378 [place] [address] 01-09-2025 17:47-0400 SaO2% (BldA) [Mass fraction] 100 % Dr. Soledad Nuñez MD Work Phone: 2(598)962-469953 [place] [address] 01-09-2025 17:47-0400 Systolic blood pressure 145 mm[Hg] Dr. Soledad Nuñez MD Work Phone: 9(393)640-398053 [place] [address] 01-09-2025 16:19-0400 Body height 172.[address] Soledad Nuñez MD Work Phone: 8(213)086-375553 [place] [address] 01-09-2025 16:19-0400 Body mass index (BMI) [Ratio] 31.1 kg/m2 Dr. Soledad Nuñez MD Work Phone: [facility] 01-09-2025 16:19-0400 Body weight 93.[address] Soledad Nuñez MD Work Phone: [facility] 12-29-2022 11:02-0400 Body temperature 97.1 [degF] DO Adri Lolly Work Phone: [facility] 12-29-2022 11:02-0400 Diastolic blood pressure 68 mm[Hg] DO Adri Lolly Work Phone: [facility] 12-29-2022 11:02-0400 Heart rate 52 /min DO Adri Lolly Work Phone: [facility] 12-29-2022 11:02-0400 Respiratory rate 16 /min DO Adri Lolly Work Phone: [facility] 12-29-2022 11:02-0400 SaO2% (BldA) [Mass fraction] 100 % DO Adri Lolly Work Phone: [facility] 12-29-2022 11:02-0400 Systolic blood pressure 115 mm[Hg] DO Adri Lolly Work Phone: [facility] 12-29-2022 09:32-0400 Body height 172.72 cm DO Adri Lolly Work Phone: [facility] 12-29-2022 09:32-0400 Body mass index (BMI) [Ratio] 29.9 kg/m2 DO Adri Lolly Work Phone: [facility] 12-29-2022 09:32-0400 Body weight 89.3 kg DO Adri Lolly Work Phone: [facility] 11-03-2022 11:29-0400 Body mass index (BMI) [Ratio] 28.1 kg/m2 DO Adri Lolly Work Phone: [facility] 11-03-2022 11:29-0400 Body weight 83.91 kg DO Adri Lolly Work Phone: [facility] Encounters Encounter Date Encounter Type Care Provider Facility Start: 01-12-2025 End: 01-12-2025 Emergency department patient visit Dr. Soledad Nuñez MD Work Phone: -Emergency Department Work Phone: Start: 01-12-2025 End: 01-12-2025 [facility] Facility:[facility] Start: 01-09-2025 End: 01-09-2025 Emergency department patient visit Dr. Soledad Nuñez MD Work Phone: -Emergency Department Work Phone: Start: 01-09-2025 End: 01-09-2025 Emergency department patient visit [facility] Start: 03-19-2024 End: 03-19-2024 [facility] Start: 02-28-2024 End: 03-04-2024 ambulatory Janneth Dale MD Work Phone: Internal [facility] [address] [place] [address] Start: 03-22-2023 ambulatory Janneth Mann Work Phone: Internal Medicine [facility] Start: 12-29-2022 Non-patient / Non-visit DO Christian Ambrocio Work Phone: [facility] Start: 12-29-2022 End: 12-29-2022 Admission to same day surgery center DO Adri Vaughner Work Phone: [facility]Endoscopy Work Phone: Start: 12-29-2022 End: 12-29-2022 ambulatory DO Adri Ambrocio Work Phone: [facility] Work Phone: Start: 11-03-2022 Non-patient / Non-visit DO Christian Ambrocio Work Phone: [facility] Work Phone: Start: 10-26-2022 End: 10-26-2022 ambulatory [facility] Work Phone: Start: 10-26-2022 End: 10-26-2022 Patient encounter procedure [facility]-Outpatient Breast Imaging Work Phone: Start: 08-16-2022 End: 08-16-2022 ambulatory [facility] Work Phone: Start: 08-16-2022 End: 08-16-2022 Patient encounter procedure [facility]-Laboratory, Vin Gomez Start: 04-07-2022 ambulatory Janneth Mann Work Phone: Internal Medicine [address] [place] Start: 06-29-2018 Encounter for genera l adult medical examination without abnormal findings [facility] Start: 06-29-2018 End: 06-29-2018 Patient encounter procedure [facility] Procedures Date Procedure Procedure Detail Performing Clinician Start: 12-29-2022 Colonoscopy DO Adri Ambrocio Work Phone: Start: 10-26-2022 Screening mammography Start: 03-09-2021 Lipid 1996 panel - S donald or Plasma Janneth Dale MD Work Phone: Start: 02-22-2021 Mammography Janneth kaur MD Work Phone: Start: 01-29-2019 History of laser ass isted in situ keratomileusis Hx of LASIK Janenth Dale MD Work Phone: Start: 07-04-2017 Colonoscopy Janneth kaur MD Work Phone: Plan of Treatment Date Care Activity Detail Author Start: 12-20-2026 Urine microalbumin profile [facility] Start: 03-09-2026 Lipid 1996 panel - S donald or Plasma Lipid Screening [facility] Start: 03-09-2026 Lipid panel Lipid Screening [facility] Start: 03-09-2026 LIPID SCREEN LIPID SCREEN [facility] Start: 04-30-2025 HPV TESTING HPV TESTING [facility] Start: 04-30-2025 PAP TESTING PAP TESTING [facility] Start: 04-30-2025 Screening for malign ant neoplasm of cervix Cervical Cancer Screening [facility] Start: 01-09-2025 [facility] Start: 03-09-2024 DIABETES SCREEN DIABETES SCREEN [facility] Start: 03-09-2024 Diabetes Screening Diabetes Screenin g [facility] Start: 12-31-2023 Covid-19 Vaccine ( season) Covid-19 Vaccine () [facility] Start: 12-31-2023 Influenza vaccination Influenza Vacc ine (#1) [facility] Start: 12-30-2022 Covid-19 Vaccine ( season) Covid-19 Vaccine () [facility] Start: 12-30-2022 Influenza vaccination Influenza Vacc ine (#1) [facility] Start: 12-29-2022 Patient discharge [facility] Start: 07-04-2022 Colonoscopy COLONOSCOPY [facility] Start: 07-04-2022 COLORECTAL CANCER SCREENING COLORECTAL CANCER SCREENING [facility] Start: 07-04-2022 Screening for malign ant neoplasm of colon [facility] Start: 05-01-2022 Depression Assessment Depression Ass essment [facility] Start: 02-22-2022 Mammography [facility] Start: 02-22-2022 Screening for malign ant neoplasm of breast Mammogram Screening [facility] Start: 12-30-2021 Influenza vaccination INFLUENZA (#1) [facility] Start: 05-04-2021 COVID-19 VACCINE (4 - Booster for Pfizer series) COVID-19 VACCINE (4 - Booster for Pfizer series) [facility] Start: 05-01-2021 DEPRESSION ASSESSMENT DEPRESSION ASS ESSMENT [facility] Start: 2009 COLOGUARD (FIT-DNA) COLOGUARD (FIT-D NA) [facility] Start: [address] COLONOGRAPHY [facility] Start: 2009 FECAL OCCULT BLOOD FECAL OCCULT BLOO D [facility] Start: 2009 Screening for malign ant neoplasm of colon [facility] Start: 2009 SIGMOIDOSCOPY SIGMOIDOSCOPY [facility] Start: 1982 Anxiety Screening Anxiety Screening [facility] Start: 1982 Depression Screening Depression Scre ening [facility] Start: 1964 HEPATITIS B (1 of 3 - 3-dose series) HEPATITIS B (1 of 3 - 3-dose series) [facility] Start: 1965 Hepatitis B Vaccine (1 of 3 - 3-dose series) Hepatitis B Vaccine (1 of 3 - 3-dose series) [facility] Colonoscopy [facility] End: 03-29-2025 DBT Breast - bilateral screening DORIAN SCREENING W DARIUS Radiology Routine Encounter for screening mammogram for breast cancer 1 Occurrences starting 02/28/2024 until 03/29/2025 [facility] Work Phone: Comment on above: 1 Occurrences starti ng 02/28/2024 until 03/29/2025 End: 05-07-2023 DORIAN SCREENING W DARIUS DORIAN SCREENING W DARIUS Radiology Routine Encounter for screening mammogram for breast cancer 1 Occurrences starting 04/07/2022 until 05/07/2023 [facility] Work Phone: Comment on above: 1 Occurrences starti ng 04/07/2022 until 05/07/2023 End: 04-20-2024 DORIAN SCREENING W DARIUS DORIAN SCREENING W DARIUS Radiology Routine Encounter for screening mammogram for breast cancer 1 Occurrences starting 03/22/2023 until 04/20/2024 [facility] Work Phone: Comment on above: 1 Occurrences starti ng 03/22/2023 until 04/20/2024 Patient Education ED Animal Bite (General) ED Hypertension, To Be Confirmed [facility] Work Phone: Patient referral [facility] Work Phone: Immunizations Immunization Date Immunization Notes Care Provider El[facility] 01-12-2025 rabies vaccine, for intramuscular injection Dr. Soledad Nuñez MD Work Phone: [facility] 01-09-[address] Lizette Nuñez MD Work Phone: [facility] 01-09-2025 rabies vaccine, for intramuscular injection Dr. Soledad Nuñez MD Work Phone: [facility] 02-12-2022 influenza virus vacc ine, unspecified formulation Janneth Dale MD Work Phone: [facility] 03-01-2021 influenza, injectabl e, quadrivalent, contains preservative Janneth Dale MD Work Phone: [facility] 06-23-2020 zoster vaccine recombinant Janneth Dale MD Work Phone: [facility] Work Phone: 04-06-2020 zoster vaccine recombinant Janneth Dale MD Work Phone: [facility] Work Phone: 12-20-2016 tetanus toxoid, redu joycelyn diphtheria toxoid, and acellular pertussis vaccine, adsorbed Janneth Dale MD Work Phone: [facility] 05-21-2012 influenza virus vacc ine, unspecified formulation Janneth Dale MD Work Phone: [facility] Payers Date Payer Category Payer Unknown [id number] 2024 Self-pay 2024 Unknown [id number] 2014 Unknown [id number] 1964 Unknown [id number] Unknown [id number] Unknown [id number] Unknown [id number] Social History Date Type Detail Facility Start: 02-11-2013 End: 01-09-2025 Tobacco smoking status NHIS Never smoked tobacco [facility] Start: 02-11-2013 Tobacco use and exposure Smokeless tobacco non-user [facility] Start: 03-09-2021 Alcohol intake Current drinker of alcohol (finding) [facility] Start: 04-04-2020 End: 03-09-2021 Alcohol intake [facility] Start: 02-24-2020 History SDOH Alcohol Frequency 4 [facility] Start: 02-24-2020 End: 02-22-2021 History SDOH Alcohol Std Drinks 1 [facility] Start: 02-24-2020 End: 02-22-2021 History SDOH Social Connections Get Together 2 [facility] Start: 02-24-2020 History SDOH Social Connections Living 3 [facility] Start: 02-24-2020 History SDOH Financial 5 [facility] Start: 02-24-2020 Education 17 [facility] Start: 1965 Sex Assigned At Not on file [facility] Start: 1965 Sex Assigned At Female [facility] Start: 12-27-2022 Tobacco smoking status NHIS Unknown if ever smoked [facility] Start: 02-24-2020 End: 04-04-2020 Social connection and isolation panel [facility] Do you belong to any clubs or organizations such as scientologist groups, unions, fraternal or athletic groups, or school groups? No [facility] Are you now , , , , never or living with a partner? [facility] How often to you hav e a drink containing alcohol? 2-3 time sa week [facility] How many standard dr inks containing alcohol do you have on a typical day? 1 or 2 [facility] How often do you hav e 6 or more drinks on 1 occasion? Never [facility] How hard is it for y ou to pay for the very basics like food, housing, medical care, and heating Not hard at all [facility] Do you feel stress - tense, restless, nervous, or anxious, or unable to sleep at night because your mind is troubled all the time - these days [OSQ] To some extent [facility] (I/We) worried christine er (my/our) food would run out before (I/we) got money to buy more. Never true [facility] Start: 02-24-2020 Gender identity Identifies as female gender (finding) [facility] Start: 02-24-2020 Sexual orientation Heterosexual (finding) [facility] Goals Date Patient Goal Desired Activity /State Mental Status Date Assessment Result Facility 12-29-2022 Cognitive function Level Of Cons ciousness Follows Commands;Drowsy [facility] Work Phone: 12-29-2022 Cognitive function Voice/Name [facility] Work Phone: Clinical Notes 01-25-2019 to 01-09-2025 Note Date & Type Note Facility 01-09-2025 Discharge summary [facility] 01-09-2025 Discharge summary Note Date/Time January 09, 2025 4:42pm [facility] Medical Records Department [address] [place] [address] Emergency Department Summary 01/09/25 MR#: [id number] Acct: [id number] Name: GERRI GEORGES Rep #:[id number] : 1965 59 From: Toribio Huntley MD PCP: Dr. Soledad Nuñez MD Status:ND E ER Location: ED HPI History of [...] Prior similar symptoms: No Recent Illness/Hospitalization: [facility] Medical History Wears glasses Post-menopausal Alcohol use [...] has puncture wound daughter who is a manager student services is concerned this puncture was consistent with [...] Care Provider] - 1-2 Weeks Print Language: Cymraes Disposition Disposition: Home, Self Care What to do if you have Problems For any increased pain, shortness of breath, bleeding, nausea or vomiting, chestpain, or any unexpected problems, contact your Primary Care Provider. Call [facility] ([phone]) or report to the closest Emergency Room. Call 911 if necessary. 01/09/25 1642 <Electronically signed by Toribio Huntley MD> Cosigner Signature (if applicable): CC: Dr. Soledad Nuñez MD ~ Signed [facility] Work Phone: 1(171) 909-677710-30-2024 NotePatient Outreach (INTMMN) GERRI GEORGES ([id number]) 1965 F Date Time Provider Department 02/28/24 JANNETH DALE INTMMN During your visit today, we recorded the following information about you: Allergies As of Date: 02/28/2024 (No Known Allergies) Date Reviewed: 03/09/2021 Reviewed by: Marisela Hernandez OD - Fully Assessed Visit Diagnosis:Encounter for screening mammogram for breast cancer [Z12.31] Order(s):[facility] SCREENING W DARIUS [[id number]] Order #: [id number] FUTURE Prescriptions as of 03/04/2024 - cholecalciferol, Vitamin D3, (VITAMIN D3) 1,250 mcg (50,000 unit) cap capsule Take 1 capsule by mouth one time a week. - [place]-3 Fatty Acids-Vitamin E (FISH OIL) 1,000 mg [...] of LASIK [Z98.890] 01/29/2019 Encounter Status:Closed by Tiller [employer] BVCLAIRE on 03/04/24[facility] 03-22-2023 NotePatient Outreach (INTMMN) GERRI GEORGES ([id number]) 1965 F Date Time Provider Department 03/22/23 JANNETH DALE During your visit today, we recorded the following information about you: Allergies As of Date: 03/22/2023 (No Known Allergies) Date Reviewed: 03/09/2021 Reviewed by: Marisela Hernandez OD - Fully Assessed Visit Diagnosis:Encounter for screening mammogram for breast cancer [Z12.31] Order(s):[facility] SCREENING W DARIUS [[id number]] Order #: [id number] FUTURE Prescriptions as of 03/27/2023 - cholecalciferol, Vitamin D3, (VITAMIN D3) 1,250 mcg (50,000 unit) cap capsule Take 1 capsule by mouth one time a week. - [place]-3 Fatty Acids-Vitamin E (FISH OIL) 1,000 mg [...] of LASIK [Z98.890] 01/29/2019 Encounter Status:Closed by Tiller, PRODUSER on 03/27/23[facility] 12-29-2022 Procedure [facility]08-31-2023 Procedure note [facility]09-27-2019 History of Past illness Narrative* Problem Noted Date Resolved Date Metrorrhagia 01/25/2019 documented as of this encounter (statuses as of 04/11/2022) [facility]09-27-2019 History of Past illness Narrative* Problem Noted Date Diagnosed Date Resolved Date Metrorrhagia 01/25/2019 documented as of this encounter (statuses as of 03/27/2023) [facility] Diagnosis Encounter for screening mammogram for breast cancer documented in this encounter [facility] noteNo assessment information available[facility] Work Phone: Evaluation note* Diagnosis Onset Date Resolution Status Encounter for screening for malignant neoplasm of colo n acute [facility] Work Phone: evaluation note* Diagnosis Encounter for screening mammogram for breast cancer documented [facility] Author Cheko Friend [facility] December 29, 2022 10:15am Note Date/Time December 29, 2022 10 :15am [facility] Medical Records Department [address] [place] [address] History & Physical Exam 12/29/22 1013 MR#: [id number] Acct: [id number] Name: ROCIOGERRI ARIELLA Rep #:[id number] : 1965 57 From: Cehko Friend DO PCP: Adri Ambrocio DO Status:REG S DC Location: [address] [facility] - General General Date of Admission: 12/29/22 [...] take any medicines on a daily basis. [facility] Medical History (Updated 12/27/22 @ 09:33 by [...] Adri Ambrocio DO; Cheko Kirby DO~ Signed [facility] Work Phone: Reason for referral (narrative)* Diagnostic Procedure Only (Routine) - Pending Review Specialty Diagnoses / Procedures Referred By Kayce lara Referred To Contact [facility] Diagnoses Encounter for screening mammogram for breast cancer Procedures DORIAN SCREENING W DARIUS SCREENING DIGITAL BREAST TOMOSYNTHESIS BI SCREENING MAMMOGRAPHY BI 2-VIEW BREAST INC Janneth Flores MD [address] [place] [address] Br Imaging [place] [address] Referral ID Status Reason Start Date Expiration Date Visits Requested Visits Authorized [id number] Pending Review Auto-Generat ed Referral 04/07/2022 05/07/2023 1 1 [facility] for referral (narrative)* Diagnostic Procedure Only (Routine) - Pending Review Specialty Diagnoses / Procedures Referred By Kayce lara Referred To Contact [facility] Diagnoses Encounter for screening mammogram for breast cancer Procedures DORIAN SCREENING W DARIUS SCREENING DIGITAL BREAST TOMOSYNTHESIS BI SCREENING MAMMOGRAPHY BI 2-VIEW BREAST INC Janneth Flores MD [address] [place] [address] Br Imaging [address] [address] Referral ID Status Reason Start Date Expiration Date Visits Requested Visits Authorized [id number] Pending Review Auto-Generat ed Referral 04/20/2024 1 1 [facility] for referral (narrative)* Diagnostic Procedure Only (Routine) - New Request Specialty Diagnoses / Procedures Referred By Kayce lara Referred To Contact [facility] Diagnoses Encounter for screening mammogram for breast cancer Procedures DORIAN SCREENING W DARIUS SCREENING DIGITAL BREAST TOMOSYNTHESIS BI SCREENING MAMMOGRAPHY BI 2-VIEW BREAST INC CAD Janneth Dale MD [address] [place] [address] Br Imaging [address] [place] [address] Referral ID Status Reason Start Date Expiration Date Visits Requested Visits Authorized [id number] New Request Auto-Generat ed Referral 03/29/2025 1 1 [facility] for referral (narrative)No reason for referral information availableW[facility] Work Phone: Summary Purpose Family History No Family History Records FoundNo Family History Records FoundNo Family History Records FoundNo Family History Records Found Advance Directives No Advanced Directives Records Found Advance Directive Response Recorded Date/ Time Living Will No December 27 3 9:33am Power of Specialty Therapist No December 27 023 9:33am Advance Directive Response Recorded Date/ Time Do you have a Healthcare Power of Specialty Therapist? Yes January 09, 2025 4:30pm Chief Complaint [...] section and content) DATE CREATED AUTHOR 07/04/2018 [facility] DATE CREATED AUTHOR AUTHOR'S ORGANIZ ATION 03/04/2024 [facility] DATE CREATED AUTHOR AUTHOR'S ORGANIZ ATION 01/12/2025 [facility] DATE CREATED AUTHOR AUTHOR'S ORGANIZ ATION 01/15/2025 [facility] Source Comments (unrecognize d section and content) In the event this informatio n is protected by the Federal Confidentiality of Alcohol and Drug Abuse Patient Records regulations: The Federal rules restrict any use of the information to criminally investigate or prosecute any alcohol or drug abuse patient.[facility] the event this information is protected by the Federal Confidentiality of Alcohol and Drug Abuse Patient Records regulations: The Federal rules restrict any use of the information to criminally investigate or prosecute any alcohol or drug abuse patient.[facility] the event this information is protected by the Federal Confidentiality of Alcohol and Drug Abuse Patient Records regulations: The Federal rules restrict any use of the information to criminally investigate or prosecute any alcohol or drug abuse patient.[facility] Care Teams (unrecognized sec tion and content) Team Status: Active Member Role Status Dates Adri Ambrocio , DO Primary Care Provider Active Team Status: Active Member Role Status Dates Adri Ambrocio , DO Primary Care Provider Active Angie Olvera [...] Inactive Member Role Status Dates Adri Ambrocio DO Primary Care Provider, Referring Provider Active Dr. 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 [facility]. provides no warranty or guarantee of the accuracy or completeness of information in this document.
== END | disposition home or self-care (01) ==
PROVIDERS: PCP Family Medicine; Visit Provider Emergency Medicine
DX: Z20.3 Contact with and (suspected) exposure to rabies (principal); Z23 Encounter for immunization
CPT/HCPCS: 90675; 96372

== ENCOUNTER → 2025-01-23 | Outpatient (CLI) | payer OTHER, SELFPAY ==
[2025-01-23 11:44] VITALS: BP 114/73; PULSE 59; RESP 14; O2SAT 100; BMI 31.4
--- NOTE | 2025-01-23 12:32 | ED.RN ---
pt did not want the vaccination in her rt deltoid.
--- NOTE | 2025-01-23 12:33 | ED.RN ---
rt before vaccination given pt changed her mind and agreed to rt deltoid.
[2025-01-23 12:37] VITALS: BP 124/72; PULSE 98; RESP 16; TEMP 36; O2SAT 99
== END | disposition home or self-care (01) ==
LOC: ED 13:40
PROVIDERS: PCP Family Medicine; Visit Provider Emergency Medicine
DX: Z23 Encounter for immunization (principal)
CPT/HCPCS: 90675; 96372

== ENCOUNTER → 2025-03-06 | Outpatient (CLI) | payer OTHER, SELFPAY ==
--- NOTE | 2025-03-06 10:57 | BI_ITS ---
EXAM: BI/SCRN MAMM (CAD)W/DARIUS BILAT
[2025-03-06 11:17] LABS: Hematocrit 41.6 % (37-47); Hemoglobin 14.4 g/dL (12.0-15.0); Immature Granulocytes Count 0.030 X10^3/uL (0.0-0.0); Mean Corp Hgb Conc 34.6 g/dL (32-36); Mean Corpuscular Volume 93.7 fL (81-99); Mean Platelet Vol. 9.2 fl (6.2-12.0); NRBC Flagged by Analyzer 0 % (0-5); Platelet Count 292 K/mm3 (150-450); RBC Distribution Width CV 12.9 % (11.6-14.6); RBC Distribution Width SD 44.8 fl (35.1-43.9); Red Blood Count 4.44 M/mm3 (4.2-5.4); White Blood Count 5.5 K/mm3 (4.4-11.0)
[2025-03-06 12:16] LABS: AST(SGOT) 31 U/L (<=31); Alanine Aminotransfer ALT/SGPT 41 U/L (<=34); Albumin, Serum 4.3 g/dL (3.4-4.8); Alkaline Phosphatase 104 U/L (35-104); Anion Gap 10 (5-15); BUN 16 mg/dL (4-19); BUN/Creat Ratio 20.5 RATIO (10-20); Calcium,Total 9.8 mg/dL (7.6-11.0); Carbon Dioxide 27.5 mmol/L (21.0-32.0); Chloride 103 mmol/L (98-108); Cholesterol 195 mg/dL (<=200); Globulin 2.8 g/dL (2.2-4.2); Glucose 103 mg/dL (70-99); Low Density Lipoprotein Calc. 110 mg/dL; Potassium 4.4 mmol/L (3.3-5.1); Triglycerides 61 mg/dL; Very Low Density Lipoprotein 12 mg/dL (5-40); Vitamin D,25 Hydroxy 37.8 ng/mL (30-100); cholesterol:hdl ratio screen 2.65
[2025-03-07 10:28] LABS: Hepatitis B Surface Antigen Nonreactive (Nonreactive); Hepatitis C Antibody Nonreactive (Nonreactive)
== END | disposition home or self-care (01) ==
LOC: OPBI 10:52
PROVIDERS: PCP Family Medicine; Referring Provider Family Medicine; Visit Provider Family Medicine
DX: Z12.31 Encounter for screening mammogram for malignant neoplasm of breast (principal); E55.9 Vitamin D deficiency, unspecified; E78.2 Mixed hyperlipidemia; R73.09 Other abnormal glucose; R79.89 Other specified abnormal findings of blood chemistry
CPT/HCPCS: 36415; 77063; 77067; 80053; 80061; 82306; 83036; 85025; 86706; 86803; 87340

== ENCOUNTER → 2025-03-10 | Outpatient (CLI) | payer OTHER, SELFPAY ==
--- NOTE | 2025-03-10 08:22 | US_ITS ---
PROCEDURE: BREAST LIMITED UNILATERAL 03/10/2025 REASON FOR EXAM: F, Age 59 y/o , ABN MAMM COMPARISON: Mammogram dated 03/06/2025 and 10/26/2022. TECHNIQUE: Procedure Code: USBRSTLIMIT Modality: US Procedure: BREAST LIMITED UNILATERAL FINDINGS: The asymmetric density identified in the superior outer aspect of the right breast on the mammogram study appears to represent a ridge of glandular tissue on the ultrasound examination. No suspicious solid or cystic masses are seen in this location. US/Breast Limited Unilateral IMPRESSION: The asymmetric density identified in the superior outer aspect of the right nithya ast on the mammogram study appears to represent a ridge of glandular tissue on the ultrasound examination. No suspicious solid or cystic masses are seen in this location.The patient should return in 1 year for routine yearly screening mammography. BI-RADS 1: NEGATIVE RECOMMENDATION: Routine annual follow-up in 1 Year Reading Location: [id number]
--- OUTSIDE RECORDS SUMMARY | 2025-03-10 08:46 | XMS RPT_ITS | CCD ---
Author Organization [facility] Care Team Providers Care Exercise Rider Name Role Phone MABLEANJELICASUGAR Referring Unavailable Gaudencio GILMAN, Janneth Primary Care Provider [phone] DO Adri Ambrocio Primary Care Provider Angie Olvera Attending Provider Unavailable DO Adri Ambrocio Referring Provider Friend, Dr. Still Attending Provider FriendDr. Still Other Provider Gaudencio GILMAN, Janneth Primary Care Provider Dr. Soledad Nuñez MD Primary Care Provider Dr. Toribio Huntley MD Emergency Provider SOLEDAD NUÑEZ Referring Unavailable SOLEDAD NUÑEZ Consulting Unavailable DESTINY PORTER DO Attending Unavailable DESTINY PORTER DO Primary Care Unavailable DESTINY PORTER DO Admitting Unavailable PROVIDER, UNKNOWN Consulting Unavailable Tro GILMAN, Dr. Soledad Montiel Primary Care Physician Dr. Toribio Huntley MD Attending Physician Dr. Toribio Huntley MD Emergency Department Physician Toribio Huntley Attending Unavailable Soledad Nuñez Primary Care Unavailable Toribio Huntley Attending Unavailable Soledad Nuñez Primary Care Unavailable Toribio Huntley Attending Unavailable Soledad Nuñez Primary Care Unavailable Soledad Nuñez Primary Care Unavailable Toribio Huntley Attending Unavailable Soledad Nuñez Referring Unavailable Soledad Nuñez Primary Care Unavailable Soledad Nuñez Attending Unavailable Soledad Nuñez Attending Unavailable Soledad Nuñez Primary Care Unavailable Medications Current Medications Medication Drug Class(es) Dates Sig (Normalized) Sig (Original) cholecalciferol 0.025 mg oral capsule (8 sources) Vitamin D Start: 12-27-2022 take 1 capsule by mouth once daily Start: 05-07-2020 take 1 capsule by mo uth every week cholecalciferol, Vitamin D3, (VITAMIN D3) 1,250 mcg (50,000 unit) cap capsule Indications: Vitamin D deficiency Take 1 capsule by mouth one time a week. 12 capsule 05/07/2020 Active Comment on above: Take 1 capsule by mo uth one time a week. Multivitamin preparation (1 source) Start: 11-03-2022 take 1 tablet by mouth once daily Multivitamin Active 1 TABLET PO DAILY November 03, 2022 12:00am MULTIVITAMIN TAB (3 sources) Start: 08-03-2007 MULTIVITAMIN TAB Take one(1) tablet daily. 0 08/03/2007 Active Comment on above: Take one(1) tablet d aily. Multivitamin tablet (4 sources) Start: 11-03-2022 Start: 11-03-2022 Multivitamin t ablet Active 1 {tbl} PO DAILY November 03, 2022 12:00am Gorin-3 Fatty Acids-Vitamin E (FISH OIL) 1,000 mg ORAL Cap (3 sources) Start: 10-20-2010 take 1 capsule by mouth twice daily Gorin-3 Fatty Acids-Vitamin E (FISH OIL) 1,000 mg ORAL Cap Take 1 capsule by mouth twice daily. 10/20/2010 Active Start: 10-20-2010 take 1 capsule by mo uth twice daily Gorin-3 Fatty Acids-Vitamin E (FISH OIL) 1,000 mg ORAL Cap Take 1 capsule by mouth twice daily. 0 10/20/2010 Active Comment on above: Take 1 capsule by mo uth twice daily. Problems Active Problems Problem Classification Problem Date Documented Date Episodic/Chronic Disorders of lipid metabolism (4 sources) Mixed hyperlipidemia; Translations: [Mixed hyperlipidemia] Onset: 01-25-2019 01-25-2019 Chronic E Codes: Natural/environment (4 sources) Mammal bite wound; Translations: [Bitten by other mammals, initial encounter] 01-09-2025 Episodic Immunizations and screening for infectious disease (2 sources) Encounter for immunization; Translations: [Contact with and (suspected) exposure to rabies] Onset: 01-20-2025 Episodic Joint disorders and dislocations; trauma-related (3 sources) Patellofemoral stress syndrome; Translations: [Patellofemoral disorders, unspecified knee] Onset: 01-11-2012 01-25-2019 Chronic Other circulatory disease (4 sources) Elevated blood-pressure reading without diagnosis of hypertension; Translations: [Elevated blood-pressure reading, without diagnosis of hypertension] 01-09-2025 Episodic Other screening for suspected conditions (not mental disorders or infectious disease) (11 sources) Encounter for other screening for malignant [...] Results Test Name Value Interpretation Reference Range Facil ity Hemoglobin A1con 03-07-2025 HbA1c (Bld) [Mass fraction] 5.3 % Normal <=5.6 [facility] Comment on above: Order Comment: PLS A DD A1C TO LABS DONE 03/06/25 PER [facility] Result Comment: Norm al < 5.7 % Prediabetic 5.7 - 6.4 % Diabetic >or= 6.5 % Please note range changes. Performed By: #### L 501.9956, L3890.6202, L3890.6102, L3890.6301, L506.1001 #### [facility] [place], [address] Hepatitis B Surface Antibody on 03-07-2025 HEP B Surf Ab Non-Reactive Normal [facility] Comment on above: Order Comment: PLS A DD HEP B AG AND AB, AND HEP C AB TO LABS DRAWN 03/06/25 - [facility] LOCATIONS: THG3,4,O OR THG4,1,E Result Comment: <8.5 mIU/mL: Non-Reactive 8.5<= x <11.5 mIU/mL: Indeterminate >=11.5 mIU/mL: Reactive Non Reactive: Inconsistent with immunity less than <10 mIU/mL Reactive: Consistent with immunity greater than or equal to 10 mIU/mL Performed By: #### L 501.9985, L3890.6202, L3890.6102, L3890.6301, L506.1001 #### [facility] [address] [place], [place], [address] Hepatitis C Antibodyon 03-07 Hepatitis C Ab Non-Reactive Normal Nonreactive [facility] Comment on above: Order Comment: PLS A DD HEP B AG AND AB, AND HEP C AB TO LABS DRAWN 03/06/25 - [facility] LOCATIONS: THG3,4,O OR THG4,1,E Result Comment: Reac tive: Presumptive evidence of antibodies to HCV. Follow CDC recommendations for supplemental testing. Non-Reactive: Antibodies to HCV were not detected; does not exclude the possibility of exposure to HCV Reactive Results are presumptive evidence of antibodies to HCV. Follow CDC recommendations for supplemental testing. Order confirmation testing: HCV Quant by PCR testing - HCVPCR #[id number] Non Reactive: < 0.8 Equivocal: >/= 0.8 to < 1.0 Reactive: >/= 1.0 The CDC requires that a reactive/equivocal HCV antibody result be sent out for confirmation. HCV Quant by PCR testing. Performed By: #### L 501.9985, L3890.6202, L3890.6102, L3890.6301, L506.1001 #### [facility] [address] [place], [place], [address] L3890.6102on 03-07-2025 HEP B Surf Ag Non-Reactive Normal Nonreactive [facility] Comment on above: Order Comment: PLS A DD HEP B AG AND AB, AND HEP C AB TO LABS DRAWN 03/06/25 - [facility] LOCATIONS: THG3,4,O OR THG4,1,E Result Comment: Reac tive: Presumptive evidence of HBV. Repeatedly reactive samples must be confirmed using a neutralization test ([employer] HBsAg Confirmatory Test) Non-Reactive: HBsAg not detected; does not exclude the possibility of exposure to HBV Performed By: #### L 501.9985, L3890.6202, L3890.6102, L3890.6301, L506.1001 #### [facility] [address] [place], [address] CBC W/Diff, Automatedon 11- Absolute Lymph 1.60 X10 3/uL Normal 0.83-4.51 [facility] Comment on above: Order Comment: PLS A DD A1C TO LABS DONE 03/06/25 [facility] Performed By: #### L 501.9985, L3890.6202, L3890.6102, L3890.6301, L506.1001 #### [facility] [address] [place], [address] Absolute Neut 3.2 X10 3/uL Normal 2.0-7.7 [facility] Comment on above: Order Comment: PLS A DD A1C TO LABS DONE 03/06/25 [facility] Performed By: #### L 501.9985, L3890.6202, L3890.6102, L3890.6301, L506.1001 #### [facility] [address] [place], [address] Basophils/100 WBC (Bld) 0.5 % Normal 0-1 [facility] Comment on above: Order Comment: PLS A DD A1C TO LABS DONE 03/06/25 PER [facility] Performed By: #### L 501.9985, L3890.6202, L3890.6102, L3890.6301, L506.1001 #### [facility] [address] [place], [address] Eosinophils/100 WBC (Bld) 1.6 % Normal 0-5 [facility] Comment on above: Order Comment: PLS A DD A1C TO LABS DONE 03/06/25 [facility] Performed By: #### L 501.9985, L3890.6202, L3890.6102, L3890.6301, L506.1001 #### [facility] [address] [place], [address] Erythrocyte distribution width (RBC) [Ratio] 12.9 % Normal 11.6-14.6 [facility] Comment on above: Order Comment: PLS A DD A1C TO LABS DONE 03/06/25 PER [facility] Performed By: #### L 501.9985, L3890.6202, L3890.6102, L3890.6301, L506.1001 #### [facility] [address] [place], [address] Hematocrit (Bld) [Volume fraction] 41.6 % Normal 37-47 [facility] Comment on above: Order Comment: PLS A DD A1C TO LABS DONE 03/06/25 PER [facility] Performed By: #### L 501.9985, L3890.6202, L3890.6102, L3890.6301, L506.1001 #### [facility] [address] [place], [address] Hemoglobin (Bld) [Mass/Vol] 14.4 g/dL Normal 12.0-15.0 [facility] Comment on above: Order Comment: PLS A DD A1C TO LABS DONE 03/06/25 PER [facility] Performed By: #### L 501.9985, L3890.6202, L3890.6102, L3890.6301, L506.1001 #### [facility] [address] [place], [address] IG% 0.500 Normal 0.0-0.9 [facility] Comment on above: Order Comment: PLS A DD A1C TO LABS DONE 03/06/25 PER [facility] Result Comment: IG% - Immature Granulocytes (promyelocytes, myelocytes and metamyelocytes) > 1% indicates that a LEFT SHIFT is Present. Performed By: #### L 501.9985, L3890.6202, L3890.6102, L3890.6301, L506.1001 #### [facility] [address] [place], [address] Lymphocytes/100 WBC (Bld) 29.1 % Normal 19-41 [facility] Comment on above: Order Comment: PLS A DD A1C [facility]S [facility] Performed By: #### L 501.9985, L3890.6202, L3890.6102, L3890.6301, L506.1001 #### [facility] [address] [place], [address] MCH (RBC) [Entitic mass] 32.4 pg High 27.0-32.0 [facility] Comment on above: Order Comment: PLS A DD A1C TO LABS [facility]06[facility] Performed By: #### L 501.9985, L3890.6202, L3890.6102, L3890.6301, L506.1001 #### [facility] [address] [place], [address] MCHC (RBC) [Mass/Vol] 34.6 g/dL Normal 32-36 [facility] Comment on above: Order Comment: PLS A DD A1C TO LABS DONE 03/06/25 [facility] Performed By: #### L 501.9985, L3890.6202, L3890.6102, L3890.6301, L506.1001 #### [facility] [address] [place], [address] MCV (RBC) [Entitic vol] 93.7 fL Normal 81-99 [facility] Comment on above: Order Comment: PLS A DD A1C TO LABS DONE 03/06/25 PER [facility] Performed By: #### L 501.9985, L3890.6202, L3890.6102, L3890.6301, L506.1001 #### [facility] [address] [place], [address] Monocytes/100 WBC (Bld) 9.5 % Normal 0-10 [facility] Comment on above: Order Comment: PLS A DD A1C TO LABS D[facility]06[facility] Performed By: #### L 501.9985, L3890.6202, L3890.6102, L3890.6301, L506.1001 #### [facility] [address] [place], [address] Neutrophils/100 WBC (Bld) 58.8 % Normal 47-70 [facility] Comment on above: Order Comment: PLS A DD A1C TO LABS DONE 03/06/25 [facility] Performed By: #### L 501.9985, L3890.6202, L3890.6102, L3890.6301, L506.1001 #### [facility] [address] [place], [address] Nucleated RBC (Bld) [#/Vol] 0 10*3/uL Normal 0-5 [facility] Comment on above: Order Comment: PLS A DD A1C TO LABS DONE 03/06/25 [facility] Performed By: #### L 501.9985, L3890.6202, L3890.6102, L3890.6301, L506.1001 #### [facility] [address] [place], [address] Platelet mean volume (Bld) [Entitic vol] 9.2 fL Normal 6.2-12.0 [facility] Comment on above: Order Comment: PLS A DD A1C TO LABS DONE 03/06/25 PER [facility] Performed By: #### L 501.9985, L3890.6202, L3890.6102, L3890.6301, L506.1001 #### [facility] [address] [place], [address] Platelets (Bld) [#/Vol] 292 10*3/uL Normal 150-450 [facility] Comment on above: Order Comment: PLS A DD A1C TO LABS DONE 03/06/25 [facility] Performed By: #### L 501.9985, L3890.6202, L3890.6102, L3890.6301, L506.1001 #### [facility] [address] [place], [address] RBC (Bld) [#/Vol] 4.44 10*6/uL Normal 4.2-5.4 [facility] Comment on above: Order Comment: PLS A DD A1C TO LABS DONE 03/06/25 PER [facility] Performed By: #### L 501.9985, L3890.6202, L3890.6102, L3890.6301, L506.1001 #### [facility] [address] [place], [address] RDW SD 44.8 fl High 35.1-43.9 [facility] Comment on above: Order Comment: PLS A DD A1C TO LABS DONE 03/06/25 PER [facility] Performed By: #### L 501.9985, L3890.6202, L3890.6102, L3890.6301, L506.1001 #### [facility] [address] [place], [address] WBC (Bld) [#/Vol] 5.5 10*3/uL Normal 4.4-11.0 [facility] Comment on above: Order Comment: PLS A DD A1C TO LABS DONE 03/06/25 PER [facility] Performed By: #### L 501.9985, L3890.6202, L3890.6102, L3890.6301, L506.1001 #### [facility] [address] [place], [address] Comprehensive Metabolic Prof ilon 03-06-2025 Albumin [Mass/Vol] 4.3 g/dL Normal 3.4-4.8 [facility] Comment on above: Order Comment: PLS A DD A1C TO LABS DONE 03/06/25 PER [facility] Performed By: #### L 501.9985, L3890.6202, L3890.6102, L3890.6301, L506.1001 #### [facility] [address] [place], [place], [address] Albumin/Globulin [Mass ratio] 1.5 {ratio} Normal 0.9-2.4 [facility] Comment on above: Order Comment: PLS A DD A1C TO LABS DONE 03/06/25 PER [facility] Performed By: #### L 501.9985, L3890.6202, L3890.6102, L3890.6301, L506.1001 #### [facility] [address] [place], [address] ALK PHOS 104 U/L Normal 35-104 [facility] Comment on above: Order Comment: PLS A DD A1C TO LABS DONE 03/06/25 [facility] Performed By: #### L 501.9985, L3890.6202, L3890.6102, L3890.6301, L506.1001 #### [facility] [address] [place], [address] ALT [Catalytic activity/Vol] 41 U/L High <=34 [facility] Comment on above: Order Comment: PLS A DD A1C TO LABS DONE 03/06/25 PER [facility] Performed By: #### L 501.9985, L3890.6202, L3890.6102, L3890.6301, L506.1001 #### [facility] [address] [place], [address] AST [Catalytic activity/Vol] 31 U/L Normal <=31 [facility] Comment on above: Order Comment: PLS A DD A1C TO LABS DONE 03/06/25 PER [facility] Performed By: #### L 501.9985, L3890.6202, L3890.6102, L3890.6301, L506.1001 #### [facility] [address] [place], [address] Bilirubin [Mass/Vol] 0.61 mg/dL Normal 0.00-1.30 [facility] Comment on above: Order Comment: PLS A DD A1C TO LABS DONE 03/06/25 PER [facility] Performed By: #### L 501.9985, L3890.6202, L3890.6102, L3890.6301, L506.1001 #### [facility] [address] [place], [address] BUN/CRE 20.5 RATIO High 10-20 [facility] Comment on above: Order Comment: PLS A DD A1C TO LABS DONE 03/06/25 [facility] Performed By: #### L 501.9985, L3890.6202, L3890.6102, L3890.6301, L506.1001 #### [facility] [address] [place], [place], [address] Calcium [Mass/Vol] 9.8 mg/dL Normal 7.6-11.0 [facility] Comment on above: Order Comment: PLS A DD A1C TO LABS DONE 03/06/25 PER [facility] Performed By: #### L 501.9985, L3890.6202, L3890.6102, L3890.6301, L506.1001 #### [facility] [address] [place], [address] Chloride [Moles/Vol] 103 mmol/L Normal 98-108 [facility] Comment on above: Order Comment: PLS A DD A1C TO LABS DONE 03/06/25 PER [facility] Performed By: #### L 501.9985, L3890.6202, L3890.6102, L3890.6301, L506.1001 #### [facility] [address] [place], [address] CO2 [Moles/Vol] 27.5 mmol/L Normal 21.0-32.0 [facility] Comment on above: Order Comment: PLS A DD A1C TO LABS DONE 03/06/25 [facility] Performed By: #### L 501.9985, L3890.6202, L3890.6102, L3890.6301, L506.1001 #### [facility] [address] [place], [address] Creatinine [Mass/Vol] 0.77 mg/dL Normal 0.70-1.20 [facility] Comment on above: Order Comment: PLS A DD A1C TO LABS DONE 03/06/25 [facility] Performed By: #### L 501.9985, L3890.6202, L3890.6102, L3890.6301, L506.1001 #### [facility] [address] [place], [address] GAP 10 Normal 5-15 [facility] Comment on above: Order Comment: PLS A DD A1C TO LABS DONE 03/06/25 [facility] Performed By: #### L 501.9985, L3890.6202, L3890.6102, L3890.6301, L506.1001 #### [facility] [address] [place], [address] GFR/1.73 sq M.predicted among non-blacks MDRD (S/P/Bld) [Vol rate/Area] 88 mL/min/{1.73_m2} Normal >60 [facility] Comment on above: Order Comment: PLS A DD A1C TO LABS DONE 03/06/25 [facility] Result Comment: mL/m in/1.73m2 CKD-EPI Creatinine Equation (2020) Performed By: #### L 501.9985, L3890.6202, L3890.6102, L3890.6301, L506.1001 #### [facility] [address] [place], [place], [address] Globulin (S) [Mass/Vol] 2.8 g/dL Normal 2.2-4.2 [facility] Comment on above: Order Comment: PLS A DD A1C TO LABS DONE 03/06/25 [facility] Performed By: #### L 501.9985, L3890.6202, L3890.6102, L3890.6301, L506.1001 #### [facility] [address] [place], [place], [address] Glucose [Mass/Vol] 103 mg/dL High 70-99 [facility] Comment on above: Order Comment: PLS A DD A1C TO LABS DONE 03/06/25 [facility] Performed By: #### L 501.9985, L3890.6202, L3890.6102, L3890.6301, L506.1001 #### [facility] [address] [place], [address] Potassium [Moles/Vol] 4.4 mmol/L Normal 3.3-5.1 [facility] Comment on above: Order Comment: PLS A DD A1C TO LABS DONE 03/06/25 [facility] Performed By: #### L 501.9985, L3890.6202, L3890.6102, L3890.6301, L506.1001 #### [facility] [address] [place], [address] Sodium [Moles/Vol] 140 mmol/L Normal 133-145 [facility] Comment on above: Order Comment: PLS A DD A1C TO LABS DONE 03/06/25 [facility] Performed By: #### L 501.9985, L3890.6202, L3890.6102, L3890.6301, L506.1001 #### [facility] [address] [place], [address] T PROT 7.0 g/dL Normal 5.9-8.4 [facility] Comment on above: Order Comment: PLS A DD A1C TO LABS DONE 03/06/25 [facility] Performed By: #### L 501.9985, L3890.6202, L3890.6102, L3890.6301, L506.1001 #### [facility] [address] [place], [address] Urea nitrogen [Mass/Vol] 16 mg/dL Normal 4-19 [facility] Comment on above: Order Comment: PLS A DD A1C TO LABS DONE 03/06/25 [facility] Performed By: #### L 501.9985, L3890.6202, L3890.6102, L3890.6301, L506.1001 #### [facility] [address] [place], [address] Lipid Profileon 03-06-2025 CHOL:HDL 2.65 Normal [facility] Comment on above: Order Comment: PLS A DD A1C TO LABS DONE 03/06/25 [facility] Performed By: #### L 501.9985, L3890.6202, L3890.6102, L3890.6301, L506.1001 #### [facility] [address] [place], [address] Cholesterol [Mass/Vol] 195 mg/dL Normal <=200 [facility] Comment on above: Order Comment: PLS A DD A1C TO LABS DONE 03/06/25 [facility] Result Comment: Chol esterol level, Desirable <200 mg/dL Borderline high cholesterol 200-239 mg/dL High cholesterol >=240 mg/dL Recommendations of the NCEP Adult Treatment Panel for the following risk-cutoff thresholds for the [place] population. Performed By: #### L 501.9985, L3890.6202, L3890.6102, L3890.6301, L506.1001 #### [facility] [address] [place], [address] Cholesterol in HDL [Mass/Vol] 74 mg/dL Normal [facility] Comment on above: Order Comment: PLS A DD A1C TO LABS DONE 03/06/25 [facility] Result Comment: Marisel onal Cholesterol Education Program (NCEP) guidelines: <40 mg/dL: Low HDL-cholesterol (major risk factor for CHD) >= 60 mg/dL: High HDL-cholesterol (negative risk factor for CHD) HDL-cholesterol is affected by a number of factors, e.g. smoking, exercise, hormones, sex and age. Performed By: #### L 501.9985, L3890.6202, L3890.6102, L3890.6301, L506.1001 #### [facility] [address] [place], [address] Cholesterol in LDL [Mass/Vol] 110 mg/dL Normal [facility] Comment on above: Order Comment: PLS A DD A1C TO LABS DONE 03/06/25 [facility] Result Comment: Bord jmlnck=660-831 mg/dL Higher Gwdu=855 mg/dL or greater Kelly Equation 2020 for LDL-C Performed By: #### L 501.9985, L3890.6202, L3890.6102, L3890.6301, L506.1001 #### [facility] [address] [place], [address] Cholesterol in VLDL [Mass/Vol] 12 mg/dL Normal 5-40 [facility] Comment on above: Order Comment: PLS A DD A1C TO LABS DONE 03/06/25 [facility] Performed By: #### L 501.9985, L3890.6202, L3890.6102, L3890.6301, L506.1001 #### [facility] [address] [place], [address] Triglyceride [Mass/Vol] 61 mg/dL Normal [facility] Comment on above: Order Comment: PLS A DD A1C TO LABS DONE 03/06/25 PER [facility] Result Comment: The drugs N-Acetylcysteine and Metamizole may falsely depress this assay. Normal range: <150 mg/dL Borderline High: 150-199 mg/dL High: 200-499 mg/dL Very High: >500 mg/dL Performed By: #### L 501.9985, L3890.6202, L3890.6102, L3890.6301, L506.1001 #### [facility] [address] [place], [address] SCRN MAMM (CAD)W/DARIUS BILATo n 03-06-2025 SCRN MAMM (CAD)W/DARIUS BILAT [facility] Imaging Services [address] [place] [address] SCRN MAMM (CAD)W/DARIUS BILAT MR#: [id number] Acct: [id number] Name: GERRI GEORGES Rep #: [id number] : 1965 F 59 From: Adi fabian MD PCP: Dr. Soledad Nuñez MD Status: REG CL Study: SCRN MAMM (CAD)W/DARIUS BILAT Date of Exam: 10/23 Exam# [id number] Ordering Dr: Soledad Nuñez MD EXAM: SCRN MAMM (CAD)W/DARIUS BILAT DATE: 03/06/2025 CLINICAL HISTORY: F, Age 59 y/o , SCREENING No family history. TECHNIQUE: Procedure Code: [id number] Modality: MG Procedure: SCRN MAMM (CAD)W/DARIUS BILAT COMPARISON: Prior exam(s) dated October 26, 2022.. FINDINGS: TISSUE DENSITY: The breasts are heterogeneously dense, which may obscure small masses. Bilateral Breast Mammographic Findings: No significant masses, calcifications or other abnormalities are identified. Asymmetry of breast tissue in the upper-outer quadrant of the right breast. This is unchanged. Sonographic correlation recommended for further evaluation. Stable small benign-appearing bilateral axillary lymph nodes. No suspicious masses, areas of developing architectural distortion, or suspicious calcifications. There has been no significant interval change. BI/SCRN MAMM (CAD)W/DARIUS BILAT IMPRESSION: Stable asymmetry of breast tissue in the upper-outer quadrant of the right breast as described. Sonographic correlation recommended. OVERALL FINAL ASSESSMENT BI-RADS 0: INCOMPLETE - NEED ADDITIONAL IMAGING EVALUATION. RECOMMENDATION: Ultrasound Recommended Additional Recommendation none A letter with findings and recommendations will be mailed to the patient. Reading Location: [id number] CC: Dr. Soledad Nuñez MD Message Clerk: Signed Normal [facility] Vitamin D,25 Hydroxyon 03-06 Vitamin D 25-OH 37.8 ng/mL Normal 30-100 [facility] Comment on above: Order Comment: Order Date: 02/19/25 Order Info: [id number] - CMP Order Info: [id number] - LIPID Result Comment: Mary min D Status Deficiency: <20 ng/mL (50nmol/L) Insufficiency: 20-30 ng/mL (50-75 nmol/L) Sufficiency: 30-100 ng/mL (75-250 nmol/L) Toxicity: >100 ng/mL (>250 nmol/L) Performed By: #### L 501.9985, L3890.6202, L3890.6102, L3890.6301, L506.1001 #### [facility] [address] 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 [address] [id number] 01/09/2025 Patient: GERRI GEORGES Sex: Female : 1965 Age: 59y MEASUREMENTS: Wt: 83.9 kg, Ht/Gerber: 68.0 in, BMI: 28.13 ALLERGIES: No known drug allergies Medication Ordered Medication Administration Date/Time Amoxicillin-Clav 15:38 09 Amoxicillin-Clav (Augmentin) PO 875 mg-125 mg Tab Given (Augmentin) PO 875 1 tab given. Allergies verified and confirmed 5 rights. Information 15:38 01/09/2025 mg-125 mg Tab 1 reviewed with patient including reason for taking this medication, Tamia Benítez R.N. tab (NOW x1) signs of allergic reaction and precautions. Verbalizes Scanned understanding. - 15:38 Tamia Benítez R.N. Tdap IM 15:35 09 Tdap IM DIPTH/TETANUS/PERT > 7yr and older [...] mL (NOW x1) 1 of 1 Normal [facility] ED NURSES CLINICAL NOTEon ED NURSES CLINICAL NOTE Nurse Narrative - GERRI GEORGES, : 1965, , Nurse Clinical Narrative [address] [place] [address] [id number] 01/09/2025 14:31:00 Patient: GERRI GEORGES Sex: Female [...] -- 14:39 01/09/25 EDT Bj Medina R.N. 14:01/09/25. BP: 151/71 MAP: 98. HR: 66. RR: [...] R.N. Problems: no known problem -- 14:01/09/25 EDT Bj Medina R.N. Surgeries: -- 14:01/09/25 EDT Bj Medina R.N. Lasik -- 14:37 [...] 14:39 01/09/25 EDT Bj Medina R.N. Interventions 14:34 01/09/25. Advanced care plan discussed with patient. Patient [...] Reviewed referrals (Patient is to go to [place] ED for rabies vaccination). Patient verbalized understanding. Written instructions provided in Danish. The patient was discharged home and accompanied by spouse. The patient left ambulatory and via private vehicle. Spouse driving. -- 15:50 01/09/25 EDT Tamia Benítez R.N. (Electronically signed by Tamia Benítez R.N. 01/09/25 15:53:05 EDT) Generated by [facility] 3 of 3 Normal [facility] ED ORDER SHEET (CPOE ONLY)on 01-09-2025 ED ORDER SHEET (CPOE ONLY) Order Sheet - GERRI GEORGES, : 1965, , Order Sheet [address] [address] [id number] 01/09/2025 Patient: GERRI GEORGES Sex: Female : 1965 Age: 59y MEASUREMENTS: Wt: 83.9 kg, Ht/Gerber: 68.0 in, BMI: 28.13 ALLERGIES: No known drug allergies MEDICATION/IV/DRIP/ FLUID ORDERS Order Description Priority Entered Acknowledged Completed [...] (01/09/2025 19:33 EDT)] 2 of 2 Normal [facility] ED PHYSICIAN CLINICAL REPORT on 01-09-2025 ED PHYSICIAN CLINICAL REPORT Narrative - GERRI GEORGES, : 1965, , [place] [address] [id number] 01/09/2025 14:31:00 Patient: GERRI GEORGES Sex: Female [...] do not carry the rabies vaccine here. [place] [facility] does carry it and so does the [facility]. But not the [facility]. [place]. [place] try following with the [facility]ment [place] today if they wish but I told her we need to get the vaccine series started TODAY. So wherever place can get things going today. I told her I felt the ER in [place] is a better choice because they are [...] consistent with outpatient treatment. Go directly to [facility] ER now to get the rabies vaccine. CLINICAL IMPRESSION Multiple superficial bat bites to the right forearm. DISCHARGE INSTRUCTIONS (Go directly to [facility] for the rabies series of shots now. We don't have the rabies vaccine here. [facility] in [place], [place] also has the rabies vaccine and they are open till 4:30 pm but the ER in [place] might be more reliable palce to go. Take medication as prescribed.). Warnings: GENERAL WARNINGS: Return or contact your physician immediately if your condition worsens or changes unexpectedly, if not improvin (more content not included)... Normal [facility] ED [facility] 01-09-2025 ED [facility] - ROCIO GERRI, : 1965, , Superbill [address] [address] [id number] 01/09/2025 Patient: GERRI GEORGES Sex: Female : 1965 Age: 59y Item Professional Category Description Facility Code Code Quantity Fee Total Nurse/E/M EMERGENCY 421466 1 $0.00 $0.00 DEPARTMENT VISIT MODERATE SEVERITY (83415) Grand Total $0.00 Providers David Lopez D.O. Chief Complaint BAT BITE. Principal Diagnosis Multiple superficial bat bites to the right forearm. ICD-10 Codes 1 of 2 [facility] - GERRI GEORGES, : 1965, , S50.871A: Other superficial bite of right forearm, initial encounter 2 of 2 [facility] ED VISIT SUMMARYon ED VISIT SUMMARY Visit Overview - GERRI GEORGES, : 1965, , Visit Overview [address] [address] [id number] 01/09/2025 Patient: GERRI GEORGES Sex: Female : [...] 15:33 01/09/25 BP 14:37 01/09/25 151/71 BP 15:01/09/25 141/74 HR 14:37 01/09/25 66 HR 15:33 01/09/25 66 RR 14:37 01/09/25 18 RR 15:01/09/25 15 O2 Sat 14:37 01/09/25 99% O2 Sat 15:01/09/25 96% RA 2 of 3 Visit Overview - ROCIOGERRI, : 1965, , First Vitals Last Vitals Pain 14:37 01/09/25 0 Pain 15:33 01/09/25 0 ETCO2 14:37 01/09/25 ETCO2 15:33 01/09/25 GCS 14:37 01/09/25 GCS 15:33 01/09/25 RTS 14:37 01/09/25 RTS 15:33 01/09/25 PROCEDURES NURSING INTERVENTIONS LABS / STUDIES CLINICAL IMPRESSION MULTIPLE SUPERFICIAL BAT BITES TO THE RIGHT FOREARM 3 of 3 Normal [facility] ED VITALS FLOW SHEETon 01-09 ED VITALS FLOW SHEET Vitals - GERRI GEORGES, : 1965, , Vital Sign Flow Sheet [address] [place] [address] [id number] 01/09/2025 Patient: GERRI GEORGES Sex: Female : 1965 Age: 59y Measurements Wt: 83.9 kg, Ht/Gerber: 68.0 in, BMI: 28.13 Measured Time BP MAP HR RR O2Sat ETCO2 Temp Pain GCS RTS 15:33 01/09/2025 141/74 96 66 15 96% RA 0 14:37 01/09/2025 151/71 98 66 18 99% 97.9 F 0 1 of 1 Normal [facility] Emergency Department Summary on 01-09-2025 Emergency Department Summary [facility] Medical Records Department [address] [place] [address] Emergency Department Summary 01/09/25 MR#: [id number] Acct: [id number] Name: GERRI GEORGES Rep #: [id number] : 1965 59 From: Toribio Huntley MD PCP: Dr. Soledad Nuñez MD Status:PRE ER Location: ED HPI History of Present Illness Chief Complaint: Bite Detail of Chief Complaint: Bite volar surface right arm, awoke with bat in bedroom Informant: patient Onset/Context/Carole brown Onset: Weeks (01/01/2025) Mechanism/Context: Puncture Wound (2 [...] no symptoms. Prior similar symptoms: No Recent Illness/Hospitaliza tion: No PFSH FOR[facility]LY [facility], [facility] Medical History Wears glasses Post-menopausal Alcohol [...] has puncture wound daughter who is a commercial fisherman is concerned this puncture was consistent with [...] Care Provider] - 1-2 Weeks Print Language: Danish Disposition Disposition: Home, Self Care What to do if you have Problems For any increased pain, shortness of breath, bleeding, nausea or vomiting, chest pain, or any unexpected problems, contact your Primary Care Provider. Call [facility] ([phone]) or report to the closest Emergency Room. Ca (more content not included)... Normal [facility] Comprehensive Metabolic Prof ilon 03-19-2024 Albumin [Mass/Vol] 4.1 g/dL Normal 3.2-5.0 [facility] Comment on above: Order Comment: Order Date: 03/19/24 Order Info: [id number] - CMP Order Info: [id number] - LIPID Performed By: #### L 500.4050, L506.1000, L500.4100 #### [facility] [address] [place], [address] Albumin/Globulin [Mass ratio] 1.1 {ratio} Normal 0.9-2.4 [facility] Comment on above: Order Comment: Order Date: 03/19/24 Order Info: [id number] - CMP Order Info: [id number] - LIPID Performed By: #### L 500.4050, L506.1000, L500.4100 #### [facility] [address] [place], [address] ALK P 120 U/L High 45-117 [facility] Comment on above: Order Comment: Order Date: 03/19/24 Order Info: [id number] - CMP Order Info: [id number] - LIPID Performed By: #### L 500.4050, L506.1000, L500.4100 #### [facility] [address] [place], [address] ALT [Catalytic activity/Vol] 25 U/L Normal 13-56 [facility] Comment on above: Order Comment: Order Date: 03/19/24 Order Info: [id number] - CMP Order Info: [id number] - LIPID Performed By: #### L 500.4050, L506.1000, L500.4100 #### [facility] [address] [place], [address] AST [Catalytic activity/Vol] 20 U/L Normal 15-37 [facility] Comment on above: Order Comment: Order Date: 03/19/24 Order Info: 07 - CMP Order Info: [id number] - LIPID Performed By: #### L 500.4050, L506.1000, L500.4100 #### [facility] [address] [place], [address] Bilirubin [Mass/Vol] 0.60 mg/dL Normal 0.20-1.00 [facility] Comment on above: Order Comment: Order Date: 03/19/24 Order Info: 0786 - CMP Order Info: [id number] - LIPID Result Comment: For patients on eltrombopag therapy, use of Dimension Eckerman TBIL is not recommended. Performed By: #### L 500.4050, L506.1000, L500.4100 #### [facility] [address] [place], [address] BUN/CRE 19.0 RATIO Normal 10-20 [facility] Comment on above: Order Comment: Order Date: 03/19/24 Order Info: [id number] - CMP Order Info: [id number] - LIPID Performed By: #### L 500.4050, L506.1000, L500.4100 #### [facility] [address] [place], [address] CA,Total 10.1 mg/dL Normal 8.5-10.1 [facility] Comment on above: Order Comment: Order Date: 03/19/24 Order Info: [id number] - CMP Order Info: [id number] - LIPID Performed By: #### L 500.4050, L506.1000, L500.4100 #### [facility] [address] [place], [address] Chloride [Moles/Vol] 105 mmol/L Normal 98-107 [facility] Comment on above: Order Comment: Order Date: 03/19/24 Order Info: 07- - CMP Order Info: [id number] - LIPID Performed By: #### L 500.4050, L506.1000, L500.4100 #### [facility] [address] [place], [address] CO2 [Moles/Vol] 26.0 mmol/L Normal 21.0-32.0 [facility] Comment on above: Order Comment: Order Date: 03/19/24 Order Info: 07 - CMP Order Info: [id number] - LIPID Performed By: #### L 500.4050, L506.1000, L500.4100 #### [facility] [address] [place], [address] Creatinine [Mass/Vol] 0.90 mg/dL Normal 0.55-1.02 [facility] Comment on above: Order Comment: Order Date: 03/19/24 Order Info: 0786- - CMP Order Info: [id number] - LIPID Result Comment: The validity of the calculated GFR GFRAA in patients over 70 years has not been determined. Clinical correlation is essential. Performed By: #### L 500.4050, L506.1000, L500.4100 #### [facility] [address] [place], [address] EST GFR - AA 83 mL/min Normal >60 [facility] Comment on above: Order Comment: Order Date: 03/19/24 Order Info: [id number] - CMP Order Info: [id number] - LIPID Result Comment: Afri can [place] GFR Calc Performed By: #### L 500.4050, L506.1000, L500.4100 #### [facility] [address] [place], [address] GAP 6 Normal 5-15 [facility] Comment on above: Order Comment: Order Date: 03/19/24 Order Info: 0786- - CMP Order Info: [id number] - LIPID Performed By: #### L 500.4050, L506.1000, L500.4100 #### [facility] [address] [place], [address] GFR/1.73 sq M.predicted among non-blacks MDRD (S/P/Bld) [Vol rate/Area] 68 mL/min/{1.73_m2} Normal >60 [facility] Comment on above: Order Comment: Order Date: 03/19/24 Order Info: 07 - CMP Order Info: [id number] - LIPID Result Comment: Non- GFR Calc Performed By: #### L 500.4050, L506.1000, L500.4100 #### [facility] [address] [place], [address] Globulin (S) [Mass/Vol] 3.6 g/dL Normal 2.2-4.2 [facility] Comment on above: Order Comment: Order Date: 03/19/24 Order Info: 0786- - CMP Order Info: [id number] - LIPID Performed By: #### L 500.4050, L506.1000, L500.4100 #### [facility] [address] [place], [address] Glucose [Mass/Vol] 96 mg/dL Normal 74-106 [facility] Comment on above: Order Comment: Order Date: 03/19/24 Order Info: 0786- - CMP Order Info: [id number] - LIPID Performed By: #### L 500.4050, L506.1000, L500.4100 #### [facility] [address] [place], [address] Potassium [Moles/Vol] 4.2 mmol/L Normal 3.5-5.1 [facility] Comment on above: Order Comment: Order Date: 03/19/24 Order Info: [id number] - CMP Order Info: [id number] - LIPID Performed By: #### L 500.4050, L506.1000, L500.4100 #### [facility] [address] [place], [address] Sodium [Moles/Vol] 136 mmol/L Normal 136-145 [facility] Comment on above: Order Comment: Order Date: 03/19/24 Order Info: [id number] - CMP Order Info: [id number] - LIPID Performed By: #### L 500.4050, L506.1000, L500.4100 #### [facility] [address] [place], [address] T PROT 7.7 g/dL Normal 6.4-8.2 [facility] Comment on above: Order Comment: Order Date: 03/19/24 Order Info: [id number] - CMP Order Info: [id number] - LIPID Performed By: #### L 500.4050, L506.1000, L500.4100 #### [facility] [address] [place], [address] Urea nitrogen [Mass/Vol] 17 mg/dL Normal 7-18 [facility] Comment on above: Order Comment: Order Date: 03/19/24 Order Info: [id number] - CMP Order Info: [id number] - LIPID Performed By: #### L 500.4050, L506.1000, L500.4100 #### [facility] [address] [place], [address] Lipid Profileon 03-19-2024 Cholesterol [Mass/Vol] 249 mg/dL High 200 [facility] Comment on above: Order Comment: Order Date: 03/19/24 Order Info: [id number] - CMP Order Info: [id number] - LIPID Result Comment: <200 mg/dL Desirable 200-240 mg/dL Borderline >240 mg/dL High Risk Performed By: #### L 500.4050, L506.1000, L500.4100 #### [facility] [address] [place], [address] Cholesterol in HDL [Mass/Vol] 107 mg/dL Normal [facility] Comment on above: Order Comment: Order Date: 03/19/24 Order Info: 0786- - CMP Order Info: [id number] - LIPID Result Comment: The drugs N-Acetylcysteine and Metamizole may falsely depress this assay. Reference Range HDL <40 mg/dL Low HDL Cholesterol HDL >or= 60 mg/dL High HDL Cholesterol Performed By: #### L 500.4050, L506.1000, L500.4100 #### [facility] [address] [place], [address] Cholesterol in LDL [Mass/Vol] 126 mg/dL Normal 0-130 [facility] Comment on above: Order Comment: Order Date: 03/19/24 Order Info: [id number] - CMP Order Info: [id number] - LIPID Performed By: #### L 500.4050, L506.1000, L500.4100 #### [facility] [address] [place], [address] Cholesterol in VLDL [Mass/Vol] 16 mg/dL Normal 5-40 [facility] Comment on above: Order Comment: Order Date: 03/19/24 Order Info: [id number] - CMP Order Info: [id number] - LIPID Performed By: #### L 500.4050, L506.1000, L500.4100 #### [facility] [address] [place], [address] Triglyceride [Mass/Vol] 81 mg/dL Normal [facility] Comment on above: Order Comment: Order Date: 03/19/24 Order Info: [id number] - CMP Order Info: [id number] - LIPID Result Comment: The drugs N-Acetylcysteine and Metamizole may falsely depress this assay. Serum Triglycerides Reference Interval Normal <150 mg/dL Borderline high 150 - 199 mg/dL High 200 - 499 mg/dL Very High > or = 500 mg/dL Performed By: #### L 500.4050, L506.1000, L500.4100 #### [facility] [address] [place], [place], [address] Vitamin D,25 Hydroxyon 03-19 Vitamin D 25-OH 34.0 ng/mL Normal [facility] Comment on above: Order Comment: Order Date: 03/19/24 Order Info: [id number] - VITD25 Result Comment: Mary min D 25(OH) Status Range Deficiency <20 ng/mL (50nmol/L) Insufficiency 20 - 30 ng/mL (50 - 75 nmol/L) Sufficiency 30 - 100 ng/mL (75 - 250 nmol/L) Toxicity >100 ng/mL (>250 nmol/L) Performed By: #### L 500.4050, L506.1000, L500.4100 #### [facility] [address] [place], [place], [address] Absolute lymphocyte countOrd ered By: Adri Ambrocio on 08-16-2022 Lymphocytes Auto (Unsp spec) [#/Vol] 1.35 10*3/uL 0.83-4.51 [facility] Basophil percentageOrdered B y: Adri Ambrocio on 08-16-2022 Basophils/100 WBC (Bld) 0.6 % 0-1 [facility] Bilirubin [Mass/Vol] 0.50 mg/dL 0.20-1.00 [facility] Comment on above: For patients on eltr ombopag therapy, use of Dimension Eckerman TBIL is not recommended. Chloride [Moles/Vol] 107 mmol/L 98-107 [facility] Cholesterol [Mass/Vol] 251 mg/dL <200 [facility] Comment on above: <200 mg/dL Desirable 200-240 mg/dL Borderline >240 mg/dL High Risk Eosinophils/100 WBC (Bld) 3.9 % 0-5 [facility] Glucose [Mass/Vol] 95 mg/dL 74-106 [facility] Neutrophils (Bld) [#/Vol] 2.8 10*3/uL 2.0-7.7 [facility] Neutrophils/100 WBC (Bld) 57.6 % 47-70 [facility] Potassium [Moles/Vol] 4.5 mmol/L 3.5-5.1 [facility] Protein [Mass/Vol] 7.3 g/dL 6.4-8.2 [facility] Sodium [Moles/Vol] 138 mmol/L 136-145 [facility] Triglyceride [Mass/Vol] 82 mg/dL <199 [facility] Comment on above: The drugs N-Acetylcy steine and Metamizole may falsely depress this assay.Serum Triglycerides Reference Interval Normal <150 mg/dL Borderline high 150 - 199 mg/dL High 200 - 499 mg/dL Very High > or = 500 mg/dL WBC (Bld) [#/Vol] 4.9 10*3/uL 4.4-11.0 [facility] Blood erythrocytes count (nu mber/volume)Ordered By: Adir Ambrocio on 08-16-2022 RBC (Bld) [#/Vol] 4.66 10*6/uL 4.2-5.4 [facility] Blood hemoglobin measurement (mass/volume)Ordered By: Adri Ambrocio on 08-16-2022 Hemoglobin (Bld) [Mass/Vol] 14.8 g/dL 12.0-15.0 [facility] Blood lymphocytes/100 leukoc ytesOrdered By: Adri Ambrocio on 08-16-2022 Lymphocytes/100 WBC (Bld) 27.8 % 19-41 [facility] Blood monocytes/100 leukocyt esOrdered By: Adri Ambrocio on 08-16-2022 Monocytes/100 WBC (Bld) 9.9 % 0-10 [facility] Blood platelet mean volumeOr dered By: Adri Ambrocio on 08-16-2022 Platelet mean volume (Bld) [Entitic vol] 10.0 fL 6.2-12.0 [facility] Determination of erythrocyte mean corpuscular volume (MCV)Ordered By: Adri Ambrocio on 08-16-2022 MCV (RBC) [Entitic vol] 97.0 fL 81-99 [facility] Hematocrit Auto (Bld) [Volum e fraction]Ordered By: Adri Ambrocio on 08-16-2022 Hematocrit (Bld) [Volume fraction] 45.2 % 37-47 [facility] - Chemistry and C hemistry - challengeOrdered By: Adri Ambrocio on 08-16-2022 ALP [Catalytic activity/Vol] 108 U/L 45-117 [facility] ALT [Catalytic activity/Vol] 30 U/L 13-56 [facility] CO2 [Moles/Vol] 28.0 mmol/L 21.0-32.0 [facility] Globulin (S) [Mass/Vol] 3.4 g/dL 2.2-4.2 [facility] Urea nitrogen/Creatinine [Mass ratio] 18.1 mg/mg 10-20 [facility] - Hematology and Cell countsOrdered By: Adri Ambrocio on 08-16-2022 Erythrocyte distribution width (RBC) [Entitic vol] 47.4 fL 35.1-43.9 [facility] Erythrocyte distribution width (RBC) [Ratio] 13.2 % 11.6-14.6 [facility] Immature granulocytes/100 WBC (Bld) 0.200 % 0.0-0.9 [facility] Comment on above: IG% - Immature Granu locytes (promyelocytes, myelocytes and metamyelocytes) > 1% indicates that a LEFT SHIFT is Present. MCH (RBC) [Entitic mass] 31.8 pg 27.0-32.0 [facility] Nucleated RBC/100 WBC (Bld) [Ratio] 0 % 0-5 [facility] MCHC Auto (RBC) [Mass/Vol]Or dered By: Adri Ambrocio on 08-16-2022 MCHC (RBC) [Mass/Vol] 32.7 g/dL 32-36 [facility] No Panel InformationOrdered By: Adri Ambrocio on 08-16-2022 Estimated GFR (MDRD) Amer 91 mL/min >60 [facility] Comment on above: GFR Calc Estimated GFR (MDRD) Non-Af Amer 75 mL/min >60 [facility] Comment on above: Non- GFR Calc Thyroid Stimulating Hormone (TSH) 1.49 uIU/mL 0.358-3.74 [facility] Platelets bldOrdered By: Christian Ambrocio on 08-16-2022 Platelets (Bld) [#/Vol] 283 10*3/uL 150-450 [facility] Serum or plasma albumin maria antonia urement (mass/volume)Ordered By: Adri Ambrocio on 08-16-2022 Albumin [Mass/Vol] 3.9 g/dL 3.2-5.0 [facility] Serum or plasma albumin/glob ulin mass ratioOrdered By: Adri Ambrocio on 08-16-2022 Albumin/Globulin [Mass ratio] 1.1 {ratio} 0.9-2.4 [facility] Serum or plasma calcium maria antonia urement (mass/volume)Ordered By: Adri Ambrocio on 08-16-2022 Calcium [Mass/Vol] 9.4 mg/dL 8.5-10.1 [facility] Serum or plasma cholesterol in HDL measurement (mass/volume)Ordered By: Adri Ambrocio on 08-16-2022 Cholesterol in HDL [Mass/Vol] 94 mg/dL >40 [facility] Comment on above: The drugs N-Acetylcy steine and Metamizole may falsely depress this assay. Reference Range HDL <40 mg/dL Low HDL Cholesterol HDL >or= 60 mg/dL High HDL Cholesterol Serum or plasma cholesterol in VLDL measurement (mass/volume)Ordered By: Adri Ambrocio on 08-16-2022 Cholesterol in VLDL [Mass/Vol] 16 mg/dL 5-40 [facility] Serum or plasma creatinine m easurement (mass/volume)Ordered By: Adri Ambrocio on 08-16-2022 Creatinine [Mass/Vol] 0.83 mg/dL 0.55-1.02 [facility] Comment on above: The validity of the calculated GFR & GFRAA in patients over 70 years has not been determined. Clinical correlation is essential. Serum or plasma low density lipoprotein (LDL) cholesterol measurement (mass/volume)Ordered By: Adri Ambrocio on 08-16-2022 Cholesterol in LDL [Mass/Vol] 141 mg/dL 0-130 [facility] Serum or plasma urea nitroge n measurement (mass/volume)Ordered By: Adri Lolly on 08-16-2022 Urea nitrogen [Mass/Vol] 15 mg/dL 7-18 [facility] Thin prep Papanicolaou smear with manual screeningOrdered By: Adri Lolly on 08-16-2022 Thin prep Papanicolaou smear with manual screening 21 U/L 15-37 [facility] Thin prep Papanicolaou smear with manual screening 3 5-15 [facility] Whole blood hemoglobin A1c/t otal hemoglobin ratio (mass fraction)Ordered By: Adri Ambrocio on 08-16-2022 HbA1c (Bld) [Mass fraction] 4.9 % 3.8-5.6 [facility] Comment on above: Normal < 5.7 % Predi abetic 5.7 - 6.4 % Diabetic >or= 6.5 % Please note range changes. CN[facility]on 06-29-2018 [facility] HNO ID: [id number] Author: Mammography Coordinator Service: ? Author Type: Physician Type: Letter Filed: 07/02/2018 11:32 PM Note Text: [facility] [address]. [address] [place] [address] June 29, 2018 PID: [id number] Gerri Georges [address] [place] [address] Dear Ms. Georges, We are pleased to [...] report will be kept on file at [facility] as part of your permanent medical record and are available for your continuing care. Thank you for allowing us to help in meeting your health care needs. Sincerely, Dr. Moran Interpreting Radiologist [facility] (Normal over 40) Normal [facility] SCREENINGon 06-29-2018 [facility] SCREENING * * *Final Report* * * DATE OF EXAM: Jun 29 2018 1:04PM [id number] - [facility] SCREENING / PROCEDURE REASON: multiple diagnoses * * * * Physician Interpretation * * * * RESULT: #[id number] - [facility] REHAB MEDICINE SCREENING BILATERAL DIGITAL SCREENING MAMMOGRAM WITH CAD: 06/29/2018 HISTORY: Multiple Diagnoses /Screening Mammogram - patient reports no symptoms. RESULT: TECHNIQUE: The study was acquired using full field digital technology and interpreted from soft copy. Current study was also evaluated with a Computer Aided Detection (CAD). Comparison is made to exam dated: 05/16/2017 mammogram - [facility]. The tissue of both breasts is heterogeneously dense. This may lower the sensitivity of mammography. No significant masses, calcifications, or other findings are seen in either breast. There has been no significant interval change. IMPRESSION: NEGATIVE There is no mammographic evidence of malignancy. A 1 year screening mammogram is recommended. Sachi Moran M.D., mc/karyn:06/29/2018 13:20:05 Teacher Lip Reading(s): RT Maddy(R)(M), [facility] letter sent: Normal over 40 Mammogram BI-RADS: [...] Health, Family Medicine, and Medical/Surgical Oncology, the [facility] has carefully reviewed the data and reached [...] their providers when to stop screening mammograms. Message Clerk: Karyn Transcribe Date/Time: Jun 29 2018 1:04P Dictated by: SACHI HART MD This examination was interpreted and the report reviewed and electronically signed by: SACHI HART MD on Jun 29 2018 1:20PM EST [id number] Normal [facility] Vital Signs Date Time Vital Sign Value Performing Clinician Faci lity 01-23-2025 12:37-0400 Body temperature 96.8 [degF] Dr. Soledad Nuñez MD Work Phone: [facility] 01-23-2025 12:37-0400 Diastolic blood pressure 72 mm[Hg] Dr. Soledad Nuñez MD Work Phone: [facility] 01-23-2025 12:37-0400 Heart rate 98 /min Dr. Soledad Nuñez MD Work Phone: 4(992)577-163405 [place] [address] 01-23-2025 12:37-0400 Respiratory rate 16 /min Dr. Soledad Nuñez MD Work Phone: [facility] 01-23-2025 12:37-0400 SaO2% (BldA) [Mass fraction] 99 % Dr. Soledad Nuñez MD Work Phone: [facility] 01-23-2025 12:37-0400 Systolic blood pressure 124 mm[Hg] Dr. Soledad Nuñez MD Work Phone: [facility] 01-23-2025 11:44-0400 Body height 172.[address] Soledad Nuñez MD Work Phone: [facility] 01-23-2025 11:44-0400 Body mass index (BMI) [Ratio] 31.4 kg/m2 Dr. Soledad Nuñez MD Work Phone: [facility] 01-23-2025 11:44-0400 Body weight 93.[address] Soledad Nuñez MD Work Phone: [facility] 01-16-2025 15:39-0400 Body temperature 98 [degF] Dr. Soledad Nuñez MD Work Phone: [facility] 01-16-2025 15:39-0400 Diastolic blood pressure 76 mm[Hg] Dr. Soledad Nuñez MD Work Phone: 5(616)274-608705 [place] [address] 01-16-2025 15:39-0400 Heart rate 68 /min Dr. Soledad Nuñez MD Work Phone: 6(567)080-193552 [place] [address] 01-16-2025 15:39-0400 Respiratory rate 16 /min Dr. Soledad Nuñez MD Work Phone: 6(485)435-707152 [place] [address] 01-16-2025 15:39-0400 SaO2% (BldA) [Mass fraction] 100 % Dr. Soledad Nuñez MD Work Phone: 6(329)888-937952 [place] [address] 01-16-2025 15:39-0400 Systolic blood pressure 114 mm[Hg] Dr. Soledad Nuñez MD Work Phone: 5(925)237-337152 [place] [address] 01-16-2025 14:37-0400 Body mass index (BMI) [Ratio] 31.4 kg/m2 Dr. Soledad Nuñez MD Work Phone: 8(780)914-298452 [place] [address] 01-16-2025 14:37-0400 Body weight 93.[address] Soledad Nuñez MD Work Phone: 9(938)567-105652 [place] [address] 01-12-2025 17:56-0400 Body weight 94.[address] Soledad Nuñez MD Work Phone: 5(012)635-959752 [place] [address] 01-12-2025 17:20-0400 Body height 172.[address] Soledad Nuñez MD Work Phone: 3(029)892-340052 [place] [address] 01-12-2025 17:20-0400 Body mass index (BMI) [Ratio] 31.6 kg/m2 Dr. Soledad Nuñez MD Work Phone: 2(586)873-856352 [place] [address] 01-12-2025 17:20-0400 Body temperature 98.1 [degF] Dr. Soledad Nuñez MD Work Phone: 3(997)364-441152 [place] [address] 01-12-2025 17:20-0400 Diastolic blood pressure 77 mm[Hg] Dr. Soledad Nuñez MD Work Phone: [facility] 01-12-2025 17:20-0400 Heart rate 69 /min Dr. Soledad uNñez MD Work Phone: 3(886)462-802405 [place] [address] 01-12-2025 17:20-0400 Respiratory rate 18 /min Dr. Soledad Nuñez MD Work Phone: 2(787)056-729752 [place] [address] 01-12-2025 17:20-0400 SaO2% (BldA) [Mass fraction] 99 % Dr. Soledad Nuñez MD Work Phone: 8(918)703-771952 [place] [address] 01-12-2025 17:20-0400 Systolic blood pressure 127 mm[Hg] Dr. Soledad Nuñez MD Work Phone: 4(087)358-572452 [place] [address] 01-09-2025 17:47-0400 Body temperature 98.2 [degF] Dr. Soledad Nuñez MD Work Phone: 5(808)033-515752 [place] [address] 01-09-2025 17:47-0400 Diastolic blood pressure 72 mm[Hg] Dr. Soledad Nuñez MD Work Phone: 3(012)751-346452 [place] [address] 01-09-2025 17:47-0400 Heart rate 54 /min Dr. Soledad Nuñez MD Work Phone: 3(340)540-265552 [place] [address] 01-09-2025 17:47-0400 Respiratory rate 18 /min Dr. Soledad Nuñez MD Work Phone: 2(356)425-533005 [place] [address] 01-09-2025 17:47-0400 SaO2% (BldA) [Mass fraction] 100 % Dr. Soledad Nuñez MD Work Phone: 9(410)314-914052 [place] [address] 01-09-2025 17:47-0400 Systolic blood pressure 145 mm[Hg] Dr. Soledad Nuñez MD Work Phone: 4(796)038-599052 [place] [address] 01-09-2025 16:19-0400 Body height 172.[address] Soledad Nuñez MD Work Phone: 9(323)467-077152 [place] [address] 01-09-2025 16:19-0400 Body mass index (BMI) [Ratio] 31.1 kg/m2 Dr. Soledad Nuñez MD Work Phone: [facility] 01-09-2025 16:19-0400 Body weight 93.[address] Soledad Nuñez MD Work Phone: [facility] 12-29-2022 11:02-0400 Body temperature 97.1 [degF] DO Adri Lolly Work Phone: [facility] 12-29-2022 11:02-0400 Diastolic blood pressure 68 mm[Hg] DO Adri Lolly Work Phone: [facility] 12-29-2022 11:02-0400 Heart rate 52 /min DO Adri Lolly Work Phone: [facility] 12-29-2022 11:02-0400 Respiratory rate 16 /min DO Adri Lolly Work Phone: [facility] 12-29-2022 11:02-0400 SaO2% (BldA) [Mass fraction] 100 % DO Adri Lolly Work Phone: [facility] 12-29-2022 11:02-0400 Systolic blood pressure 115 mm[Hg] DO Adri Lolly Work Phone: [facility] 12-29-2022 09:32-0400 Body height 172.72 cm DO Adri Lolly Work Phone: [facility] 12-29-2022 09:32-0400 Body mass index (BMI) [Ratio] 29.9 kg/m2 DO Adri Lolly Work Phone: [facility] 12-29-2022 09:32-0400 Body weight 89.3 kg DO Adri Lolly Work Phone: [facility] 11-03-2022 11:29-0400 Body mass index (BMI) [Ratio] 28.1 kg/m2 DO Adri Lolly Work Phone: [facility] 11-03-2022 11:29-0400 Body weight 83.91 kg DO Adri Ambrocio Work Phone: [facility] Encounters Encounter Date Encounter Type Care Provider Facility Start: 03-06-2025 ambulatory Soledad Nu[facility] y:[facility] Start: 01-23-2025 End: 01-23-[address] Soledad Nuñez MD Work Phone: -Emergency Department Start: 01-23-2025 End: 01-23-[address] Toribio Huntley MD -Emergency Department Work Phone: Start: 01-23-2025 End: 01-23-2025 ambulatory Soledad Nuñez Facility:[facility] Start: 01-16-2025 End: 01-16-[address] Soledad Nuñez MD Work Phone: -Emergency Department Start: 01-16-2025 End: 01-16-[address] Toribio Huntley MD -Emergency Department Work Phone: Start: 01-16-2025 End: 01-16-2025 ambulatory Toribio Huntley Facility:[facility] Start: 01-12-2025 End: 01-12-2025 Emergency department patient visit Dr. Soledad Nuñez MD Work Phone: -Emergency Department Work Phone: Start: 01-12-2025 End: 01-12-[address] Toribio Huntley MD -Emergency Department Work Phone: Start: 01-12-2025 End: 01-12-2025 ambulatory Toribio Huntley Facility:[facility] Start: 01-09-2025 End: 01-09-2025 Emergency department patient visit Dr. Soledad Nuñez MD Work Phone: -Emergency Department Work Phone: Start: 01-09-2025 End: 01-09-2025 Emergency department patient visit SOLEDAD NUÑEZ [facility] Start: 03-19-2024 End: 03-19-2024 ambulatory Soledad Nuñez Facility:[facility] Start: 02-28-2024 End: 03-04-2024 ambulatory Janneth Dale MD Work Phone: [facility] [place] Start: 03-22-2023 ambulatory Janneth Mann Work Phone: [facility] [place] Start: 12-29-2022 Non-patient / Non-visit DO Christian Ambrocio Work Phone: [facility] Start: 12-29-2022 End: 12-29-2022 Admission to same day surgery center DO Adri Ambrocio Work Phone: [facility]-Endoscopy Work Phone: Start: 12-29-2022 End: 12-29-2022 ambulatory DO Adri Ambrocio Work Phone: [facility] Work Phone: Start: 11-03-2022 Non-patient / Non-visit DO Christian Ambrocio Work Phone: [facility] Work Phone: Start: 10-26-2022 End: 10-26-2022 ambulatory [facility] Work Phone: Start: 10-26-2022 End: 10-26-2022 Patient encounter procedure [facility]-Outpatient [facility] Work Phone: Start: 08-16-2022 End: 08-16-2022 ambulatory [facility] Work Phone: Start: 08-16-2022 End: 08-16-2022 Patient encounter procedure [facility] Start: 04-07-2022 ambulatory Janneth Mann Work Phone: [facility] [place] Start: 06-29-2018 Encounter for genera l adult medical examination without abnormal findings [facility] Start: 06-29-2018 End: 06-29-2018 Patient encounter procedure [facility] [facility] Procedures Date Procedure Procedure Detail Performing Clinician [...] Detail Author Start: 12-20-2026 Urine microalbumin profile [facility] Start: 03-09-2026 Lipid 1996 panel - S donald or Plasma Lipid Screening [facility] Start: 03-09-2026 Lipid panel Lipid Screening [facility] Start: 03-09-2026 LIPID SCREEN LIPID SCREEN [facility] Start: 04-30-2025 HPV TESTING HPV TESTING [facility] Start: 04-30-2025 PAP TESTING PAP TESTING [facility] Start: 04-30-2025 Screening for malign ant neoplasm of cervix Cervical Cancer Screening [facility] Start: 01-23-2025 End: 01-23-2025 Patient encounter procedure [facility]art[facility] -Emergency Department Work Phone: Start: 01-09-2025 [facility] Start: 03-09-2024 DIABETES SCREEN DIABETES SCREEN [facility] Start: 03-09-2024 Diabetes Screening Diabetes Screenin g [facility] Start: 12-31-2023 Covid-19 Vaccine ( season) Covid-19 Vaccine ( season) [facility] Start: 12-31-2023 Influenza vaccination Influenza Vacc ine (#1) [facility] Start: 12-30-2022 Covid-19 Vaccine ( season) Covid-19 Vaccine ( season) [facility] Start: 12-30-2022 Influenza vaccination Influenza Vacc ine (#1) [facility] Start: 12-29-2022 Patient discharge [facility] Start: 07-04-2022 Colonoscopy COLONOSCOPY [facility] Start: 07-04-2022 COLORECTAL CANCER SCREENING COLORECTAL CANCER SCREENING [facility] Start: 07-04-2022 Screening for malign ant neoplasm of colon [facility] Start: 05-01-2022 Depression Assessment Depression Ass essment [facility] Start: 02-22-2022 Mammography [facility] Start: 02-22-2022 Screening for malign ant neoplasm of breast Mammogram Screening [facility] Start: 12-30-2021 Influenza vaccination INFLUENZA (#1) [facility] Start: 05-04-2021 COVID-19 VACCINE (4 - Booster for Pfizer series) COVID-19 VACCINE (4 - Booster for Pfizer series) [facility] Start: 05-01-2021 DEPRESSION ASSESSMENT DEPRESSION ASS ESSMENT [facility] Start: 2009 COLOGUARD (FIT-DNA) COLOGUARD (FIT-D NA) [facility] Start: [address] COLONOGRAPHY [facility] Start: 2009 FECAL OCCULT BLOOD FECAL OCCULT BLOO D [facility] Start: 2009 Screening for malign ant neoplasm of colon [facility] Start: 2009 SIGMOIDOSCOPY SIGMOIDOSCOPY [facility] Start: 1982 Anxiety Screening Anxiety Screening [facility] Start: 1982 Depression Screening Depression Scre ening [facility] Start: 1965 HEPATITIS B (1 of 3 - 3-dose series) HEPATITIS B (1 of 3 - 3-dose series) [facility] Start: 1965 Hepatitis B Vaccine (1 of 3 - 3-dose series) Hepatitis B Vaccine (1 of 3 - 3-dose series) [facility] Colonoscopy [facility] End: 03-29-2025 DBT Breast - bilateral screening DORIAN SCREENING W [facility] Radiology Routine Encounter for screening mammogram for breast cancer 1 Occurrences starting 02/28/2024 until 03/29/2025 [facility] Work Phone: Comment on above: 1 Occurrences starti ng 02/28/2024 until 03/29/2025 End: 05-07-2023 DORIAN SCREENING W DARIUS DORIAN SCREENING [facility] Radiology Routine Encounter for screening mammogram for breast cancer 1 Occurrences starting 04/07/2022 until 05/07/2023 [facility] Work Phone: Comment on above: 1 Occurrences starti ng 04/07/2022 until 05/07/2023 End: 04-20-2024 DORIAN SCREENING W DARIUS DORIAN SCREENING [facility] Radiology Routine Encounter for screening mammogram for breast cancer 1 Occurrences starting 03/22/2023 until 04/20/2024 [facility] Work Phone: Comment on above: 1 Occurrences starti ng 03/22/2023 until 04/20/2024 Patient Education ED Animal Bite (General) ED Hypertension, To Be Confirmed [facility] Work Phone: Patient referral [facility] Work Phone: Immunizations Immunization Date Immunization Notes Care Provider Elías alexander 01-23-2025 rabies vaccine, for intramuscular injection Dr. Soledad Nuñez MD Work Phone: [facility] 01-16-2025 rabies vaccine, for intramuscular injection Dr. Soledad Nuñez MD Work Phone: [facility] 01-12-2025 rabies vaccine, for intramuscular injection Dr. Soledad Nuñez MD Work Phone: [facility] 01-09-[address] Lizette Nuñez MD Work Phone: [facility] 01-09-2025 rabies vaccine, for intramuscular injection Dr. Soledad Nuñez MD Work Phone: [facility] 02-12-2022 influenza virus vacc ine, unspecified formulation Janneth Dale MD Work Phone: [facility] 03-01-2021 influenza, injectabl e, quadrivalent, contains preservative Janneth Dale MD Work Phone: [facility] 06-23-2020 zoster vaccine recombinant Janneth Dale MD Work Phone: [facility] Work Phone: 04-06-2020 zoster vaccine recombinant Janneth Dale MD Work Phone: [facility] Work Phone: 12-20-2016 tetanus toxoid, redu joycelyn diphtheria toxoid, and acellular pertussis vaccine, adsorbed Janneth Dale MD Work Phone: [facility] 05-21-2012 influenza virus vacc ine, unspecified formulation Janneth Dale MD Work Phone: [facility] Payers Date Payer Category Payer Unknown [id number] 2024 Self-pay 2024 Unknown [id number] 2014 Unknown [id number] 1965 Unknown [id number] [id number] Unknown [id number] Unknown [id number] [id number] Unknown [id number] [id number] [id number] Unknown [id number] 2.16.8 [id number] Unknown [id number] [id number] [id number] Unknown [id number] [id number] [id number] Social History Date Type Detail Facility Start: 02-11-2013 End: 01-09-2025 Tobacco smoking status NHIS Never smoked tobacco [facility] Start: 02-11-2013 Tobacco use and exposure Smokeless tobacco non-user [facility] Start: 03-09-2021 Alcohol intake Current drinker of alcohol (finding) [facility] Start: 04-04-2020 End: 03-09-2021 Alcohol intake [facility] Start: 02-24-2020 History SDOH Alcohol Frequency 4 [facility] Start: 02-24-2020 End: 02-22-2021 History SDOH Alcohol Std Drinks 1 [facility] Start: 02-24-2020 End: 02-22-2021 History SDOH Social Connections Get Together 2 [facility] Start: 02-24-2020 History SDOH Social Connections Living 3 [facility] Start: 02-24-2020 History SDOH Financial 5 [facility] Start: 02-24-2020 Education 17 [facility] Start: 1965 Sex Assigned At Not on file [facility] Start: 1965 Sex Assigned At Female [facility] Start: 12-27-2022 Tobacco smoking status NHIS Unknown if ever smoked [facility] Start: 02-24-2020 End: 04-04-2020 Social connection and isolation panel [facility] Do you belong to any clubs or organizations such as orthodox groups, unions, fraternal or athletic groups, or school groups? No [facility] Are you now , , , , never or living with a partner? [facility] How often to you hav e a drink containing alcohol? 2-3 time sa week [facility] How many standard dr inks containing alcohol do you have on a typical day? 1 or 2 [facility] How often do you hav e 6 or more drinks on 1 occasion? Never [facility] How hard is it for y ou to pay for the very basics like food, housing, medical care, and heating Not hard at all [facility] Do you feel stress - tense, restless, nervous, or anxious, or unable to sleep at night because your mind is troubled all the time - these days [OSQ] To some extent [facility] (I/We) worried wheth er (my/our) food would run out before (I/we) got money to buy more. Never true [facility] Start: 02-24-2020 Gender identity Identifies as female gender (finding) [facility] Start: 02-24-2020 Sexual orientation Heterosexual (finding) [facility] Goals Date Patient Goal Desired Activity /State Mental Status Date Assessment Result Facility 12-29-2022 Cognitive function Level Of Cons ciousness Follows Commands;Drowsy [facility] Work Phone: 12-29-2022 Cognitive function Voice/Name [facility] Work Phone: Clinical Notes 01-25-2019 to 01-09-2025 Note Date & Type Note Facility 01-09-2025 Discharge summary [facility] 01-09-2025 Discharge summary Note Date/Time January 09, 2025 4:42pm [facility] Medical Records Department [address] [place] [address] Emergency Department Summary 01/09/25 MR#: [id number] Acct: [id number] Name: GERRI GEORGES Rep #:[id number] : 1965 59 From: Toribio Huntley MD PCP: Dr. Soledad Nuñez MD Status:ID E ER Location: ED HPI History of [...] ?Type multivitamin 1 tab PO DAILY 11/03/22 08/2 12/21 History cholecalciferol (vitamin D3) 25 25 mcg [...] has puncture wound daughter who is a commercial fisherman is concerned this puncture was consistent with [...] Care Provider] - 1-2 Weeks Print Language: Danish Disposition Disposition: Home, Self Care What to do if you have Problems For any increased pain, shortness of breath, bleeding, nausea or vomiting, chestpain, or any unexpected problems, contact your Primary Care Provider. Call [facility] ([phone]) or report to the closest Emergency Room. Call 911 if necessary. 01/09/25 1642 <Electronically signed by Toribio Huntley MD> Cosigner Signature (if applicable): CC: Dr. Soledad Nuñez MD ~ Signed [facility] Work Phone: 1(818) 856-921810-30-2024 NotePatient Outreach (INTMMN) GERRI GEORGES ([id number]) 1965 F Date Time Provider Department 02/28/24 JANNETH DALE INTMMN During your visit today, we recorded the following information about you: Allergies As of Date: 02/28/2024 (No Known Allergies) Date Reviewed: 03/09/2021 Reviewed by: Marisela Hernandez OD - Fully Assessed Visit Diagnosis:Encounter for screening mammogram for breast cancer [Z12.31] Order(s):[facility] SCREENING W DARIUS [[id number]] Order #: [id number] FUTURE Prescriptions as of 03/04/2024 - cholecalciferol, Vitamin D3, (VITAMIN D3) 1,250 mcg (50,000 unit) cap capsule Take 1 capsule by mouth one time a week. - Gorin-3 Fatty Acids-Vitamin E (FISH OIL) 1,000 mg [...] LASIK [Z98.890] 01/29/2019 Encounter Status:Closed by RUTH VARNERUSERobert on 03/04/24[facility] 03-22-2023 NotePatient Outreach (INTMMN) GERRI GEORGES ([id number]) 1965 F Date Time Provider Department 03/22/23 JANNETH DALE INTMMGreg During your visit today, we recorded the following information about you: Allergies As of Date: 03/22/2023 (No Known Allergies) Date Reviewed: 03/09/2021 Reviewed by: Marisela Hernandez OD - Fully Assessed Visit Diagnosis:Encounter for screening mammogram for breast cancer [Z12.31] Order(s):[facility] SCREENING W DARIUS [[id number]] Order #: [id number] FUTURE Prescriptions as of 03/27/2023 - cholecalciferol, Vitamin D3, (VITAMIN D3) 1,250 mcg (50,000 unit) cap capsule Take 1 capsule by mouth one time a week. - Gorin-3 Fatty Acids-Vitamin E (FISH OIL) 1,000 mg [...] 01/29/2019 Encounter Status:Closed by TELLY, PRODUSER on 03/27/23[facility] 12-29-2022 Procedure [facility]08-31-2023 Procedure note [facility]09-27-2019 History of Past illness Narrative* Problem Noted Date Resolved Date Metrorrhagia 01/25/2019 documented as of this encounter (statuses as of 04/11/2022) [facility]-27[facility]2019 History of Past illness Narrative* Problem Noted Date Diagnosed Date Resolved Date Metrorrhagia 01/25/2019 documented as of this encounter (statuses as of 03/27/2023) [facility] Diagnosis Encounter for screening mammogram for breast cancer documented in this encounter [facility] assessment [facility]* Diagnosis Onset Date Resolution Status Encounter for screening for malignant neoplasm of colo n acute [facility] Work Phone: evaluation note* Diagnosis Encounter for screening mammogram for breast cancer documented in this encounter [facility] Author Cheko Friend [facility] December 29, 2022 10:15am Note Date/Time December 29, 2022 10 :15am [facility] Medical Records Department [address] [place] [address] History & Physical Exam 12/29/22 1013 MR#: [id number] Acct: [id number] Name: GERRI GEORGES Rep #:[id number] : 1965 57 From: Cheko Kirby DO PCP: Adri Ambrocio DO Status:REG S DC Location: [place] [address] HPI - General General Date of Admission: [...] take any medicines on a daily basis. FORMERLY [facility], [facility] Medical History (Updated 12/27/22 @ 09:33 [...] (if applicable): CC: Adri Ambrocio, DO; Cheko Kirby DO~ Signed [facility] Work Phone: Reason for referral (narrative)* Diagnostic Procedure Only (Routine) - Pending Review Specialty Diagnoses / Procedures Referred By Kayce lara Referred To Contact [facility] Diagnoses Encounter for screening mammogram for breast cancer Procedures DORIAN SCREENING W DARIUS SCREENING DIGITAL BREAST TOMOSYNTHESIS BI SCREENING MAMMOGRAPHY BI 2-VIEW BREAST INC Janneth Flores MD [address] [place] [address] [facility] [address] [place] [address] Referral ID Status Reason Start Date Expiration Date Visits Requested Visits Authorized [id number] Pending Review Auto-Generat ed Referral 04/07/2022 05/07/[address] [facility] for referral (narrative)* Diagnostic Procedure Only (Routine) - Pending Review Specialty Diagnoses / Procedures Referred By Kayce lara Referred To Contact [facility] Diagnoses Encounter for screening mammogram for breast cancer Procedures DORIAN SCREENING W DARIUS SCREENING DIGITAL BREAST TOMOSYNTHESIS BI SCREENING MAMMOGRAPHY BI 2-VIEW BREAST INC Janneth Flores MD [address] [place] [address] [facility] [address] [place] [address] Referral ID Status Reason Start Date Expiration Date Visits Requested Visits Authorized [id number] Pending Review Auto-Generat ed Referral 3 04/20/[address] [facility] for referral (narrative)* Diagnostic Procedure Only (Routine) - New Request Specialty Diagnoses / Procedures Referred By Contac t Referred To Contact [facility] Diagnoses Encounter for screening mammogram for breast cancer Procedures DORIAN SCREENING W DARIUS SCREENING DIGITAL BREAST TOMOSYNTHESIS BI SCREENING MAMMOGRAPHY BI 2-VIEW BREAST INC CAD Janneth Dale MD [address] [place] [address] [facility] [address] [place] [address] Referral ID Status Reason Start Date Expiration Date Visits Requested Visits Authorized [id number] New Request Auto-Generat ed Referral 4 03/29/2025 1 1 [facility] for referral (narrative)No reason for referral information [facility] Work Phone: Summary Purpose Family History No Family History Records FoundNo Family History Records FoundNo Family History Records FoundNo Family History Records Found Advance Directives No Advanced Directives Records Found Advance Directive Response Recorded Date/ Time Living Will No December 27 9:33am Power of Laboratory Mechanical Technician No December 27 023 9:33am Advance Directive Response Recorded Date/ Time Do you have a Healthcare Power of Laboratory Mechanical Technician? Yes January 09, 2025 4:30pm Chief Complaint and Reason for Visit Chief Complaint SCREENING Chief Complaint SCREENING Amb Documentation Reason for Visit Encounter for screen ing for malignant neoplasm of colon Chief Complaint Admit Date BITE January 09, 2025 4:17pm Chief Complaint Admit Date BITE January 09, 2025 4:17pm Rabies Vaccine January 12, 2025 5:19pm Chief Complaint Admit Date BITE January 09, 2025 4:17pm Rabies Vaccine January 12, 2025 5:19pm meds January 16, 2025 2:36pm RABIES January 23, 2025 11:44am Additional Source Comments INFORMATION SOURCE (unrecogn ized section and content) DATE CREATED AUTHOR 07/04/2018 [facility] DATE CREATED AUTHOR AUTHOR'S ORGANIZ ATION 03/04/2024 [facility] DATE CREATED AUTHOR AUTHOR'S ORGANIZ ATION 01/12/2025 [facility] DATE CREATED AUTHOR AUTHOR'S ORGANIZ ATION 03/08/2025 [facility] Source Comments (unrecognize d section and content) In the event this informatio n is protected by the Federal Confidentiality of Alcohol and Drug Abuse Patient Records regulations: The Federal rules restrict any use of the information to criminally investigate or prosecute any alcohol or drug abuse patient.[facility] the event this information is protected by the Federal Confidentiality of Alcohol and Drug Abuse Patient Records regulations: The Federal rules restrict any use of the information to criminally investigate or prosecute any alcohol or drug abuse patient.[facility] the event this information is protected by the Federal Confidentiality of Alcohol and Drug Abuse Patient Records regulations: The Federal rules restrict any use of the information to criminally investigate or prosecute any alcohol or drug abuse patient.[facility] Care Teams (unrecognized sec tion and content) Team Status: Active Member Role Status Dates Adri Ambrocio , DO Primary Care Provider Active Team Status: Active Member Role Status Dates Adri Ambrocio , DO Primary Care Provider Active Angie Olvera Attending Provider Active Team Status: Active Member Role Status Dates Adri Ambrocio , DO Primary Care Provider, Referring Provider Active Dr. Still Friend , DO Attending Provider, Other Prov ider Active Team Status: Inactive Member Role Status Dates Adri Ambrocio DO Primary Care Provider, Attending Provider Active Team Status: Inactive Member Role Status Dates Adri Ambrocio DO Primary Care Provider, Referring Provider Active Dr. Cheko Kirby DO Attending Provider Active Exercise Rider Relationship Specialty Start Date End Date Janneth Dale MD [address] [place] [address] PCP - General Internal Medicine 02/25/20 Exercise Rider Relationship Specialty Start Date End Date Janneth Dale MD [address] [place] [address] PCP - General Internal Medicine 02/25/20 Team [...] January 12, 2025 End: January 12, 2025 Team Status: Active Member Role/Relationship Status Dates Dr. Soledad Nuñez MD Primary care physician Active Team Status: Inactive Member Role/Relationship Status Dates Dr. Soledad Nuñez MD Primary care physician Active Start: January 09, 2025 End: January 09, 2025 Dr. Toribio Huntley MD Attending physician Active St art: January 09, 2025 End: January 09, 2025 Dr. Toribio Huntley MD Emergency Department Physician Active Start: January 09, 2025 End: January 09, 2025 Team Status: Inactive Member Role/Relationship Status Dates Dr. Soledad Nuñez MD Primary care physician Active Start: January 12, 2025 End: January 12, 2025 Dr. Toribio Huntley MD Attending physician Active St art: January 12, 2025 End: January 12, 2025 Team Status: Inactive Member Role/Relationship Status Dates Dr. Soledad Nuñez MD Primary care physician Active Start: January 16, 2025 End: January 16, 2025 Dr. Toribio Huntley MD Attending physician Active St art: January 16, 2025 End: January 16, 2025 Team Status: Inactive Member Role/Relationship Status Dates Dr. Soledad Nuñez MD Primary care physician Active Start: January 23, 2025 End: January 23, 2025 Dr. Toribio Huntley MD Attending physician Active St art: January 23, 2025 End: January 23, 2025 Goals (unrecognized section and content) Goals [...] BE BASED ON THE PRIMARY CLINICAL RECORDS. [employer] [facility]. provides no warranty or guarantee of the accuracy or completeness of information in this document.
== END | disposition home or self-care (01) ==
LOC: OPUS 08:20
PROVIDERS: PCP Family Medicine; Referring Provider Family Medicine; Visit Provider Family Medicine
DX: R92.8 Other abnormal and inconclusive findings on diagnostic imaging of breast (principal)
CPT/HCPCS: 76642